=== PATIENT | male | born 1965 | race Caucasian/White ===

== ENCOUNTER 2018-05-10 23:30 | Inpatient (IN) | payer OTHER ==
[2018-05-11] MEDS ORDERED: Lorazepam 2 MG/ML VIAL SLOW IVP PRN (01:38)
[2018-05-11] MEDS ORDERED: Ondansetron PF 4 MG/2 ML Vial IVP PRN (01:42)
[2018-05-11] MEDS: Lorazepam 2 MG/ML VIAL SLOW IVP PRN ×4 (02:06→20:32)
[2018-05-11] MEDS: D5 1/2 NS w/20 mEq KCL 1,000 ML IV SCH ×3 (02:07→18:05)
[2018-05-11] MEDS: Morphine 2 MG/ML SYRINGE SLOW IVP PRN ×2 (02:12→06:03)
[2018-05-11] MEDS: Acetaminophen 1,000 MG in Premix Bag 1 BAG IVPB PRN ×2 (02:43→08:18)
[2018-05-11] MEDS ORDERED: Lidocaine 2% Jelly 5 ML TUBE TOP PRN (03:17)
[2018-05-11] MEDS ORDERED: Chloraseptic Spray 180 ml Bottle PO PRN (03:17)
[2018-05-11] MEDS ORDERED: Cepastat Lozenges 1 LOZ PO PRN (03:18)
[2018-05-11] MEDS ORDERED: Famotidine/PF 20 mg/2ml Vial SLOW IVP SCH ×2 (03:30→21:00)
[2018-05-11 03:36] VITALS: BMI 43.0
[2018-05-11] MEDS: Lorazepam 2 MG/ML VIAL SLOW IVP SCH ×2 (05:35→06:10)
--- NOTE | 2018-05-11 09:07 | RAD ---
RADIOGRAPH ABDOMEN 2 VIEWS: Date: 05/11/18 Time: 0833 hours HISTORY: Small bowel obstruction in 53-year-old male. COMPARISON: None. FINDINGS: The distal portion of a NG tube overlies the medial aspect of the left upper quadrant, overlapping ga s in small volume gastric bubble, with adjacent surgical clips. There are air fluid levels in nondila gasper right hemicolon. There is gas throughout nondilated transverse, descending, and sigmoid colon. Co ntrast material from prior outside study fills the urinary bladder. There is lack of small bowel gas. No pneumoperitoneum is identified under the left hemidiaphragm. Right hemidiaphragm is superior to, outside of field of view. IMPRESSION: 1. Nasogastric tube placement, apparently within a small volume, post bariatric surgery stomach. 2. Lack of small bowel gas makes it difficult to evaluate for small bowel obstruction. 3. CT is recommended if small bowel obstruction is suspected. POS: [facility]
[2018-05-12] MEDS: Lorazepam 2 MG/ML VIAL SLOW IVP PRN (00:25)
[2018-05-12] MEDS: D5 1/2 NS w/20 mEq KCL 1,000 ML IV SCH ×2 (02:30→11:57)
--- NOTE | 2018-05-12 03:50 | HP ---
CHIEF COMPLAINT: Abdominal pain. HISTORY OF PRESENT ILLNESS: Mr. Guzman is a 53-year-old man, who had fairly sudden onset of severe abdominal pain, nausea, and vomiting on the day prior to his admission. He states that his had been diagnosed with norovirus on Sunday, but at that time, he was asymptomatic. He had explosive diarrhea at home, but when he came to the emergency room, he was unable to produce a stool specimen for norovirus evaluation. He underwent a CT scan at an outside ER, which showed some dilated loops of bowel with decompressed distal loops of bowel, worrisome for a possible partial small bowel obstruction. An NG tube was placed and he was transferred to [place] for further care. Overnight, his NG tube has put out minimal nonbilious fluid. He has history of a gastric bypass in the past and has no further nausea. He has been passing gas, but has not had any bowel movement since his admission, and his x-ray showed bowel gas in the colon without much small bowel gas. His NG tube has since been discontinued, and he states that today he feels normal. He denies any abdominal pain or nausea and has not had any fevers or chills since admission, although he did have some low grade fevers prior to his admission. PAST MEDICAL HISTORY: Morbid obesity, status post gastric bypass surgery by Dr. Guerrero. He does have a history of polycythemia vera, hypertension, prediabetes, hyperlipidemia, and sleep apnea. PAST SURGICAL HISTORY: Lumbar surgery and bariatric surgery. He has had a bowel obstruction in the past, treated by lysis of adhesions and has also had successful nonoperative treatment of a partial bowel obstruction. SOCIAL HISTORY: Chewing tobacco use, but no drug use. He does drink alcohol. FAMILY HISTORY: He has a family history of atrial fibrillation and TIA. REVIEW OF SYSTEMS: 10-system review of systems is negative except per HPI. ALLERGIES: HE HAS MULTIPLE ALLERGIES INCLUDING CEFOXITIN, PROTONIX, STATINS, AND MASTISOL. HOME MEDICATIONS: Include, 1. Afrin. 2. Aspirin. 3. Wellbutrin. 4. Carvedilol. 5. Vitamin D3. 6. Clonidine. 7. Zetia. 8. . 9. Losartan/hydrochlorothiazide. 10. Metformin. 11. Daily multivitamin. 12. Sertraline. 13. Testosterone. 14. Zolpidem. PHYSICAL EXAMINATION: VITAL SIGNS: The patient has been afebrile since his admission. Heart rate in the 80s, respirations 20 to 24, and 91% to 93% saturated on room air. Blood pressure is normal to mildly elevated. GENERAL: Reveals a pleasant man, in no acute distress. He is not flushed or toxic in appearance. He is not jaundiced or icteric. BMI is 43. HEENT: Unremarkable. NECK: Supple without lymphadenopathy or thyroid nodules. HEART: Regular in its rate and rhythm without murmurs, rubs, or gallops. LUNGS: Clear to auscultation bilaterally. ABDOMEN: Soft, nontender, and nondistended. Bowel sounds are somewhat diminished. EXTREMITIES: Warm and well perfused without edema. NEUROLOGIC: No focal deficit. PSYCHIATRIC: Alert, oriented, and appropriate. LABORATORY DATA: White counts at the outside ER were fairly unremarkable. Outside CT images were reviewed and the patient does have some mildly dilated loops of small intestine. Distal small intestine looks normal in caliber, but I do not see a definite transition point and there is a fair amount of gas and stool in the colon. Followup abdominal x-rays this morning showed gas and stool in the colon with a paucity of small bowel gas. ASSESSMENT: Partial small bowel obstruction versus gastroenteritis. At this point, I am leaning toward gastroenteritis given the history of explosive diarrhea, fevers, and his 's recent diagnosis with norovirus. His symptoms appear to have abated and his NG tube has been discontinued. Given his bariatric surgery, NG tube decompression is not very effective, but I will leave him on n.p.o. status today and order a small bowel follow-through for tomorrow. If this is normal as I expect it to be, then we will advance his diet. If point of obstruction is identified, he may require repeat surgery for this. All of his questions were answered and he is satisfied with the plan of care. I will go ahead and restart some of his home medications. Job ID: [id number]
--- NOTE | 2018-05-12 12:00 | RAD ---
SMALL BOWEL SERIES: 05/12/2018 HISTORY: A 53-year-old male with abdominal distention and nausea with vomiting. TECHNIQUE: Bridal Consultant view obtained. Gastrografin administered after removal of NG tube. Serial overhead radiograph ic images. FINDINGS: Contrast fills and progresses out of the small volume stomach, into nondilated loops of small bowel. Normal small bowel fold pattern. Contrast reaches the right colon in 15 minutes. IMPRESSION: 1. Rapid transit of contrast. There is no small bowel obstruction. 2. Status post bariatric surgery. POS: [place]
[2018-05-12 16:31] VITALS: BP 138/92; TEMP 98.2
[2018-05-12] MEDS ORDERED: MD-Gastroview 120 ML BOT ONE (16:42)
== END 2018-05-12 16:44 | disposition home or self-care (01) | DRG 389 ==
LOC: SURG A 05-11 00:24
PROVIDERS: ADMIT Surgery; ATTEND Surgery
DX: K56.600 Partial intestinal obstruction, unspecified as to cause (principal); Z68.41 Body mass index [BMI] 40.0-44.9, adult; K52.9 Noninfective gastroenteritis and colitis, unspecified; Z72.0 Tobacco use; E66.01 Morbid (severe) obesity due to excess calories; Z98.84 Bariatric surgery status; I10 Essential (primary) hypertension; E78.5 Hyperlipidemia, unspecified; G47.30 Sleep apnea, unspecified
CPT/HCPCS: 74019; 74250; J0131; J2060; J2270; J2405; S0028

== ENCOUNTER 2019-05-08 08:06 | Observation (INO) | payer OTHER ==
[2019-05-08 08:37] LABS: #Eosinphils 0.3 thou/uL (0.0-0.7); #Lymphocytes 2.3 thou/uL (1.20-3.40); #Monocytes 0.7 thou/uL (0.11-0.59); #Neutrophils 6.7 thou/uL (1.40-6.50); %Basophils 0.4 % (0.0-1.0); %Eosinophils 2.8 % (0.0-10.0); %Lymphocytes 23.1 % (21.0-51.0); %Monocytes 6.8 % (0.0-10.0); %Neutrophils 66.9 % (42.0-75.0); Hemoglobin 14.8 g/dL (14.0-18.0); Mean Corpuscular HGB CONC 35.2 g/dL (32.0-36.0); Mean Corpuscular Hemoglobin 32.6 pg (27.0-31.0); Mean Corpuscular Volume 92.7 fL (78.0-98.0); Mean Platelet Volume 7.3 fL (7.4-10.4); Platelet Count 302 thou/uL (130-400); Red Blood Cell (RBC) Count 4.54 mill/uL (4.70-6.10); White Blood Cell (WBC) Count 10.1 thou/uL (4.8-10.8)
[2019-05-08 09:01] LABS: ALT (SGPT) 7 U/L (8-55); AST (SGOT) 24 U/L (5-34); Albumin 3.9 g/dL (3.5-5.0); Alkaline Phosphatase 114 U/L (40-110); Anion Gap 12 mmol/L (10-20); BUN (Urea Nitrogen) 17 mg/dL (8.4-25.7); Bilirubin, Total 1.2 mg/dL (0.2-1.2); CK (CPK) 515 U/L (30-200); Calc. Creatinine Clearance 0 mL/min (70-130); Calcium 8.7 mg/dL (7.8-10.44); Carbon Dioxide 28 mmol/L (22-29); Chloride 104 mmol/L (98-107); Estimated GFR-MDRD Greater than 90; Globulin 2.1 g/dL (2.4-3.5); Glucose 87 mg/dL (70-105); Lipase 16 U/L (8-78); Potassium 3.5 mmol/L (3.5-5.1); Sodium 140 mmol/L (136-145)
--- NOTE | 2019-05-08 09:22 | CT ---
CT OF THE ABDOMEN AND PELVIS WITH IV CONTRAST INDICATION: Abdominal swelling and right-sided and midline abdominal pain COMPARISON: None FINDINGS: ABDOMEN: Lung bases: There is a moderate size right pleural effusion with right basilar atelectasis. Liver: No focal lesion. Gallbladder: Normal appearing. Pancreas: Normal. Adrenal glands: Normal. Spleen: Normal. Kidneys and ureters: There is a large right sided retroperitoneal hematoma measuring 12.9 x 11.0 x 17 cm causing anterior displacement of the right kidney. No definite enhancing soft tissue mass is evident. The left kidney is normal-appearing. Vasculature: There are mild vascular calcifications seen involving the visualized vasculature. Lymph nodes:No lymphadenopathy. Free fluid in abdomen:No free fluid is evident. PELVIS: Small and large bowel: Colonic diverticulosis. Small bowel is of normal caliber. Appendix:Not definitely seen Bladder: Normal. Rectal and perirectal soft tissues:Normal. Reproductive structures: The prostate is enlarged measuring 6.3 cm. Free fluid in pelvis: No free fluid is evident. Lymphadenopathy pelvis: No lymphadenopathy is evident. Osseous structures: There is a left total hip prosthesis. There is scattered degenerative and osteoa rthritic changes. Soft tissues:Normal. IMPRESSION: 1. Large right-sided retroperitoneal hematoma causing some moderate anterior displacement of the righ t kidney. Follow-up CT evaluation to exclude presence of underlying retroperitoneal mass is recommended after resolution of the patient's symptoms. No definite suspicious enhancing mass is demo nstrated. 2. Moderate right pleural effusion with right basilar atelectasis. 3. Prostate enlargement 4. Colonic diverticulosis
[2019-05-08 10:01] LABS: PTT 26.2 SEC (22.9-36.1); Prothrombin Time 13.1 SEC (12.0-14.7)
[2019-05-08 10:10] LABS: Bacteria/HPF None Seen HPF (None Seen); Bilirubin Negative (Negative); Blood, Urine Negative (Negative); Clarity Clear (Clear); Glucose, Urine (Dipstick) Normal (Negative); Leukocyte Negative Leu/uL (Negative); Mucous/LPF 1+ LPF (<2+); Nitrite Negative (Negative); Protein, Urine (Dipstick) 30 mg/dL (Neg-Trace); RBC/HPF 0-3 HPF (0-3); Squamous Epithelial 0-3 HPF (0-3); WBC/HPF 0-3 HPF (0-3)
--- NOTE | 2019-05-08 10:22 | PDOC.FPRHP ---
- History of Present Illness Chief Complaint: abd pain History of Present Illness: Patient woke up with severe right flank pain in the middle of the night. States it felt "like a mule had kicked him in the side." He got up to walk around and took ibuprofen which helped his pain. 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 No penetrating injury or external injury evident. Denies bruising on side. Patient has also had URI for last several weeks with a lot of coughing. The coughing hurts his abdomen when coughing. Patient took amoxicillin for dental extraction last week. Patient takes daily [id number]. ED Course: Given NS 1L. Imaging ordered. - Allergies/Adverse Reactions Allergies Allergy/AdvReac Type Severity Reaction Status Date / Time cefoxitin sodium Allergy Severe Verified 05/08/19 12:51 [From Mefoxin] alcohol Allergy Verified 05/08/19 12:51 [From Mastisol Adhesive] gum mastic Allergy Verified 05/08/19 12:51 [From Mastisol Adhesive] methyl salicylate Allergy Verified 05/08/19 12:51 [From Mastisol Adhesive] pantoprazole sodium Allergy Verified 05/08/19 12:51 [From Protonix] storax Allergy Verified 05/08/19 12:51 [From Mastisol Adhesive] Xoarczh-[id number]-Vrw Reductase AdvReac Severe Verified 05/08/19 12:51 Inhibitor - Home Medications Medication Instructions Recorded Confirmed Type Aspirin 325 mg PO HS 01/21/15 05/08/19 History Ezetimibe [Zetia] 10 mg PO HS 01/21/15 05/08/19 History cloNIDine HCl 0.1 mg PO BID PRN 01/21/15 05/08/19 History Sertraline HCl 100 mg PO HS 05/11/18 05/08/19 History Zolpidem Tartrate 10 mg PO HS 05/11/18 05/08/19 History Carvedilol [Coreg] 12.5 mg PO HS 05/08/19 05/08/19 History Fexofenadine HCl [Meghna Allergy] 180 mg PO DAILY PRN 05/08/19 05/08/19 History Fluticasone Propionate [Flonase 2 spray EA NARE DAILY PRN 05/08/19 05/08/19 History Nasal [place]] Levothyroxine Sodium [Synthroid] 100 mcg PO HS 05/08/19 05/08/19 History Comments: Pt reports: Testosterone q2wk Carvedilol 12.5 QPM Ambien Zoloft Seroquel Clonidine PRN [id number] Will med rec. 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 Patient dips tobacco. FHx: DM maternal side, AD, Brain, breast, leukemia, testicular cancer, colon cancer, UC - Review of Systems General: reports: weight/appetite/sleep changes (lost 60 lbs since gastric sleeve). denies: fever/chills Eyes: denies: eye pain ENT: reports: nasal congestion, rhinorrhea Respiratory: reports: cough. denies: shortness of breath Cardiovascular: denies: chest pain, edema Gastrointestinal: reports: abdominal pain. denies: nausea, vomiting, diarrhea, constipation Genitourinary: denies: dysuria (denies hematuria) Skin: denies: rashes (currently sunburned, just returned from cruise) Musculoskeletal: reports: pain (R sided abdominal) Neurological: denies: syncope, weakness Psychological: reports: anxiety. denies: depression - Vital signs BP: 116/59, Pulse: 78, Resp: 18, Temp: 98.1 (Oral), Pain: 10, O2 sat: 95 on ( Room Air), Time: 05/08/2019 08:09. - Physical Exam Constitutional: NAD, awake, alert and oriented, well developed HEENT: normocephalic and atraumatic, other (few teeth visible) Neck: trachea midline Heart: RRR, normal S1/S2, no murmurs/rubs/gallops, no edema Lungs: CTAB, no respiratory distress, no wheezing Abdomen: soft, bowel sounds present, other (TTP over RUQ and R-side, coloration change around umbilicus (slight bruising)) Musculoskeletal: normal structure, normal tone, ROM grossly normal Neurological: no focal deficit Skin: no rash/lesions, capillary refill <2 seconds, no jaundice Heme/Lymphatic: no purpura, no petechia (Red-colored skin, likely due to sunburn , blanches) Psychiatric: normal mood and affect, intact recent and remote memory FMR H&P: Results - Labs Result Diagrams: 05/08/19 08:28 05/08/19 08:28 Lab results: WBC 10.1 thou/uL (4.8-10.8) 05/08/19 08:28 Hgb 14.8 g/dL (14.0-18.0) 05/08/19 08:28 Hct 42.1 % (42.0-52.0) 05/08/19 08:28 MCV 92.7 fL (78.0-98.0) 05/08/19 08:28 Plt Count 302 thou/uL (130-400) 05/08/19 08:28 Neutrophils % 66.9 % (42.0-75.0) 05/08/19 08:28 Sodium 140 mmol/L (136-145) 05/08/19 08:28 Potassium 3.5 mmol/L (3.5-5.1) 05/08/19 08:28 Chloride 104 mmol/L (98-107) 05/08/19 08:28 Carbon Dioxide 28 mmol/L (22-29) 05/08/19 08:28 BUN 17 mg/dL (8.4-25.7) 05/08/19 08:28 Creatinine 0.84 mg/dL (0.7-1.3) 05/08/19 08:28 Glucose 87 mg/dL (70-105) 05/08/19 08:28 Calcium 8.7 mg/dL (7.8-10.44) 05/08/19 08:28 Total Bilirubin 1.2 mg/dL (0.2-1.2) 05/08/19 08:28 AST 24 U/L (5-34) 05/08/19 08:28 ALT 7 U/L (8-55) L 05/08/19 08:28 Alkaline Phosphatase 114 U/L (40-110) H 05/08/19 08:28 Creatine Kinase 515 U/L (30-200) H 05/08/19 08:28 Serum Total Protein 6.0 g/dL (6.0-8.3) 05/08/19 08:28 Albumin 3.9 g/dL (3.5-5.0) 05/08/19 08:28 Lipase 16 U/L (8-78) 05/08/19 08:28 Urine Ketones Trace mg/dL (Negative) A 05/08/19 09:20 Urine Blood Negative (Negative) 05/08/19 09:20 Urine Nitrite Negative (Negative) 05/08/19 09:20 Ur Leukocyte Esterase Negative J[place]ito/uL (Negative) 05/08/19 09:20 Urine RBC 0-3 HPF (0-3) 05/08/19 09:20 Urine WBC 0-3 HPF (0-3) 05/08/19 09:20 Ur Squamous Epith Cells 0-3 HPF (0-3) 05/08/19 09:20 Urine Bacteria None Seen HPF (None Seen) 05/08/19 09:20 - Radiology Interpretation CT scan - abdomen Status: image reviewed by me, report reviewed by me Additional comment: Kidneys and ureters: There is a large right sided retroperitoneal hematoma measuring 12.9 x 11.0 x 17 cm causing anterior displacement of the right kidney. No definite enhancing soft tissue mass is evident. The left kidney is normal-appearing. IMPRESSION: 1. Large right-sided retroperitoneal hematoma causing some moderate anterior displacement of the righ t kidney. Follow-up CT evaluation to exclude presence of underlying retroperitoneal mass is recommended after resolution of the patients symptoms. No definite suspicious enhancing mass is demo nstrated. 2. Moderate right pleural effusion with right basilar atelectasis. 3. Prostate enlargement 4. Colonic diverticulosis Chest x-ray Status: image reviewed by me, report reviewed by me Additional comment: IMPRESSION:Right-sided pleural effusion and right basilar atelectasis. FMR H&P: A/P - Problem List (1) Retroperitoneal hematoma Current Visit: Yes Status: Acute Code(s): K66.1 - HEMOPERITONEUM (2) Status post fall Current Visit: Yes Status: Acute Code(s): Z91.81 - HISTORY OF FALLING (3) HTN (hypertension) Current Visit: Yes Status: Acute Code(s): I10 - ESSENTIAL (PRIMARY) HYPERTENSION (4) HLD (hyperlipidemia) Current Visit: Yes Status: Acute Code(s): E78.5 - HYPERLIPIDEMIA, UNSPECIFIED (5) Hypogonadotropic hypogonadism Current Visit: Yes Status: Acute - Plan Retroperitoneal hematoma - s/p fall x2, on [id number] daily - PT/INR normal - Lois consulted from ED. Appreciate recs as below: - H&H q8h. - Activity: Bedrest w/ up to private bathroom for first 24 hours. - If acute drop in Hgb on 3rd check, will order CT angio of abdomen and look for artery to embolize. - If all is well in first 24 hr, will space H&H checks to q12h and activity will be increased to up and around. - Tranfuse blood if needed. Type & Cross. - Hold home aspirin. No ibuprofen for pain. - Tylenol for pain initially. May escalate as needed. Chronic conditions: Obesity s/p gastric sleeve HTN HLD Anxiety Insomina - continue home meds, except the aspirin Code: full Fluids: none Diet: regular VTE ppx: SCDs GI PPx: none Disposition/LOS: medical, observation. Will monitor Hgb/Hct for 48 hrs. FMR H&P: Upper Level - Pertinent history 54 year old male with PMH HTN, HLD, and obesity presented to ED with right sided flank pain. Patient states that the flank pain was severe enough to wake him from sleep early this morning. He got up, walked around, and took some ibuprofen which he states improved the pain enough to allow him to go back to sleep. Patient woke up this AM with dull ache in right flank and an asymmetry in his abdomen with increased swelling on the right side noted by his who is a nurse. Patient was brought to ED for evaluation where he was found to have a large right sided retroperitoneal hematoma. Patient states he has fallen 2 times in the last 14 days at work. He landed on his back both times. One fall was on dirt and the other was on concrete. Patient does take daily ASA. Patient denies any bruising with falls or penetrating injuries. He denies any history of cancer. 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 Patient follows closely with Dr. Schneider. He does not have history of bleeding previously, nor does he have a known history of coagulopathy. Patient did get a gastric sleeve in 2015. He has had significant gradual weight loss since that time. - Pertinent findings General: Alert and oriented x3. No acute distress. Card: Distant heart sounds. RRR. No appreciable murmur. Resp: No acute respiratory distress. CTA bilaterally. Abdomen: Mild ecchymosis in central abdomen near scar. Tender to mild palpation in right upper quadrant. Ext: No cyanosis or lower extremity swelling. - Plan Date/Time: 05/08/19 1021 I, Mirta Pace, have evaluated this patient and agree with findings/plan as outlined by bakery pastry internship resident. Pertinent changes/additions are listed here. Right sided retroperitoneal hematoma with anterior kidney displacement - Dr. 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 Schneider Secondary polycythemia - D/t testosterone for above HTN - Continue home medication HLD - Not currently on statin due to adverse effects Anxiety - Continue home medications DVT PPX: SCD's; no lovenox given bleeding Code status: Full Dispo: Obs on medical. Anticipate LOS <48 hours. Addendum - Attending - Attending Attestation Date/Time: 05/08/19 [id number] I personally evaluated the patient and discussed the management with Dr. Williamson /Katelynn. I agree with the History, Examination, Assessment and Plan documented above with any addition or exceptions noted below. Patient is 54-year-old male presenting with acute onset of abdominal pain and distention over the last few hours. Patient had severe pain and presented to the emergency room for further evaluation. CT scan was obtained at that time which revealed a large right sided retroperitoneal hematoma. Patients blood counts were somewhat decreased from his baseline but overall stable at the time. Patients vital signs were also stable. Urology was consulted from the emergency room who recommended serial H&H measurements as well as bed rest overnight. Monitor for recurrence of bleeding and if so will need angiography. Pending clinical course, possible discharge home tomorrow if the bleeding has stopped and pain well-controlled. Further management per clinical course.
--- NOTE | 2019-05-08 10:32 | RAD ---
Portable chest: HISTORY: Right chest and abdominal pain. COMPARISON: CT abdomen with images through lung bases. 05/08/2019. FINDINGS:Opacification right lung base consistent with right pleural effusion and right basilar atele ctasis as confirmed on today's CT scan. Left lung clear. Heart and mediastinum unremarkable. IMPRESSION:Right-sided pleural effusion and right basilar atelectasis.
[2019-05-08] MEDS ORDERED: Acetaminophen 325 MG TAB PO PRN (11:25)
[2019-05-08] MEDS ORDERED: Ondansetron ODT 4 MG TAB PO PRN (11:25)
[2019-05-08] MEDS ORDERED: Ondansetron PF 4 MG/2 ML Vial IVP PRN (11:25)
[2019-05-08] MEDS ORDERED: Iopamidol 370 76% 50 ML VIAL FS ONE (11:43)
[2019-05-08 12:47] VITALS: BMI 38.6
--- NOTE | 2019-05-08 13:51 | CON ---
DATE OF CONSULTATION: 05/08/2019 Consulting is Emergency Room. Rope Walker is Dr. Abreu. REASON FOR CONSULTATION: Retroperitoneal hematoma. CHIEF COMPLAINT: Abdominal swelling. HISTORY OF PRESENT ILLNESS: Mr. Guzman is a 54-year-old white male, who presented to the emergency room today with complaints regarding worsening right flank pain and abdominal swelling. 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 He did not report any hematuria or ongoing pain afterwards, but he slipped and fell again onto his back a week ago. Again, he did not experience any hematuria or prolonged pain, and recovered. Last night, he began having abdominal discomfort and swelling along with pain in his right side. The pain got progressively worse to the point where he took some ibuprofen and tried to go back to bed. His noted that his abdomen looked more distended and with his pain now reaching levels up to approximately 6 to 7 and starting to become sharp instead of dull, she brought the patient to the emergency room where he underwent a CT scan demonstrating a large retroperitoneal hematoma on the right side. There was no obvious source of the bleeding. I was consulted for further assistance. On my discussion with the patient, he reports he has never had any kind of bleeding episodes before. He denies any history of hematuria or voiding difficulties. He is currently on testosterone replacement and is polycythemic as a result of this. He has no history of any type of malignancy previously, any previous urologic surgeries, or history of urolithiasis. ALLERGIES: 1. CEFOXITIN. 2. ALCOHOL. 3. GUM. 4. METHYLSALICYLATE. 5. STATINS. 6. STORAX. 7. PROTONIX. HOME MEDICATIONS: 1. Aspirin 325 once a day. 2. Bupropion 150 mg daily. 3. Vitamin D3 of 6000 units daily. 4. Zetia 10 mg daily. 5. Vascepa 2 g p.o. b.i.d. 6. Multivitamins 1 tablet daily. 7. Testosterone enanthate 200 mg IM every 2 weeks. 8. Clonidine 0.1 mg p.o. b.i.d. 9. Metformin 500 mg p.o. b.i.d. 10. Carvedilol 3.125 mg p.o. b.i.d. 11. Losartan/hydrochlorothiazide 1 tablet daily. 12. Afrin nasal spray 2 sprays to nose every night. 13. Sertraline 100 mg p.o. once a day. 14. Zolpidem 10 mg p.o. at night. PAST MEDICAL HISTORY: Significant for: 1. Low testosterone. 2. Hypertension. 3. Tuberculosis. 4. Prediabetes. 5. Hyperlipidemia. 6. Anxiety. 7. Insomnia. 8. Hypopituitarism. PAST SURGICAL HISTORY: 1. Left hip replacement. 2. Right knee replacement. 3. Multiple knee and meniscal repairs. 4. Small bowel obstruction with repair. 5. Laminectomy for spinal stenosis. 6. Gastric sleeve. 7. Cardiac catheterization. FAMILY HISTORY: Significant for diabetes, leukemia, breast cancer, testicular cancer, and colon cancer. SOCIAL HISTORY: The patient denies tobacco, alcohol, or illicit drug use. REVIEW OF SYSTEMS: A 12-point review of systems is reviewed and negative other than the right flank pain that the patient had commented on, specifically denies any fevers, chills, nausea, vomiting, chest pain, shortness of breath, hematuria, or voiding complaints. Remainder of 12-point review of systems is reviewed and otherwise negative. PHYSICAL EXAMINATION: VITAL SIGNS: Temperature 98.3, pulse 75, respirations 18, blood pressure 138/65, saturation 95% on room air. GENERAL: In no apparent distress. Communicative and alert. Well-nourished, well-developed, obese. HEENT: Normocephalic, atraumatic. Pupils are symmetric and round. Trachea midline. Moist mucous membranes. CARDIOVASCULAR: Regular rate and rhythm. Normal S1 and S2. Symmetric pulses. CHEST: No increased work of breathing. Symmetric expansion. LUNGS: Clear anteriorly. ABDOMEN: Soft, mildly distended, protuberant. Tenderness to palpation on the right without guarding or rebound. No tenderness on the left. No suprapubic tenderness. No significant CVA tenderness. No organomegaly or masses palpable. No obvious hernias. There is a slight amount of ecchymosis around the umbilicus and along the right flank slightly. MUSCULOSKELETAL: No joint deformity or joint erythema noted. Full range of motion. Prior well-healed knee scars noted. NEUROLOGIC: Cranial nerves 2 through 12 appear grossly intact. No focal sensory or motor deficits identified. SKIN: Warm and dry. No rashes or lesions. Good turgor. LYMPHATICS: No lymphadenopathy palpable in the supraclavicular, cervical, axillary, or inguinal regions. PSYCHIATRIC: Alert and oriented x3. Appropriate mood and affect. LABORATORY EVALUATION: A full set of labs are in the [facility] system, which I have reviewed. Of note, the patient's white count is 10.1 with hemoglobin of 14.8. INR is currently 1. Creatinine is 0.84. Creatine kinase of 515. CT with contrast from today demonstrates a large right-sided retroperitoneal hematoma measuring 11 x 17 cm displacing the right kidney anteriorly. I have reviewed these images myself. The adrenal gland is also identified without any obvious masses or lesions. The retroperitoneal and bowel structures also appear relatively stable. There are no obvious mass noted on the kidney, renal lacerations, or retroperitoneal masses noted at the current time. There is also moderate right pleural effusion with some prostate enlargement. ASSESSMENT AND PLAN: A 54-year-old white male with a large right retroperitoneal hematoma with an associated right-sided pleural effusion, presumably secondary to his previous falls. It is unclear at the current time if there was an underlying mass present which has started the bleeding and this probably will not be able to be discovered until the hematoma has resolved. I would recommend continuing serial H and H checks and bedrest for 24 hours. If the patient's hemoglobin remained stable, then the bed rest restrictions can be listed, the patient can begin ambulating with another 24 hours of monitoring for H and H. If his hemoglobin still remains stable with activity, then the patient can be discharged home and I will plan to follow up with him in approximately 1 to 2 weeks for another H and H check and then ultimately a repeat CT scan in 2 to 3 months. However, if the patient's hemoglobin continues to trend down, transfusions can be given as necessary. I would recommend a CT angiogram if he continues to bleed to look for an embolization source. Open surgical intervention would only be recommended for life-threatening bleeding with hemodynamic instability as this will likely result in nephrectomy and removal of other potential organs and tissues that may not need to be removed, but may be necessary to control bleeding. I will continue to follow along and make recommendations. I have discussed the plan with the Family Medicine team who is admitting. Job ID: [id number]
[2019-05-08] MEDS: traMADol HCl 50 MG TAB PO PRN ×2 (14:06→20:11)
[2019-05-08] MEDS ORDERED: cloNIDine 0.1 MG TAB PO PRN (14:21)
[2019-05-08 16:31] LABS: Hemoglobin 14.6 g/dL (14.0-18.0); Platelet Count 299 thou/uL (130-400)
[2019-05-08] MEDS ORDERED: FLU VACC QS2019-20(6MOS UP)/PF 60 MCG/0.5 ML SYRINGE IM ONE (18:00)
[2019-05-08] MEDS: Zolpidem Tartrate 5 MG TAB PO SCH (20:10)
[2019-05-08] MEDS: Ezetimibe 10 MG TAB PO SCH (20:11)
[2019-05-08] MEDS: Carvedilol 6.25 MG TAB PO SCH (20:11)
[2019-05-08] MEDS: Levothyroxine Sodium 100 MCG TAB PO SCH (20:11)
[2019-05-08] MEDS ORDERED: Carvedilol 25 MG TAB PO SCH (21:00)
--- NOTE | 2019-05-09 06:12 | PDOC.FM ---
- Subjective Subjective: Pt reports he is doing well today. He says his pain has been well controlled. Has been able to eat and drink normally. Asked if the 0.8 drop on hgb was significant and he was appropriately counseled. - Objective MAR Reviewed: Yes Vital Signs & Weight: Vital Signs (12 hours) Temp Pulse Resp BP Pulse Ox 05/09/19 04:26 98.2 F 78 16 111/60 96 05/08/19 19:32 98.6 F 77 18 146/80 H 95 Weight Weight 122.073 kg I&O: 05/07/19 05/08/19 05/09/19 06:59 06:59 06:59 Intake Total 900 Output Total 575 Balance 325 Result Diagrams: 05/09/19 00:13 05/08/19 08:28 Phys Exam - Physical Examination Constitutional: NAD nonlabored breathing well perfused Gastrointestinal: no distention Psychiatric: normal affect, A&O x 3 Deviation from normal: redness in her face Dx/Plan (1) Retroperitoneal hematoma Code(s): K66.1 - HEMOPERITONEUM Status: Acute (2) Status post fall Code(s): Z91.81 - HISTORY OF FALLING Status: Acute (3) HTN (hypertension) Code(s): I10 - ESSENTIAL (PRIMARY) HYPERTENSION Status: Acute (4) HLD (hyperlipidemia) Code(s): E78.5 - HYPERLIPIDEMIA, UNSPECIFIED Status: Acute (5) Hypogonadotropic hypogonadism Status: Acute - Plan Plan: 54-yo M admitted for observation: Retroperitoneal hematoma - s/p fall x2, on [id number] daily - PT/INR normal - Lois consulted from ED. Appreciate recs as below: - H&H q8h. Has remained stable thus far, pending the recheck at 8AM. If normal, can space out to q12h and increase activity. - Activity: Bedrest w/ up to private bathroom for first 24 hours. - Tranfuse blood if needed. - Hold home aspirin. No ibuprofen for pain. - Tylenol and tramadol for pain Chronic conditions: Obesity s/p gastric sleeve HTN HLD Anxiety Insomina - continue home meds, except the aspirin Code: full Fluids: none Diet: regular VTE ppx: SCDs GI PPx: none Disposition/LOS: medical, observation. Will monitor Hgb/Hct for 48 hrs. Addendum - Attending - Attending Attestation Date/Time: 05/09/19 [id number] I personally evaluated the patient and discussed the management with Dr. Williamson. I agree with the History, Examination, Assessment and Plan documented above with any addition or exceptions noted below. Patient doing well. Blood counts overall stable. His pain is improved. He will begin with some activity today and continue to monitor H/H per Urology. If does well today and counts stable, likely dc tomorrow per Urology.
[2019-05-09] MEDS: traMADol HCl 50 MG TAB PO PRN ×2 (07:30→18:08)
[2019-05-09 08:50] LABS: Hemoglobin 14.8 g/dL (14.0-18.0)
[2019-05-09 10:47] LABS: Bacteria/HPF None Seen HPF (None Seen); Bilirubin Negative (Negative); Blood, Urine Negative (Negative); Clarity Clear (Clear); Glucose, Urine (Dipstick) Normal (Negative); Leukocyte Negative Leu/uL (Negative); Nitrite Negative (Negative); Protein, Urine (Dipstick) 20 mg/dL (Neg-Trace); RBC/HPF 0-3 HPF (0-3); Squamous Epithelial 0-3 HPF (0-3); WBC/HPF 0-3 HPF (0-3)
--- NOTE | 2019-05-09 12:03 | PRG ---
DATE OF SERVICE: 05/09/2019 SUBJECTIVE: The patient states he is feeling fine. He has no significant flank pain. His abdominal distention and pain have also improved. OBJECTIVE: VITAL SIGNS: Temperature 98.1, pulse 88, respirations 16, blood pressure 129/68, saturation 93% on room air. GENERAL: No apparent distress, communicative and alert. CARDIOVASCULAR: Regular rate and rhythm. ABDOMEN: Soft, mildly distended, nontender. : Nonfocal. No edema. No scrotal swelling or ecchymosis. Both testes are descended bilaterally without masses or lesions. No tenderness. EXTREMITIES: No clubbing, cyanosis, or edema. LABORATORY EVALUATION: The full set of labs is in the [facility] system, which I have reviewed. Of note, the patient's hemoglobin has remained extremely stable overnight. The last three hemoglobins are 14.6, 14, and 14.8 sequentially. ASSESSMENT AND PLAN: A 54-year-old white male with retroperitoneal hematoma of unexplained origin. The patient has no evidence of ongoing bleeding at this time with bedrest. I would recommend lifting his bed rest activities and allowing him to ambulate and walk around today. His hemoglobin and hematocrit checks can be spaced out every 12 hours with one being done tonight and another one being done tomorrow morning. If those are both stable, then I would recommend discharge home with followup with me in approximately 1 to 2 weeks for another hemoglobin and hematocrit check. If that is stable, then again we will plan for CT scan with and without contrast in approximately 3 months, at which time the retroperitoneal hematoma should have resolved and we can look for underlying cause, if any, of why the patient had the bleeding. Job ID: [id number]
[2019-05-09 20:07] LABS: Hemoglobin 14.3 g/dL (14.0-18.0)
[2019-05-09] MEDS: Ezetimibe 10 MG TAB PO SCH (20:12)
[2019-05-09] MEDS: Carvedilol 6.25 MG TAB PO SCH (20:12)
[2019-05-09] MEDS: Levothyroxine Sodium 100 MCG TAB PO SCH (20:13)
[2019-05-09] MEDS: Zolpidem Tartrate 5 MG TAB PO SCH (20:17)
--- NOTE | 2019-05-10 05:47 | PDOC.FM ---
- Subjective Subjective: Pt states he is feeling well. Denies N/V, chest pain or SOB. No acute overnight events, hgb stable since admission. - Objective MAR Reviewed: Yes Vital Signs & Weight: Vital Signs (12 hours) Temp Pulse Resp BP BP Pulse Ox 05/10/19 04:05 98.0 F 87 16 115/72 94 L 05/09/19 23:20 98.4 F 92 19 105/60 94 L 05/09/19 19:25 99.5 F 97 16 145/85 H 95 Weight Weight 122.073 kg I&O: 05/08/19 05/09/19 05/10/19 06:59 06:59 06:59 Intake Total 900 1600 Output Total 575 1100 Balance 325 500 Result Diagrams: 05/10/19 07:56 05/08/19 08:28 Phys Exam - Physical Examination Constitutional: NAD HEENT: moist MMs, sclera anicteric Neck: no nodes, supple, full ROM Respiratory: no wheezing, no rales, no rhonchi, clear to auscultation bilateral Cardiovascular: RRR, no significant murmur, no rub Gastrointestinal: soft, non-tender, no distention, positive bowel sounds Musculoskeletal: no edema, pulses present Neurological: non-focal, normal sensation, moves all 4 limbs Psychiatric: normal affect, A&O x 3 Skin: no rash, normal turgor, cap refill <2 seconds Dx/Plan (1) Retroperitoneal hematoma Code(s): K66.1 - HEMOPERITONEUM Status: Acute (2) HLD (hyperlipidemia) Code(s): E78.5 - HYPERLIPIDEMIA, UNSPECIFIED Status: Chronic (3) HTN (hypertension) Code(s): I10 - ESSENTIAL (PRIMARY) HYPERTENSION Status: Chronic (4) Status post fall Code(s): Z91.81 - HISTORY OF FALLING Status: Acute - Plan Plan: 54-yo M admitted for observation: Retroperitoneal hematoma - s/p fall x2, was on [id number] daily - PT/INR normal - Lois consulted from ED. Appreciate recs as below: - H&H q8h. Has remained stable thus far, pending the recheck at 8AM. If normal, can space out to q12h and increase activity. - Activity: Bedrest w/ up to private bathroom for first 24 hours, increase activity. - Tranfuse blood if needed. - Hold home aspirin. No ibuprofen for pain. - Tylenol and tramadol for pain Chronic conditions: Obesity s/p gastric sleeve HTN HLD Anxiety Insomina - continue home meds, except the aspirin Code: full Fluids: none Diet: regular VTE ppx: SCDs GI PPx: none Disposition/LOS: medical, observation. Will monitor Hgb/Hct for 48 hrs. D/C home today if H&H stable this AM. Addendum - Attending - Attending Attestation Date/Time: 05/10/19 1982 I personally evaluated the patient and discussed the management with Dr. Montes. I agree with the History, Examination, Assessment and Plan documented above with any addition or exceptions noted below.
[2019-05-10 07:50] VITALS: BP 111/61; TEMP 98.4
[2019-05-10] MEDS ORDERED: Benzonatate 100 MG CAP PO PRN (08:19)
--- NOTE | 2019-05-11 23:51 | DIS ---
DATE OF ADMISSION: 05/08/2019 DATE OF DISCHARGE: 05/10/2019 ADMITTING ATTENDING: Mac Cerda MD DISCHARGE ATTENDING: Chris Barrow MD RESIDENT: Danika Montes DO CONSULTS: Urology, Dr. Abreu. PROCEDURES PERFORMED: Abdomen and pelvis CT which showed retroperitoneal hematoma along the right side with moderate anterior displacement of the right kidney. Follow up CT evaluation recommended to check for resolution of patient's symptoms in 3-6 months per Lois. DIAGNOSES: 1. Retroperitoneal hematoma, right-sided. 2. Obesity, status post gastric sleeve surgery. 3. Hypertension. 4. Hyperlipidemia. 5. Anxiety. 6. Insomnia. DISCHARGE MEDICATIONS: 1. Tessalon Perles 100 mg p.o. t.i.d., 10 capsules. 2. Coreg 6.25 mg p.o. at bedtime. 3. Clonidine 0.1 mg p.o. b.i.d. p.r.n. for systolic greater than 180. 4. Zetia 10 mg p.o. at bedtime. 5. Fexofenadine 180 mg p.o. daily. 6. Flonase 2 sprays each nares daily. 7. Quetiapine 300 mg p.o. at bedtime. 8. Sertraline 100 mg p.o. at bedtime. 9. Zolpidem 10 mg p.o. at bedtime. HISTORY OF PRESENT ILLNESS/HOSPITAL COURSE: Mr. Guzman is a 54-year-old male, who came into the emergency department with some right-sided flank pain. He says that he has had a couple falls recently, but nothing substantial that made him think he could have been injured. He was found to have a right-sided retroperitoneal hematoma with anterior displacement of the right kidney. The patient had a hemoglobin of 14, which remained stable throughout the hospital course. Dr. Abreu with Urology was consulted and recommended bedrest for the first day and then to increase activity as tolerated with measures to maintain a safe lifestyle, not getting up on ladders, or doing any work that would increase his risk of falls. The patient is to follow up with Dr. Abreu in 1 to 2 weeks. The patient is to have a repeat CT in 3 to 6 months. DISPOSITION: The patient was stable upon discharge. Eager to go back home. DISCHARGE INSTRUCTIONS: 1. Location: Home. 2. Diet: Heart healthy. 3. Activity: Limited to activities to decrease his risk of falls and injury to self. 4. Followup: Follow up with Dr. Abreu in [address] Schneider in 3 days. Job ID: [id number]
== END 2019-05-10 11:20 | disposition home or self-care (01) ==
LOC: ERS 08:06 → 2SW 12:25
PROVIDERS: ADMIT Student in an Organized Health Care Education/Training Program; ATTEND Student in an Organized Health Care Education/Training Program
DX: K66.1 Hemoperitoneum (principal); I10 Essential (primary) hypertension; E78.5 Hyperlipidemia, unspecified; F41.9 Anxiety disorder, unspecified; E23.0 Hypopituitarism; E66.9 Obesity, unspecified; F17.220 Nicotine dependence, chewing tobacco, uncomplicated; K57.30 Diverticulosis of large intestine without perforation or abscess without bleeding; N40.0 Benign prostatic hyperplasia without lower urinary tract symptoms; R73.03 Prediabetes; G47.00 Insomnia, unspecified; Z68.38 Body mass index [BMI] 38.0-38.9, adult; Z79.82 Long term (current) use of aspirin; Z79.899 Other long term (current) drug therapy; Z88.1 Allergy status to other antibiotic agents; Z88.8 Allergy status to other drugs, medicaments and biological substances; Z91.048 Other nonmedicinal substance allergy status; Z91.81 History of falling; Z98.84 Bariatric surgery status
CPT/HCPCS: 36415; 71045; 74177; 80053; 81001; 81003; 81015; 82550; 83690; 83874; 85014; 85018; 85025; 85610; 85730; 86850; 86900; 86901; 90471; 90686; 96360; G0008; G0378; Q9967

== ENCOUNTER 2019-05-14 15:02 | Outpatient (CLI) | payer OTHER ==
--- NOTE | 2019-05-14 17:09 | RAD ---
PA AND LATERAL VIEWS CHEST: Date: 05/14/19 HISTORY: Right-sided pleural effusion follow-up. Chest pain. Cough. Shortness of breath. FINDINGS: Comparison made with exam of 05/08/19. Right-sided pleural effusion and adjacent atelectatic change is again seen. The heart size is normal. A calcified granuloma in the left lung is again seen. IMPRESSION: Right-sided pleural effusion. POS: [facility]
== END 2019-05-14 15:03 | disposition home or self-care (01) ==
LOC: BICRAD 15:02
PROVIDERS: ATTEND Family Medicine
DX: J90 Pleural effusion, not elsewhere classified (principal)
CPT/HCPCS: 71046

== ENCOUNTER 2019-05-28 15:01 | Outpatient (CLI) | payer OTHER ==
--- NOTE | 2019-05-28 16:16 | CT ---
CT ABDOMEN AND PELVIS WITH IV CONTRAST 05/28/2019 CLINICAL INFORMATION: Retroperitoneal hematoma. Follow-up evaluation. Patient seems to have discomfort. COMPARISON: 05/08/2019. Technique: Multiple contiguous axial CT images are obtained through the abdomen and pelvis with IV contrast. Cor onal reformatted images are provided. FINDINGS: Lower Chest: Moderately large right pleural effusion and associated atelectasis is again present. Lef t lung base demonstrates minimal atelectasis. Vessels: Vascular calcifications are seen in the abdominal aorta. The abdominal aorta is normal in ca liber. Abdomen: Portal vein:Patent Gallbladder: Within normal limits for CT imaging. Liver: within normal limits. Spleen: within normal limits. Pancreas: within normal limits. Adrenals: within normal limits. Kidneys: Right kidney is displaced anteriorly by large retroperitoneal hemorrhage. The kidneys otherw ise demonstrate a normal CT appearance bilaterally. Bowel: Small bowel loops are normal in caliber. Colonic diverticulosis is present. Postsurgical patton es of the stomach are again noted. Appendix: Not definitely visualized. Peritoneum: Trace amount of free fluid is seen. Mesentery and Retroperitoneum: There is a large area of increased density seen in the retroperitoneum on the right which again displaces the right kidney anteriorly. This irregular large area of increased density is difficult to accurately measure due to irregular lobulated margins and similar d ensity to the adjacent right psoas muscle. However, this area of increased density measures similar in size to prior exam on similar slice selections measuring 16.8 cm x 14.3 cm x 10.9 cm. There are no dular areas seen in the retroperitoneum in this location and in the perirenal fat. This area of increased density is unable to be from the right psoas muscle or the right quadratus lumbor um muscle. These muscles are enlarged and likely involved with this process. There is evidence of thickening of the anterior as well as posterior perirenal fascia. There is been no interval improveme nt or change in density of this large masslike area with nodularity. Abdominal Wall: There is mild subcutaneous edema seen involving the anterior as well as right anterio r and anterolateral abdominal wall. Pelvis: Reproductive Organs: No pelvic masses. Pelvis within normal limits. Bladder: within normal limits. Bones: within normal limits. IMPRESSION: 1. Persistent large area of increased density in the retroperitoneal location on the right with multi ple nodular areas present. There has been no significant interval change in this large area of increased density when compared to the prior exam, and there also appears to be involvement of the ri ght psoas and quadratus lumborum musculature with thickening of the anterior as well as posterior perirenal fascia. Neoplastic process such as retroperitoneal carcinoma is diagnosis of exclusion. Whi le areas of hemorrhage in this region are a possibility, improvement over this period of time would be expected. If further imaging is warranted, PET CT scan examination versus MRI is suggested. 2. Moderately large right pleural effusion and associated atelectasis. 3. Above findings discussed with Dr. Schneider on 05/28/2019 at 1607 hours.
== END 2019-05-28 15:02 | disposition home or self-care (01) ==
LOC: BICCT 15:01
PROVIDERS: ATTEND Family Medicine
DX: K66.1 Hemoperitoneum (principal); J90 Pleural effusion, not elsewhere classified; J98.11 Atelectasis
CPT/HCPCS: 74177

== ENCOUNTER 2019-06-12 02:19 | Inpatient (IN) | payer OTHER ==
[2019-06-12] MEDS ORDERED: Ketorolac Tromethamine 30 MG/ML VIAL IVP PRN ×2 (04:02→16:58)
[2019-06-12] MEDS ORDERED: Morphine 2 MG/ML SYRINGE SLOW IVP PRN ×2 (04:03→16:58)
[2019-06-12 04:06] VITALS: BMI 35.6
[2019-06-12] MEDS ORDERED: D5 1/2 NS w/20 mEq KCL 1,000 ML IV SCH (04:15)
[2019-06-12] MEDS: Morphine 4 MG/ML VIAL SLOW IVP PRN ×2 (04:25→08:36)
[2019-06-12] MEDS: Ondansetron PF 4 MG/2 ML Vial IVP PRN ×2 (04:27→11:13)
--- NOTE | 2019-06-12 04:49 | PDOC.FPRHP ---
- History of Present Illness Chief Complaint: Abdominal Pain History of Present Illness: Pt is a 54 yo male with PMH significant for hx of SBO x 4, gastric sleeve, HTN, SAWYER requiring CPAP, polycythemia, DMi, R pleural effusion, Perinephric mass who presents for a small bowel obstruction directly transferred from [place]. He has history of SBO in the past with the most recent 4 years ago. His symptoms tarted around 1600 on 06/11/19. Pt felt bloating, distention, constipation; unable to pass flatus, constipation since Sunday, nausea. He endorsed diffuse abdominal pain with light touch. He states this feels like his previous episodes. ED Course: He was seen in [place] and CT scan revealed SBO. WBC elevated to 15 with neutrophil elevation, no bands. Of note he did not have a perinephric mass noted on CT concerning for malignancy. - Allergies/Adverse Reactions Allergies Allergy/AdvReac Type Severity Reaction Status Date / Time cefoxitin sodium Allergy Severe Verified 05/08/19 12:51 [From Mefoxin] alcohol Allergy Verified 05/08/19 12:51 [From Mastisol Adhesive] ceftriaxone [From Rocephin] Allergy Verified 05/08/19 19:03 gum mastic Allergy Verified 05/08/19 12:51 [From Mastisol Adhesive] methyl salicylate Allergy Verified 05/08/19 12:51 [From Mastisol Adhesive] pantoprazole sodium Allergy Verified 05/08/19 12:51 [From Protonix] storax Allergy Verified 05/08/19 12:51 [From Mastisol Adhesive] Abtfaaz-Iua-Sfi Reductase AdvReac Severe Verified 05/08/19 12:51 Inhibitor - Home Medications Medication Instructions Recorded Confirmed Type Ezetimibe [Zetia] 10 mg PO HS 01/21/15 06/12/19 History cloNIDine HCl 0.1 mg PO BID PRN 01/21/15 06/12/19 History Sertraline HCl 100 mg PO HS 05/11/18 06/12/19 History Zolpidem Tartrate 10 mg PO HS 05/11/18 06/12/19 History Carvedilol [Coreg] 6.25 mg PO HS 05/08/19 06/12/19 History Fexofenadine HCl [Meghna Allergy] 180 mg PO DAILY PRN 05/08/19 06/12/19 History Fluticasone Propionate [Flonase 2 spray EA NARE DAILY PRN 05/08/19 06/12/19 History Nasal [place]] Levothyroxine Sodium [Synthroid] 100 mcg PO HS 05/08/19 06/12/19 History QUEtiapine Fumarate [SEROquel] 300 mg PO HS 05/08/19 06/12/19 History metFORMIN [Glucophage] 500 mg PO BID-WM 06/12/19 06/12/19 History - History PMHx: SBO x 4, gastric sleeve, HTN, SAWYER requiring CPAP, polycythemia, DMi, R pleural effusion, Perinephric mass PSHx: gastric sleeve, SBO 1 year ago, L knee, L hip FHx: non-contributory Social: dips, no alcohol, drugs - Review of Systems General: reports: fever/chills, weight/appetite/sleep changes Respiratory: denies: cough, congestion Cardiovascular: denies: chest pain, palpitation Gastrointestinal: reports: nausea, constipation. denies: vomiting, diarrhea Skin: denies: rashes, lesions Neurological: denies: numbness, syncope - Vital signs BP: 144/80 HR: 97 RR: 20 Tmax: 97.4 Pox: 95 % on RA Wt: 112.5 kg - Physical Exam Constitutional: awake, alert and oriented -Constitutional: uncomfortable appearing Heart: RRR, normal S1/S2 Lungs: CTAB, no respiratory distress, good air movement -Abdomen: bowel sounds present, tenderness to palpation in all quadrants, distended Neurological: no focal deficit, CN II-XII intact FMR H&P: A/P - Problem List (1) SBO (small bowel obstruction) Current Visit: Yes Status: Acute Code(s): K56.609 - UNSP INTESTNL OBST, UNSP TO PARTIAL VERSUS COMPLETE OBST (2) Borderline diabetes mellitus Current Visit: Yes Status: Acute Code(s): R73.03 - PREDIABETES (3) SAWYER (obstructive sleep apnea) Current Visit: Yes Status: Acute Code(s): G47.33 - OBSTRUCTIVE SLEEP APNEA ( ADULT) (PEDIATRIC) (4) Acquired polycythemia Current Visit: Yes Status: Acute Code(s): D75.1 - SECONDARY POLYCYTHEMIA (5) Retroperitoneal hematoma Current Visit: No Status: Acute Code(s): K66.1 - HEMOPERITONEUM (6) HLD (hyperlipidemia) Current Visit: No Status: Chronic Code(s): E78.5 - HYPERLIPIDEMIA, UNSPECIFIED (7) HTN (hypertension) Current Visit: No Status: Chronic Code(s): I10 - ESSENTIAL (PRIMARY) HYPERTENSION - Plan Pt is a 54 yo male with PMH who presents for SBO: # SBO Hx of SBO x 4 requiring surg x 1. - NG tube placed - zofran prn - Would like Dr. Guerrero consulted if surg needed - morphine pain # Perinephric Mass - noted on CT - did not discuss with pt this morning on admission - PET scan - Possible biopsy # DM - continued rhina meds # HTN - continued home meds # HLD - continued home meds # SAWYER - requires cpap at home # Anx/Dep - continued home meds # Hypothyroid - continued home meds FMR H&P: Upper Level - Plan Date/Time: 06/12/19 [id number] I, Sixto Schmidt MD, have evaluated this patient and agree with findings/plan as outlined by newsroom intern resident. Pertinent changes/additions are listed here. Carmelo Guzman is a 54 year old M with a PMH of HTN, HLD, Hx of spontaneous retroperitoneal hematoma, hx of right pleural effusion, polycythemia, Hx of SBO X4 (one requiring surgery) who was transferred from [place] ED due to small bowel obstruction. Pt had fairly acute onset diffuse mid abdominal pain with associated nausea yesterday afternoon. Symptoms progressively worsened prompting him to go to ED. Denies any fever, chills, chest pain, dyspnea, vomiting/diarrhea, GI bleeding. At outside ED, vitals were stable and wnl. Labs showed WBC 15, Lactic acid 1.6, otherwise wnl. CT abd showed 14 X 17 cm R posterior perinephric mass, hemorrhage vs soft tissue, mild abdominal small bowel loops and right pleural effusion. Pt given 1 L NS, Morphine 4 mg, Zofran in ED. NG tube was placed. Pt states that he is feeling slightly less abdominal pressure since NG tube placement. Pt being admitted to inpatient medical for SBO. He was admitted recently for the spontaneous retroperitoneal hematoma and was instructed to have repeat CT to evaluate for improvement. Dr. Abreu was involved during that admission. The hematoma has shown no improvement and there is now concern for mass. Will consider biopsy and PET and will get notify Dr. Abreu of patient's admission. Will continue bowel decompression and IVFs, along with pain control for SBO. If no improvement, will get Gen Surg on board. Anticipate hospital stay >48 hours. Please see newsroom intern note above for full H&P, which I have reviewed and agree with. PCP: Wyatt Code Status: FULL CODE
--- NOTE | 2019-06-12 07:46 | RAD ---
Chest AP view INDICATION: NG tube placement COMPARISON: May 08, 2019 FINDINGS: Lungs:There is mild right basilar atelectasis Cardiac silhouette:The cardiomediastinal silhouette appears within normal limits. Pulmonary vasculature:Normal Pleural spaces:There is a moderate size right pleural effusion Upper abdomen:There is a gastric catheter in the region of the gastric fundus Osseous structures: No acute osseous abnormality. Additional findings:None. IMPRESSION: Moderate right pleural effusion with mild right basilar atelectasis. Gastric catheter tip projecting in the region of the gastric fundus.
[2019-06-12] MEDS: Lactated Ringer's 1,000 ML IV SCH ×3 (08:32→21:53)
[2019-06-12] MEDS: metFORMIN 500 MG TAB PO SCH ×2 (08:33→18:30)
[2019-06-12] MEDS: Famotidine/PF 20 mg/2ml Vial SLOW IVP SCH (08:33)
[2019-06-12] MEDS ORDERED: chlorproMAZINE HCl 25 MG TAB PO PRN (09:23)
--- NOTE | 2019-06-12 10:58 | RAD ---
XR Chest Pa Lat STANDARD HISTORY: Pleural effusion COMPARISON: Earlier exam of same date FINDINGS: The heart size is normal. The moderate-sized right pleural effusion is again seen with molly cent atelectatic change. Calcified granulomas in the left lung is redemonstrated. There is been interval placement of a nasogastric tube which can be traced into the stomach with tip excluded from bone. IMPRESSION: Moderate right pleural effusion.
--- NOTE | 2019-06-12 16:06 | CON ---
DATE OF CONSULTATION: REASON FOR CONSULTATION: Abdominal pain. HISTORY OF PRESENT ILLNESS: Mr. Guzman is a 54-year-old man, who presented to the hospital with sudden onset of abdominal pain and nausea. He has had several episodes of small bowel obstruction and states that these symptoms felt very similar to previous episode, so he came to the emergency room, where a CT confirmed a small bowel obstruction, and he was admitted. He had an NG tube placed in [place] and was transferred to [facility] for further care. By his family's report, he had about 250 mL of NG output prior to his transfer and has had almost a full canister of output since being admitted. He states that he is not really having any abdominal pain any longer, although he still feels a little pressure in his abdomen. He has not passed any gas that he knows of today and states that for the past couple of days, he has not been passing gas normally. He has a recent history of a retroperitoneal hematoma versus mass, which is being worked up by Dr. Abreu of Urology and Dr. Guerrero of General Surgery. The plan was to obtain a PET scan since the area of presumed hemorrhage has not really improved over a 1-month time, and that PET scan was actually scheduled for today, but by his family's report, insurance company had declined to cover the PET scan until he has a biopsy done. He also has a presumed sympathetic pleural effusion on the right, which is basically asymptomatic. He states that he developed some vague abdominal discomfort and bloating around Thanksgiving, which is what led to the discovery of the changes in the retroperitoneum and the pleural effusion. CT on admission did not show any significant change in the appearance of the retroperitoneal hematoma versus mass compared to the CT done back in April. The patient has a past surgical history of gastric sleeve by Dr. Guerrero. He has also had a lysis of adhesions for one of his small bowel obstructions, but the others have been managed nonoperatively. This is his fifth admission overall for small bowel obstruction. His last admission was approximately a year ago, although that was felt to most likely be norovirus rather than obstruction. PAST MEDICAL HISTORY: Morbid obesity, obstructive sleep apnea, prediabetes, retroperitoneal hemorrhage versus mass, pleural effusion, polycythemia vera, hypertension, and small bowel obstructions. PAST SURGICAL HISTORY: Gastric sleeve, exploratory laparotomy for small bowel obstruction with lysis of adhesions, multiple left knee surgeries and left knee replacements, left hip replacements, and lumbar surgery. FAMILY HISTORY: Noncontributory. SOCIAL HISTORY: The patient does not smoke, drink, or use illicit drugs. He does use oral tobacco. REVIEW OF SYSTEMS: The patient has had some cold sweats and subjective fevers when the pain is at its most intense. He denies any shortness of breath, although he has had some coughing. Denies any recent diarrhea, but has had constipation. PHYSICAL EXAMINATION: VITAL SIGNS: The patient is afebrile. Heart rate is mildly elevated in the 96 to 106 range. The respiratory rate is 14. He is 92% saturated on room air. Blood pressure 147/83. GENERAL: Reveals a pleasant gentleman, in no acute distress. He has an NG tube in place, which is currently clamped since he received an oral medication for hiccuping. There is thick brownish fluid in the NG canister, which is nearly full. HEENT: Unremarkable. NECK: Supple without lymphadenopathy or thyroid nodules. HEART: Regular in its rate and rhythm without murmurs, rubs, or gallops. LUNGS: Clear to auscultation bilaterally, diminished in the left base. ABDOMEN: Soft. Mildly tender to palpation in the left greater than right upper quadrant without rigidity, rebound, or guarding. No palpable masses or hernias. Bowel sounds are somewhat high-pitched. EXTREMITIES: Warm and well perfused without significant edema. NEUROLOGIC: No focal deficits. PSYCHIATRIC: Alert, oriented, and appropriate. LABORATORY DATA: White count in [place] was slightly elevated at 15. BUN and creatinine were normal. Electrolytes were unremarkable. Bilirubin was slightly elevated at 1.5, and alkaline phosphatase was mildly elevated at 116. UA showed some ketones. CT images done from [place] are reviewed, and I agree with the written report. The retroperitoneal abnormalities and pleural effusion appear basically unchanged. He has moderate dilation of the proximal small bowel with normal caliber distal small bowel consistent with a small bowel obstruction versus ileus, but more likely small bowel obstruction. ASSESSMENT: Small bowel obstruction. The patient also has a retroperitoneal hemorrhage, although underlying mass cannot be completely excluded. He did have a CT at an outside ER a year ago when he came with his last episode of nausea, vomiting, and abdominal pain, and I do not recall that any retroperitoneal abnormalities were noted at that time. He did have 2 falls prior to his diagnosis with a retroperitoneal hemorrhage versus mass, and this is felt most likely be traumatic initially, but due to failure of resolution, concern for underlying retroperitoneal abnormality, mass, or neoplasm has been raised. The patient is currently comfortable on bowel rest with NG decompression. I recommended a period of conservative management for his bowel obstruction. If he does require surgery for the bowel obstruction, I would not recommend any intraoperative biopsy since this would be basically blind, and there is a large area, approximately 11 x 17 cm involved. I do think that ultrasound-guided thoracentesis of the pleural fluid is reasonable, and the fluid to be sent for cytology. If feasible, this could be done during his inpatient stay; however, this is most likely reactive rather than malignant. Dr. Guerrero had planned to consider CT-guided retroperitoneal biopsy after the PET scan when Dr. Abreu is back in town. They will both be returning next week. Workup of the retroperitoneal abnormality is nonurgent, however. I discussed the plan with the patient's family, and they expressed understanding and agreement with the plan. Job ID: [id number]
[2019-06-12] MEDS ORDERED: Morphine 4 MG/ML VIAL SLOW IVP PRN (16:58)
[2019-06-12] MEDS ORDERED: Ondansetron PF 4 MG/2 ML Vial IVP PRN (16:58)
[2019-06-12] MEDS ORDERED: chlorproMAZINE HCl 25 MG in Sodium Chloride 0.9% 50 ML IVPB SCH (17:00)
[2019-06-12] MEDS: Carvedilol 3.125 MG TAB PO SCH (21:44)
[2019-06-12] MEDS: Ezetimibe 10 MG TAB PO SCH (21:44)
[2019-06-12] MEDS: Zolpidem Tartrate 5 MG TAB PO SCH (21:45)
[2019-06-13] MEDS: Lactated Ringer's 1,000 ML IV SCH ×2 (05:59→17:23)
[2019-06-13 06:00] LABS: ALT (SGPT) Less than 7 U/L (8-55); AST (SGOT) 17 U/L (5-34); Albumin 3.4 g/dL (3.5-5.0); Alkaline Phosphatase 94 U/L (40-110); Anion Gap 15 mmol/L (10-20); BUN (Urea Nitrogen) 17 mg/dL (8.4-25.7); Bilirubin, Total 1.6 mg/dL (0.2-1.2); Calc. Creatinine Clearance 149 mL/min (70-130); Calcium 8.7 mg/dL (7.8-10.44); Carbon Dioxide 24 mmol/L (22-29); Chloride 104 mmol/L (98-107); Estimated GFR-MDRD 89; Globulin 2.1 g/dL (2.4-3.5); Glucose 82 mg/dL (70-105); Potassium 3.5 mmol/L (3.5-5.1); Protein, Total 5.5 g/dL (6.0-8.3); Sodium 139 mmol/L (136-145)
[2019-06-13 06:03] LABS: Band 7 % (5-11); Eosinophils 3 % (0-10); Hemoglobin 14.1 g/dL (14.0-18.0); Lymphocytes 23 % (21-51); MDiff Complete? YES; Mean Corpuscular HGB CONC 36.8 g/dL (32.0-36.0); Mean Corpuscular Hemoglobin 33.8 pg (27.0-31.0); Mean Corpuscular Volume 91.9 fL (78.0-98.0); Mean Platelet Volume 7.7 fL (7.4-10.4); Monocytes 6 % (0-10); Neutrophil 61 % (42-75); Platelet Count 302 thou/uL (130-400); RBC Distribution Width 14.3 % (11.5-14.5); Red Blood Cell (RBC) Count 4.16 mill/uL (4.70-6.10); White Blood Cell (WBC) Count 10.3 thou/uL (4.8-10.8)
[2019-06-13] MEDS: metFORMIN 500 MG TAB PO SCH ×2 (08:28→17:23)
[2019-06-13] MEDS: Famotidine/PF 20 mg/2ml Vial SLOW IVP SCH (08:31)
--- NOTE | 2019-06-13 09:41 | RAD ---
KUB: INDICATIONS: Small bowel obstruction. COMPARISON: Prior CT abdomen and pelvis dated 06/12/2019. FINDINGS: A few mildly dilated loops of small bowel are seen within the left central abdomen. There is a gastri c catheter now placed in the region of the gastric fundus. Gas is present within the rectum and colon . There is a left total hip prosthesis in place. There is scattered degenerative change. The lung bas es are clear. IMPRESSION: 1. A few mildly prominent gas filled loops of small bowel within the left mid abdomen may reflect seq uela of a mild partial small bowel obstruction. Gas is present within the colon and rectum. Mild amou nt of retained stool seen within the colon. 2. Gastric catheter projecting in the region of the gastric fundus. POS: OFF
[2019-06-13] MEDS ORDERED: Acetaminophen 80 MG Suppository PR PRN (10:06)
[2019-06-13] MEDS ORDERED: hydrOXYzine 10 MG TAB PO PRN (10:11)
--- NOTE | 2019-06-13 10:40 | PDOC.FM ---
- Subjective Subjective: Pt feels well this AM. Pain has improved, nausea has improved. Pt has been feeling anxious and almost pulled his NG tube out yesterday. otherwise no acute complaints - Objective Vital Signs & Weight: Vital Signs (12 hours) Temp Pulse Resp BP Pulse Ox 06/13/19 07:54 98.8 F 91 20 128/69 95 06/13/19 03:46 98.5 F 88 18 111/73 95 06/12/19 23:21 98.8 F 99 18 132/80 95 Weight Admit Weight 112.491 kg Weight 112.491 kg I&O: 06/12/19 06/13/19 06/14/19 06:59 06:59 06:59 Intake Total 1440 Output Total 300 Balance 1140 Result Diagrams: 06/13/19 05:03 06/13/19 05:03 Phys Exam - Physical Examination Constitutional: NAD HEENT: PERRLA, moist MMs Neck: no JVD, supple Respiratory: no wheezing, clear to auscultation bilateral Cardiovascular: RRR, no significant murmur Gastrointestinal: soft, positive bowel sounds mild-moderate TTP Musculoskeletal: pulses present Neurological: normal sensation, moves all 4 limbs Psychiatric: normal affect, A&O x 3 Skin: no rash, normal turgor Dx/Plan (1) SAWYER (obstructive sleep apnea) Code(s): G47.33 - OBSTRUCTIVE SLEEP APNEA (ADULT) (PEDIATRIC) Status: Acute (2) SBO (small bowel obstruction) Code(s): K56.609 - UNSP INTESTNL OBST, UNSP TO PARTIAL VERSUS COMPLETE OBST Status: Acute (3) Retroperitoneal hematoma Code(s): K66.1 - HEMOPERITONEUM Status: Acute (4) HLD (hyperlipidemia) Code(s): E78.5 - HYPERLIPIDEMIA, UNSPECIFIED Status: Chronic (5) HTN (hypertension) Code(s): I10 - ESSENTIAL (PRIMARY) HYPERTENSION Status: Chronic - Plan Plan: SBO A- NG tube has been palliative, he now passing gas. Surg consulted, recs much appreciated. P- NG tube placed - zofran prn - mgmt per surgery - likely follow through study tomorrow - morphine pain Perinephric Mass A- pt has plans for outpt workup including coordinated CT guided biopsy with Dr. Guerrero and Lois. P- no mgmt inpt, plan for outpt plan as above DM - continued rhina meds HTN - continued home meds HLD - continued home meds SAWYER - requires cpap at home Anx/Dep - continued home meds, will add atarax prn Hypothyroid - continued home meds
[2019-06-13] MEDS ORDERED: hydrOXYzine 10 MG TAB PO SCH (12:00)
--- NOTE | 2019-06-13 12:19 | RAD ---
EXAM: XR Chest Insp/Exp PROVIDED CLINICAL HISTORY: Postthoracentesis COMPARISON: 06/12/2019 FINDINGS: Interval reduction in right pleural density status post thoracentesis. Small right apical pneumothora x. Calcified granuloma left lung. Lungs appear otherwise clear. Enteric catheter is noted with proximal sidehole lucency overlying the upper abdomen. IMPRESSION: Small right apical pneumothorax status post thoracentesis. Dr. Tobar notified 12:16 PM 06/13/2019.
[2019-06-13 12:58] LABS: INR-International Normal Ratio 1.1; PTT 24.4 SEC (22.9-36.1); Prothrombin Time 13.7 SEC (12.0-14.7)
--- NOTE | 2019-06-13 13:26 | ULT ---
Sonographic guided thoracentesis HISTORY: Large right pleural effusion. FINDINGS: After explaining the procedure and answering all questions, sonographic evaluation showed l arge amount right pleural fluid. Sterile technique, buffered local anesthesia, sonographic guidance, and a right posterolateral approach were used to carefully advance the tip of a 19-gauge Giordano eh needle and catheter into the free fluid. Catheter was left to drain a total volume of 1.0 L. Fluid was sent to pathology for evaluation. Catheter was removed with minimal fluid remaining. Patien t tolerated the procedure well and was returned in unchanged condition. IMPRESSION: Technically successful sonographic guided paracentesis. Pathology is pending.
[2019-06-13] MEDS ORDERED: Cepastat Lozenges 1 LOZ PO PRN (13:38)
[2019-06-13 13:46] LABS: RBC Count-Automated (BF) 77 /cumm; WBC/Nucleated-Auto (BF) 222 uL
[2019-06-13 14:34] LABS: BF Color Yellow; Body Fluid Source Thoracentesis Fluid; Clarity Hazy (Clear); Tube # EDTA
[2019-06-13] MEDS: Ketorolac Tromethamine 30 MG/ML VIAL IVP PRN (14:48)
[2019-06-13 14:58] LABS: BF Segmented Neutrophils 35 %; Cell Count Non Hematic 6 %; Eosinophils 1 %; Lymphocytes 58 %
[2019-06-13 16:08] LABS: Fluid, LDH 274 U/L (Not Available); Fluid, Triglycerides 28 mg/dL (Not Available)
--- NOTE | 2019-06-13 17:40 | PDOC.GSPN ---
Surgery Progress Note: Subj - Subjective Narrative: Patient feels much better today. He is passing a little gas and is no longer nauseated. NG output has gone down overnight and is a little bit clearer in color. He is still slightly tender to palpation in the left upper quadrant. Bowel sounds are present. Assessment/plan: Small bowel obstruction, clinically improving. Continue bowel rest and NG decompression. Small bowel follow-through tomorrow with Gastrografin. Dr. Tracy is covering this weekend. Surgery Progress Note: Obj - Vital signs Vital signs: Vital Signs - Most Recent Temp Pulse Resp BP Pulse Ox 99.2 F 91 18 138/68 93 L 06/13/19 15:45 06/13/19 15:45 06/13/19 15:45 06/13/19 15:45 06/13/19 15:45 Surgery Progress Note: Results - Labs Result Diagrams: 06/13/19 05:03 06/13/19 05:03 Lab results: Laboratory Results - last 24 hr 06/13/19 06/13/19 06/13/19 05:03 05:03 12:00 WBC 10.3 RBC 4.16 L Hgb 14.1 Hct 38.2 L MCV 91.9 MCH 33.8 H MCHC 36.8 H RDW 14.3 Plt Count 302 MPV 7.7 Neutrophils % (Manual) 61 Band Neuts % (Manual) 7 Lymphocytes % (Manual) 23 Monocytes % (Manual) 6 Eosinophils % (Manual) 3 PT INR APTT Sodium 139 Potassium 3.5 Chloride 104 Carbon Dioxide 24 Anion Gap 15 BUN 17 Creatinine 0.89 Estimated GFR (MDRD) 89 Glucose 82 Calcium 8.7 Total Bilirubin 1.6 H AST 17 ALT Less than 7 L Alkaline Phosphatase 94 Lactate Dehydrogenase Serum Total Protein 5.5 L Albumin 3.4 L Globulin 2.1 L Albumin/Globulin Ratio 1.6 Fluid Source Fluid Tube Number Fluid Color Fluid Clarity Fluid WBC Fluid RBC Fluid Seg Neutrophil % Fluid Lymphocytes % Fluid Eosinophils % Non-Hematological % Fluid LDH 274 Fluid Cholesterol Fluid Triglycerides 28 Fluid Comment 06/13/19 06/13/19 06/13/19 12:00 12:00 12:32 WBC RBC Hgb Hct MCV MCH MCHC RDW Plt Count MPV Neutrophils % (Manual) Band Neuts % (Manual) Lymphocytes % (Manual) Monocytes % (Manual) Eosinophils % (Manual) PT 13.7 INR 1.1 APTT 24.4 Sodium Potassium Chloride Carbon Dioxide Anion Gap BUN Creatinine Estimated GFR (MDRD) Glucose Calcium Total Bilirubin AST ALT Alkaline Phosphatase Lactate Dehydrogenase Serum Total Protein Albumin Globulin Albumin/Globulin Ratio Fluid Source Thoracentesis Fluid Fluid Tube Number EDTA Fluid Color Yellow Fluid Clarity Hazy H Fluid WBC 222 Fluid RBC 77 Fluid Seg Neutrophil % 35 Fluid Lymphocytes % 58 Fluid Eosinophils % 1 Non-Hematological % 6 Fluid LDH Fluid Cholesterol 118 Fluid Triglycerides Fluid Comment Note: 06/13/19 15:23 WBC RBC Hgb Hct MCV MCH MCHC RDW Plt Count MPV Neutrophils % (Manual) Band Neuts % (Manual) Lymphocytes % (Manual) Monocytes % (Manual) Eosinophils % (Manual) PT INR APTT Sodium Potassium Chloride Carbon Dioxide Anion Gap BUN Creatinine Estimated GFR (MDRD) Glucose Calcium Total Bilirubin AST ALT Alkaline Phosphatase Lactate Dehydrogenase 215 Serum Total Protein Albumin Globulin Albumin/Globulin Ratio Fluid Source Fluid Tube Number Fluid Color Fluid Clarity Fluid WBC Fluid RBC Fluid Seg Neutrophil % Fluid Lymphocytes % Fluid Eosinophils % Non-Hematological % Fluid LDH Fluid Cholesterol Fluid Triglycerides Fluid Comment
[2019-06-13] MEDS: Zolpidem Tartrate 5 MG TAB PO SCH (20:18)
[2019-06-13] MEDS: Ezetimibe 10 MG TAB PO SCH (20:19)
[2019-06-13] MEDS: Carvedilol 3.125 MG TAB PO SCH (20:21)
[2019-06-14] MEDS: Lactated Ringer's 1,000 ML IV SCH ×3 (00:30→19:13)
[2019-06-14] MEDS: Ketorolac Tromethamine 30 MG/ML VIAL IVP PRN (01:31)
[2019-06-14 06:38] LABS: ALT (SGPT) Less than 7 U/L (8-55); AST (SGOT) 11 U/L (5-34); Albumin 3.1 g/dL (3.5-5.0); Alkaline Phosphatase 87 U/L (40-110); Anion Gap 15 mmol/L (10-20); BUN (Urea Nitrogen) 18 mg/dL (8.4-25.7); Bilirubin, Total 1.7 mg/dL (0.2-1.2); Calc. Creatinine Clearance 153 mL/min (70-130); Calcium 8.5 mg/dL (7.8-10.44); Carbon Dioxide 27 mmol/L (22-29); Chloride 102 mmol/L (98-107); Estimated GFR-MDRD Greater than 90; Globulin 2.1 g/dL (2.4-3.5); Glucose 73 mg/dL (70-105); Potassium 3.5 mmol/L (3.5-5.1); Protein, Total 5.2 g/dL (6.0-8.3); Sodium 140 mmol/L (136-145)
[2019-06-14 07:00] LABS: Band 8 % (5-11); Hemoglobin 13.1 g/dL (14.0-18.0); Lymphocytes 22 % (21-51); MDiff Complete? YES; Mean Corpuscular HGB CONC 36.3 g/dL (32.0-36.0); Mean Corpuscular Hemoglobin 33.3 pg (27.0-31.0); Mean Corpuscular Volume 91.6 fL (78.0-98.0); Mean Platelet Volume 7.6 fL (7.4-10.4); Monocytes 11 % (0-10); Neutrophil 59 % (42-75); Platelet Count 273 thou/uL (130-400); RBC Distribution Width 14.7 % (11.5-14.5); Red Blood Cell (RBC) Count 3.95 mill/uL (4.70-6.10); White Blood Cell (WBC) Count 11.3 thou/uL (4.8-10.8)
[2019-06-14] MEDS: Famotidine/PF 20 mg/2ml Vial SLOW IVP SCH (08:30)
[2019-06-14] MEDS: metFORMIN 500 MG TAB PO SCH ×2 (08:30→17:23)
[2019-06-14] MEDS ORDERED: Ketorolac Tromethamine 30 MG/ML VIAL IVP PRN (08:31)
--- NOTE | 2019-06-14 11:42 | PDOC.FM ---
- Subjective Subjective: reports more flatus, no BMs, improved abdominal pain and nausea, he has had intermittent CP on right side since his thoracentesis. - Objective Vital Signs & Weight: Vital Signs (12 hours) Temp Pulse Resp BP Pulse Ox 06/14/19 08:29 96 06/14/19 08:10 99.3 F 92 20 129/74 96 06/14/19 03:52 98.5 F 88 18 127/73 94 L 06/14/19 00:15 98.6 F 88 18 114/69 95 Weight Admit Weight 112.491 kg Weight 112.491 kg I&O: 06/13/19 06/14/19 06/15/19 06:59 06:59 06:59 Intake Total 1440 1320 Output Total 300 600 Balance 1140 720 Result Diagrams: 06/14/19 05:52 06/14/19 05:52 Phys Exam - Physical Examination Constitutional: NAD HEENT: moist MMs, sclera anicteric Neck: supple, full ROM Respiratory: no wheezing, clear to auscultation bilateral Cardiovascular: RRR, no significant murmur Gastrointestinal: soft, positive bowel sounds less TTP than yesterday Musculoskeletal: pulses present Neurological: normal sensation, moves all 4 limbs Psychiatric: normal affect, A&O x 3 Skin: no rash, normal turgor Dx/Plan (1) SAWYER (obstructive sleep apnea) Code(s): G47.33 - OBSTRUCTIVE SLEEP APNEA (ADULT) (PEDIATRIC) Status: Acute (2) SBO (small bowel obstruction) Code(s): K56.609 - UNSP INTESTNL OBST, UNSP TO PARTIAL VERSUS COMPLETE OBST Status: Acute (3) Retroperitoneal hematoma Code(s): K66.1 - HEMOPERITONEUM Status: Acute (4) HLD (hyperlipidemia) Code(s): E78.5 - HYPERLIPIDEMIA, UNSPECIFIED Status: Chronic (5) HTN (hypertension) Code(s): I10 - ESSENTIAL (PRIMARY) HYPERTENSION Status: Chronic - Plan Plan: SBO A- NG tube has been palliative, he continues passing gas. Surg consulted, recs much appreciated. P- NG tube placed - zofran prn - mgmt per surgery - likely follow through this morning - morphine pain Perinephric Mass A- pt has plans for outpt workup including coordinated CT guided biopsy with Dr. Parrent and Lois. P- no mgmt inpt, plan for outpt plan as above R pleural effusion A- improved on CXR this admission from previous one 1month ago. S/p IR thoracentesis. Path pending P- f/u path R pneumothorax A- small and 2/2 thoracentesis P- repeat CXR today to monitor for progression/resolution DM - continued rhina meds HTN - continued home meds HLD - continued home meds SAWYER - requires cpap at home Anx/Dep - continued home meds, will add atarax prn Hypothyroid - continued home meds
[2019-06-14] MEDS ORDERED: MD-Gastroview 120 ML BOT ONE (11:44)
--- NOTE | 2019-06-14 11:51 | PRG ---
DATE OF SERVICE: 06/14/2019 CHIEF COMPLAINT: "I'm feeling better." HISTORY OF PRESENT ILLNESS: The patient is a 54-year-old gentleman, who has been in the hospital for several days regarding a small bowel obstruction. He is hospital day 3. He reports that he is passing flatus. No nausea. He has not had a bowel movement yet. He is hungry. No abdominal pain to speak off. He states that he is breathing fairly well. PHYSICAL EXAMINATION: VITAL SIGNS: Temperature 99.3, heart rate 80s to 90s, blood pressure one-teens to 120s over 60s to 70s. I's and O's, 600 recorded out of the NG tube, appears to be somewhat dark. GENERAL: Sitting up in bed, in no apparent distress. NECK: Supple with a midline trachea. HEART: LUNGS: Grossly clear to auscultation bilaterally. The patient is breathing normally. ABDOMEN: Soft with normoactive bowel sounds. No tenderness to palpation. No distention. SKIN: Good turgor. No jaundice. EXTREMITIES: Full range of motion. PSYCHIATRIC: Good insight, good judgement. ASSESSMENT: Partial small bowel obstruction - clinically resolving - the patient is passing flatus. Pain has resolved. He is currently undergoing a small-bowel follow through series. We will follow up on these results. PLAN: If contrast moves into the patient's colon, remove NG-tube and start clear liquid diet. At that point, from a surgical standpoint, he could potentially be discharged home. Job ID: [id number]
--- NOTE | 2019-06-14 11:56 | PRG ---
DATE OF SERVICE: 06/14/2019 I have examined the patient and discussed the case with Dr. Koko Mcdonnell. I agree with his assessment and plan. We will likely get a small-bowel follow-through today with the following plan as per Surgery. Job ID: [id number]
[2019-06-14] MEDS ORDERED: hydrOXYzine 25 MG TAB PO PRN (12:15)
--- NOTE | 2019-06-14 12:41 | RAD ---
PORTABLE CHEST ONE VIEW: 06/14/2019 12:44 p.m. HISTORY: Monitor progression of pneumothorax. COMPARISON: Exam from the previous day. FINDINGS: A small right apical pneumothorax is again seen. The heart size is normal. The enteric catheter remains in place. The calcified granuloma in the left lung is again seen. IMPRESSION: Stable small right apical pneumothorax. POS: [facility]
--- NOTE | 2019-06-14 13:29 | RAD ---
Small bowel follow-through HISTORY: Abdominal pain. Obstruction. FINDINGS: Gastrografin contrast was administered through the nasogastric tube. Nondilated loops of sm all bowel are opacified throughout the abdomen. Contrast is present within the right colon at 2.5 hours. IMPRESSION: No evidence of bowel obstruction.
[2019-06-14] MEDS: Ezetimibe 10 MG TAB PO SCH (20:05)
[2019-06-14] MEDS: Zolpidem Tartrate 5 MG TAB PO SCH (20:06)
[2019-06-14] MEDS: Carvedilol 3.125 MG TAB PO SCH (20:06)
[2019-06-15] MEDS: Lactated Ringer's 1,000 ML IV SCH ×2 (01:27→10:10)
[2019-06-15 05:50] LABS: ALT (SGPT) Less than 7 U/L (8-55); AST (SGOT) 11 U/L (5-34); Albumin 3.3 g/dL (3.5-5.0); Alkaline Phosphatase 87 U/L (40-110); Anion Gap 14 mmol/L (10-20); BUN (Urea Nitrogen) 13 mg/dL (8.4-25.7); Bilirubin, Total 1.8 mg/dL (0.2-1.2); Calc. Creatinine Clearance 162 mL/min (70-130); Calcium 8.4 mg/dL (7.8-10.44); Carbon Dioxide 29 mmol/L (22-29); Chloride 101 mmol/L (98-107); Estimated GFR-MDRD Greater than 90; Globulin 2.1 g/dL (2.4-3.5); Glucose 94 mg/dL (70-105); Potassium 3.3 mmol/L (3.5-5.1); Protein, Total 5.4 g/dL (6.0-8.3); Sodium 141 mmol/L (136-145)
[2019-06-15 06:03] LABS: Hemoglobin 13.6 g/dL (14.0-18.0); Mean Corpuscular Volume 91.8 fL (78.0-98.0); Mean Platelet Volume 7.4 fL (7.4-10.4); Platelet Count 300 thou/uL (130-400); RBC Distribution Width 14.1 % (11.5-14.5); Red Blood Cell (RBC) Count 4.11 mill/uL (4.70-6.10); White Blood Cell (WBC) Count 10.5 thou/uL (4.8-10.8)
[2019-06-15 06:37] LABS: Band 1 % (5-11); Eosinophils 5 % (0-10); Lymphocytes 17 % (21-51); MDiff Complete? YES; Monocytes 12 % (0-10); Neutrophil 63 % (42-75); Reactive Lymphocytes 2 % (0-10)
--- NOTE | 2019-06-15 07:36 | PDOC.FM ---
- Subjective Subjective: Pt feels improved, states his abdominal pain is resolved, denies n/v, denies SOB or CP from pneumothorax. - Objective Vital Signs & Weight: Vital Signs (12 hours) Temp Pulse Resp BP Pulse Ox 06/15/19 04:55 98.7 F 84 18 123/74 95 06/14/19 20:00 98.9 F 90 18 148/84 H 94 L Weight Admit Weight 112.491 kg Weight 112.491 kg I&O: 06/14/19 06/15/19 06/16/19 06:59 06:59 06:59 Intake Total 1320 2650 Output Total 600 300 Balance 720 2350 Result Diagrams: 06/15/19 05:14 06/15/19 05:14 Phys Exam - Physical Examination Constitutional: NAD HEENT: moist MMs, sclera anicteric Neck: supple, full ROM Respiratory: no wheezing, clear to auscultation bilateral Cardiovascular: RRR, no significant murmur Gastrointestinal: soft, non-tender Musculoskeletal: pulses present Neurological: normal sensation, moves all 4 limbs Psychiatric: normal affect, A&O x 3 Skin: no rash, normal turgor Dx/Plan (1) SAWYER (obstructive sleep apnea) Code(s): G47.33 - OBSTRUCTIVE SLEEP APNEA (ADULT) (PEDIATRIC) Status: Acute (2) SBO (small bowel obstruction) Code(s): K56.609 - UNSP INTESTNL OBST, UNSP TO PARTIAL VERSUS COMPLETE OBST Status: Acute (3) Retroperitoneal hematoma Code(s): K66.1 - HEMOPERITONEUM Status: Acute (4) HLD (hyperlipidemia) Code(s): E78.5 - HYPERLIPIDEMIA, UNSPECIFIED Status: Chronic (5) HTN (hypertension) Code(s): I10 - ESSENTIAL (PRIMARY) HYPERTENSION Status: Chronic - Plan Plan: SBO A- resolving, gastrographin follow-through showed contrast in colon. Per surgery NG was pulled and pt on clear diet. Will likely be able to DC this today P- clear diet -DC today likely Perinephric Mass A- pt has plans for outpt workup including coordinated CT guided biopsy with Dr. Guerrero and Lois. P- no mgmt inpt, plan for outpt plan as above R pleural effusion A- improved on CXR this admission from previous one 1month ago. S/p IR thoracentesis. Path pending, fluid is exudative P- f/u path in outpt setting, pt has appointment with Dr. Wolf on 06/23/2019 R pneumothorax A- small and 2/2 thoracentesis, repeat CXR showed no progression, pt is asymptomatic P- f/u outpt with PCP closely DM - continued rhina meds HTN - continued home meds HLD - continued home meds SAWYER - requires cpap at home Anx/Dep - continued home meds, will add atarax prn Hypothyroid - continued home meds
[2019-06-15] MEDS: metFORMIN 500 MG TAB PO SCH (08:18)
[2019-06-15] MEDS: Famotidine/PF 20 mg/2ml Vial SLOW IVP SCH (08:49)
--- NOTE | 2019-06-15 11:16 | PRG ---
DATE OF SERVICE: 06/15/2019 I have examined the patient. I have discussed his care with Dr. Koko Mcdonnell and agree with his assessment and plan. Job ID: [id number]
[2019-06-15 12:03] VITALS: BP 132/73; TEMP 98.8
== END 2019-06-15 12:00 | disposition home or self-care (01) | DRG 388 ==
LOC: SURG A 03:25
PROVIDERS: ADMIT Student in an Organized Health Care Education/Training Program; ATTEND Student in an Organized Health Care Education/Training Program
PROC: 0W993ZX Drainage of Right Pleural Cavity, Percutaneous Approach, Diagnostic (ICD-10-PCS; principal; 2019-06-12)
DX: K56.600 Partial intestinal obstruction, unspecified as to cause (principal); K66.1 Hemoperitoneum; J93.83 Other pneumothorax; J90 Pleural effusion, not elsewhere classified; I10 Essential (primary) hypertension; G47.33 Obstructive sleep apnea (adult) (pediatric); E11.9 Type 2 diabetes mellitus without complications; D75.1 Secondary polycythemia; E78.5 Hyperlipidemia, unspecified; E03.9 Hypothyroidism, unspecified; N28.89 Other specified disorders of kidney and ureter; F41.9 Anxiety disorder, unspecified; F32.9 Major depressive disorder, single episode, unspecified; Z96.652 Presence of left artificial knee joint; Z96.642 Presence of left artificial hip joint; Z98.84 Bariatric surgery status
CPT/HCPCS: 36415; 71045; 71046; 74018; 74250; 76942; 80053; 82465; 83615; 84478; 85007; 85027; 85060; 85610; 85730; 87070; 87205; 88112; 88305; 89051; J1885; J2270; J2405; Q0161; Q9963; S0028

== ENCOUNTER 2019-06-23 08:51 | Outpatient (CLI) | payer OTHER ==
--- NOTE | 2019-06-23 09:47 | RAD ---
CHEST 2 VIEWS: Date: 06/23/2019 HISTORY: Dyspnea. COMPARISON: 06/14/2019. FINDINGS: There is some reaccumulation of right pleural fluid. The previously noted small apical pneumothorax h as resolved. Stable nodular densities seen in both lungs. Heart size is normal. The left lung is stab le. IMPRESSION: 1. Reaccumulation of right pleural fluid. The previously noted small right-sided pneumothorax has re solved. 2. Bilateral nodular parenchymal changes are stable. POS: [facility]
== END 2019-06-23 08:52 | disposition home or self-care (01) ==
LOC: RAD 08:51
PROVIDERS: ATTEND Internal Medicine Critical Care Medicine
DX: R06.00 Dyspnea, unspecified (principal)
CPT/HCPCS: 71046

== ENCOUNTER 2019-06-25 13:40 | Outpatient (CLI) | payer OTHER ==
--- NOTE | 2019-06-25 14:35 | ULT ---
EXAM: Left lower extremity venous Doppler US HISTORY: left lower extremity edema and pain FINDINGS: Grayscale, color-flow, Doppler evaluation, spectral analysis of the left lower extremity venous struc tures is performed with 2-D imaging. The left common femoral, superficial femoral, popliteal, posterior tibial, proximal greater saphenous and profunda femoral veins are imaged. There is normal luminal compressibility, flow, and augmentation the visualized deep venous structures of the left lower extremity. IMPRESSION: No evidence of a deep vein thrombosis in the left lower extremity.
== END 2019-06-25 13:41 | disposition home or self-care (01) ==
LOC: ULT 13:40
PROVIDERS: ATTEND Family Medicine
DX: I82.402 Acute embolism and thrombosis of unspecified deep veins of left lower extremity (principal)

== ENCOUNTER 2019-07-11 09:49 | Outpatient (CLI) | payer OTHER ==
--- NOTE | 2019-07-11 10:34 | ULT ---
US Abdominal HISTORY: Abdominal pain. History of retroperitoneal hemorrhage. COMPARISON: 06/12/2019 CT of abdomen and pelvis. FINDINGS: Real-time imaging of the upper abdomen was performed. This shows a moderate right-sided ple ural effusion. The gallbladder is mildly distended. Small gallstones are noted. No gallbladder wall thickening. The common duct is 5 mm. Visualized liver parenchyma shows no focal findings. The spleen measures 10.6 cm. There is a small amount of fluid adjacent to the spleen. The pancreas is obscured. Abdominal aorta and IVC regions are also obscured. The right and left kidneys are normal in size and not obstructed. The retroperitoneal bleed is diffic ult to assess on ultrasound and if follow-up of this is desired a CT would be recommended. IMPRESSION: 1. Right-sided pleural effusion. There is also some mild ascites adjacent to the liver and spleen. 2. Mildly distended gallbladder with small gallstones and a normal caliber common duct. 3. Heterogeneous density adjacent to the right kidney probably related to the retroperitoneal hematom a difficult to assess on ultrasound.
[2019-07-11 12:35] LABS: PTT 25.9 SEC (22.9-36.1)
[2019-07-11 12:40] LABS: Bacteria/HPF None Seen HPF (None Seen); Bilirubin Negative (Negative); Blood, Urine Negative (Negative); Clarity Clear (Clear); Glucose, Urine (Dipstick) Normal (Negative); Leukocyte Negative Leu/uL (Negative); Nitrite Negative (Negative); Protein, Urine (Dipstick) 10 mg/dL (Neg-Trace); RBC/HPF 0-3 HPF (0-3); Squamous Epithelial None Seen HPF (0-3); WBC/HPF 0-3 HPF (0-3)
[2019-07-11 12:51] LABS: #Basophils 0.1 thou/uL (0.0-0.2); #Eosinphils 0.3 thou/uL (0.0-0.7); #Lymphocytes 2.1 thou/uL (1.20-3.40); #Monocytes 0.9 thou/uL (0.11-0.59); #Neutrophils 7.4 thou/uL (1.40-6.50); %Basophils 0.7 % (0.0-1.0); %Eosinophils 2.4 % (0.0-10.0); %Lymphocytes 19.7 % (21.0-51.0); %Monocytes 8.2 % (0.0-10.0); Hemoglobin 12.3 g/dL (14.0-18.0); Mean Corpuscular HGB CONC 36.1 g/dL (32.0-36.0); Mean Corpuscular Hemoglobin 33.7 pg (27.0-31.0); Mean Corpuscular Volume 93.4 fL (78.0-98.0); Mean Platelet Volume 6.9 fL (7.4-10.4); Platelet Count 473 thou/uL (130-400); RBC Distribution Width 15.1 % (11.5-14.5); Red Blood Cell (RBC) Count 3.64 mill/uL (4.70-6.10); White Blood Cell (WBC) Count 10.8 thou/uL (4.8-10.8)
[2019-07-11 12:56] LABS: ALT (SGPT) Less than 7 U/L (8-55); AST (SGOT) 19 U/L (5-34); Albumin 3.5 g/dL (3.5-5.0); Alkaline Phosphatase 92 U/L (40-110); Anion Gap 13 mmol/L (10-20); BUN (Urea Nitrogen) 13 mg/dL (8.4-25.7); Bilirubin, Total 0.9 mg/dL (0.2-1.2); Calc. Creatinine Clearance 0 mL/min (70-130); Calcium 8.6 mg/dL (7.8-10.44); Carbon Dioxide 30 mmol/L (22-29); Chloride 103 mmol/L (98-107); Estimated GFR-MDRD Greater than 90; Globulin 1.8 g/dL (2.4-3.5); Glucose 75 mg/dL (70-105); Potassium 4.5 mmol/L (3.5-5.1); Protein, Total 5.3 g/dL (6.0-8.3); Sodium 141 mmol/L (136-145)
[2019-07-14 12:40] LABS: CK (CPK) 115 U/L (30-200); Iron Binding Capacity, Total 248 mcg/dL (261-462)
== END 2019-07-11 09:50 | disposition home or self-care (01) ==
LOC: SCSULT 09:49
PROVIDERS: ATTEND Family Medicine
DX: R10.9 Unspecified abdominal pain (principal); K68.9 Other disorders of retroperitoneum; J90 Pleural effusion, not elsewhere classified; R18.8 Other ascites; K82.8 Other specified diseases of gallbladder; K80.80 Other cholelithiasis without obstruction; N28.89 Other specified disorders of kidney and ureter
CPT/HCPCS: 36415; 80053; 81001; 84443; 85025; 85610; 85730; 93975

== ENCOUNTER 2019-07-18 08:13 | Outpatient (CLI) | payer OTHER ==
[2019-07-18] MEDS ORDERED: Iopamidol-370 76% 500 ML 1 ML ONE (09:11)
--- NOTE | 2019-07-18 11:16 | CT ---
CT ABDOMEN AND PELVIS WITH IV CONTRAST: Date: 07/18/2019 PROVIDED CLINICAL HISTORY: Abdominal pain. FINDINGS: Comparison made with multiple prior examinations, the most recent of which is 06/12/2019. Partially visualized large right pleural effusion with adjacent subsegmental atelectasis is redemonst rated. Large retroperitoneal mass is redemonstrated, with interval increase in size, now measuring about 19. 9 x 19.5 cm in greatest transverse dimensions. This demonstrates inhomogeneously isodense attenuation to slightly hyperdense attenuation to skeletal muscle with interspersed foci of retroperitoneal fat. There is stranding of the retroperitoneal fat adjacent to this mass. There is conspicuous displaceme nt of the right kidney anteriorly. There is conspicuous enlargement of the right psoas muscle. This m ass is inseparable from the right kidney essentially circumferentially. The liver, spleen, pancreas, left kidney, and adrenal glands appear unremarkable. There is no bowel dilatation evident. There is mild-moderate free intraperitoneal fluid, which appear s simple in nature, increased with respect to prior study. Sigmoid colonic diverticulosis is demonstrated. Left hip arthroplasty changes are partially visualize d. The osseous structures demonstrate no concerning lytic or blastic lesions. IMPRESSION: 1. Persistent large right retroperitoneal mass as described. Given the lack of expected changes in H [place] units as would be seen in the setting of blood products, this is compatible with enhancing soft tissue mass and highly suspicious for malignancy. Lymphoma and retroperitoneal sarcoma could bot h be considered. Some component of hemorrhage involving this mass is possible. 2. Partially visualized right large pleural fluid. 3. Mild to moderate free intraperitoneal fluid. CODE T. POS: [facility]
== END 2019-07-18 08:14 | disposition home or self-care (01) ==
LOC: BICCT 08:13
PROVIDERS: ATTEND Family Medicine
DX: R58 Hemorrhage, not elsewhere classified (principal); K68.9 Other disorders of retroperitoneum
CPT/HCPCS: 74177

== ENCOUNTER 2019-07-19 07:27 | Inpatient (IN) | payer OTHER ==
[2019-07-19 08:09] LABS: #Eosinphils 0.2 thou/uL (0.0-0.7); #Lymphocytes 1.6 thou/uL (1.20-3.40); #Monocytes 0.6 thou/uL (0.11-0.59); #Neutrophils 6.8 thou/uL (1.40-6.50); %Basophils 0.4 % (0.0-1.0); %Eosinophils 2.1 % (0.0-10.0); %Lymphocytes 17.5 % (21.0-51.0); %Monocytes 6.9 % (0.0-10.0); %Neutrophils 73.1 % (42.0-75.0); Hemoglobin 12.8 g/dL (14.0-18.0); Mean Corpuscular Hemoglobin 35.3 pg (27.0-31.0); Mean Corpuscular Volume 92.8 fL (78.0-98.0); Mean Platelet Volume 6.8 fL (7.4-10.4); Platelet Count 457 thou/uL (130-400); RBC Distribution Width 14.7 % (11.5-14.5); Red Blood Cell (RBC) Count 3.63 mill/uL (4.70-6.10); White Blood Cell (WBC) Count 9.3 thou/uL (4.8-10.8)
[2019-07-19 08:17] LABS: ALT (SGPT) Less than 7 U/L (8-55); AST (SGOT) 20 U/L (5-34); Albumin 3.5 g/dL (3.5-5.0); Alkaline Phosphatase 93 U/L (40-110); Anion Gap 16 mmol/L (10-20); BUN (Urea Nitrogen) 13 mg/dL (8.4-25.7); Bilirubin, Total 1.1 mg/dL (0.2-1.2); Calc. Creatinine Clearance 0 mL/min (70-130); Calcium 8.8 mg/dL (7.8-10.44); Carbon Dioxide 26 mmol/L (22-29); Chloride 101 mmol/L (98-107); Estimated GFR-MDRD Greater than 90; Globulin 2.2 g/dL (2.4-3.5); Glucose 80 mg/dL (70-105); Lipase 6 U/L (8-78); Potassium 4.3 mmol/L (3.5-5.1); Protein, Total 5.7 g/dL (6.0-8.3); Sodium 139 mmol/L (136-145)
[2019-07-19] MEDS ORDERED: HYDROmorphone 0.5 MG/0.5 ML SYRINGE ONE ×2 (08:27→12:12)
[2019-07-19] MEDS ORDERED: Ondansetron PF 4 MG/2 ML Vial ONE (08:27)
--- NOTE | 2019-07-19 10:16 | PDOC.FPRHP ---
- History of Present Illness Chief Complaint: Intractable pain History of Present Illness: Mr. Guzman is a 54yoM with a known large retroperitoneal mass who presents for uncontrollable abdominal pain. He has been doing well up until the last few days and the pain has progressively worsened and became unbearable this morning. He describes the pain as throbbing and dull. He has also had increasing shortness of breath. Last Sunday (07/14) he had a RUQ US after he had been having crampy abdominal pain that was worse after meals which revealed small gallstones, without evidence of cholecystitis. Repeat CT scan was performed yesterday which revealed that the retroperitoneal mass has grown. Per family, prior imaging and consultation had resulted in a plan to follow up outpatient for biopsy. However , this has still yet to be performed. His , who is an ER nurse, noted his legs to be increasingly swollen in the last couple of days. She gave him a 1x dose of Lasix which did not help significantly. ED Course: 1g dilaudid x2, zofran - Allergies/Adverse Reactions Allergies Allergy/AdvReac Type Severity Reaction Status Date / Time cefoxitin sodium Allergy Severe Verified 07/19/19 14:09 [From Mefoxin] alcohol Allergy Verified 07/19/19 14:09 [From Mastisol Adhesive] ceftriaxone [From Rocephin] Allergy Verified 07/19/19 14:09 gum mastic Allergy Verified 07/19/19 14:09 [From Mastisol Adhesive] methyl salicylate Allergy Verified 07/19/19 14:09 [From Mastisol Adhesive] pantoprazole sodium Allergy Verified 07/19/19 14:09 [From Protonix] storax Allergy Verified 07/19/19 14:09 [From Mastisol Adhesive] Fywomrb-Rfm-Bss Reductase AdvReac Severe Verified 07/19/19 14:09 Inhibitor - Home Medications Medication Instructions Recorded Confirmed Type Ezetimibe [Zetia] 10 mg PO HS 01/21/15 07/19/19 History cloNIDine HCl 0.1 mg PO BID PRN 01/21/15 07/19/19 History Sertraline HCl 50 mg PO HS 05/11/18 07/19/19 History Zolpidem Tartrate 10 mg PO HS 05/11/18 07/19/19 History Carvedilol [Coreg] 6.25 mg PO HS 05/08/19 07/19/19 History Fexofenadine HCl [Meghna Allergy] 180 mg PO DAILY PRN 05/08/19 07/19/19 History Fluticasone Propionate [Flonase 2 spray EA NARE DAILY PRN 05/08/19 07/19/19 History Nasal [place]] Levothyroxine Sodium [Synthroid] 50 mcg PO HS 05/08/19 07/19/19 History QUEtiapine Fumarate [SEROquel] 300 mg PO HS 05/08/19 07/19/19 History Cyclobenzaprine [Flexeril] 10 mg PO HS 07/19/19 07/19/19 History HYDROcodone/Acetaminophen 1 each PO HS 07/19/19 07/19/19 History [Hydrocodone-Acetamin 10-325 mg] - History PMHx: frequent SBO, HTN, SAWYER requiring CPAP, polycythemia 2/2 testosterone injections, hypogonadism, T2 DM, recurrent pleural effusion, abdominal mass PSHx: gastric sleeve, SBO 1 year ago, L knee, L hip FHx: non-contributory Social: dips, no alcohol, drugs 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 denies: fever/chills , night sweats Eyes: denies: eye pain, vision changes ENT: denies: nasal congestion, rhinorrhea Respiratory: reports: cough, shortness of breath, exercise intolerance, other ( yellow sputum). denies: congestion Cardiovascular: reports: edema, paroxysmal nocturnal dyspnea, other (Sleeps on CPAP). denies: chest pain, palpitation, orthopnea Gastrointestinal: reports: constipation, abdominal pain. denies: nausea, vomiting, diarrhea, GI bleeding Genitourinary: reports: other (urinary frequency, darker urine). denies: dysuria, polyuria Skin: denies: rashes, lesions Musculoskeletal: reports: pain (calves tender), swelling. denies: tenderness, stiffness Neurological: reports: weakness, other (orthostatic light headedness). denies: numbness, syncope - Vital signs BP: 124/79, Pulse: 98, Resp: 16, Temp: 98.3 (Oral), Pain: 2, O2 sat: 95 on ( Room Air) - Physical Exam Constitutional: NAD, awake, alert and oriented HEENT: normocephalic and atraumatic, PERRLA, EOMI, conjunctiva clear, grossly normal vision, grossly normal hearing, MMM Neck: supple, trachea midline Chest: no-tender to palpation Heart: RRR, normal S1/S2, no murmurs/rubs/gallops, pulses present -Heart: 1+ pitting edema present in bilateral lower extremities Lungs: no respiratory distress, good air movement -Lungs: Diminished breath sounds on the right, less audible in the base. CTA on left Abdomen: soft, non-tender, bowel sounds present -Abdomen: Firm, distended. Palpable liver. Musculoskeletal: normal tone, ROM grossly normal -Musculoskeletal: Appears to have muscle wasting Neurological: no focal deficit, CN II-XII intact Skin: no rash/lesions, good turgor Heme/Lymphatic: no unusual bruising or bleeding, no purpura Psychiatric: normal mood and affect, good judgment and insight, intact recent and remote memory FMR H&P: Results - Labs Result Diagrams: 07/19/19 07:42 07/19/19 07:42 Lab results: WBC 9.3 thou/uL (4.8-10.8) 07/19/19 07:42 Hgb 12.8 g/dL (14.0-18.0) L 07/19/19 07:42 Hct 33.7 % (42.0-52.0) L 07/19/19 07:42 MCV 92.8 fL (78.0-98.0) 07/19/19 07:42 Plt Count 457 thou/uL (130-400) H 07/19/19 07:42 Neutrophils % 73.1 % (42.0-75.0) 07/19/19 07:42 Sodium 139 mmol/L (136-145) 07/19/19 07:42 Potassium 4.3 mmol/L (3.5-5.1) 07/19/19 07:42 Chloride 101 mmol/L (98-107) 07/19/19 07:42 Carbon Dioxide 26 mmol/L (22-29) 07/19/19 07:42 BUN 13 mg/dL (8.4-25.7) 07/19/19 07:42 Creatinine 0.83 mg/dL (0.7-1.3) 07/19/19 07:42 Glucose 80 mg/dL (70-105) 07/19/19 07:42 Calcium 8.8 mg/dL (7.8-10.44) 07/19/19 07:42 Total Bilirubin 1.1 mg/dL (0.2-1.2) 07/19/19 07:42 AST 20 U/L (5-34) 07/19/19 07:42 ALT Less than 7 U/L (8-55) L 07/19/19 07:42 Alkaline Phosphatase 93 U/L (40-110) 07/19/19 07:42 B-Natriuretic Peptide Less than 10.0 pg/mL (0-100) 07/19/19 07:42 Serum Total Protein 5.7 g/dL (6.0-8.3) L 07/19/19 07:42 Albumin 3.5 g/dL (3.5-5.0) 07/19/19 07:42 Lipase 6 U/L (8-78) L 07/19/19 07:42 - Radiology Interpretation Chest x-ray Status: report reviewed by me (L right pleural effusion w/ atelectasis) FMR H&P: A/P - Problem List (1) Retroperitoneal mass Current Visit: Yes Status: Acute Code(s): R19.00 - INTRA-ABD AND PELVIC SWELLING, MASS AND LUMP, UNSP SITE (2) Acquired polycythemia Current Visit: No Status: Acute Code(s): D75.1 - SECONDARY POLYCYTHEMIA (3) Hypogonadotropic hypogonadism Current Visit: No Status: Acute (4) SAWYER (obstructive sleep apnea) Current Visit: No Status: Acute Code(s): G47.33 - OBSTRUCTIVE SLEEP APNEA ( ADULT) (PEDIATRIC) (5) SBO (small bowel obstruction) Current Visit: No Status: Acute Code(s): K56.609 - UNSP INTESTNL OBST, UNSP TO PARTIAL VERSUS COMPLETE OBST (6) HTN (hypertension) Current Visit: No Status: Chronic Code(s): I10 - ESSENTIAL (PRIMARY) HYPERTENSION - Plan Intractable pain - likely secondary to the large retroperitoneal mass causing mass effect within his abdomen. - Will manage pain with opioids, morphine, in the short term and work toward a supervisor lathing solution. Retroperitoneal mass - CT in June showed mass was ~[id number]. CT yesterday measures ~43x97bo. - Urology, Dr. Ackerman, consulted for workup. - Patient likely needs biopsy for tissue diagnosis to develop plan going forward. - Patient is NPO in case procedure is planned for AM. Will wait for recommendations. R large pleural effusion, recurrent - Last tapped 06/13/19 w/ Dr. Charles. - Consult Dr. Kinney for management. Bilateral lower extremity edema - No known history of heart failure. - likely 2/2 retroperitoneal mass effect on vasculature. - Will monitor I/o Cholelithiasis - RUQ US earlier this week showed small gall stones without evidence of cholelithiasis. Type II DM - will continue home medications, per last H&P he was on Metformin. Will clarify tomorrow. SAWYER - will order CPAP qHS. HTN - Will continue home medications Insomnia - Will continue home medications Hypothyroidism - Will continue home medications Disposition/LOS: Dispo: Stable Code: Full VTE PPX: Lovenox FMR H&P: Upper Level - Pertinent history 54yo M with pmh of R perirenal mass and R sided pleural effusion presents to ER with intractible abdominal pain. Pain is somewhat diffuse but centeres at times in RLQ and R flank. It is throbbing in nature, onset was weeks ago but worsened over the last few days. Notably pt was hospitalized in June with SBO, CT imaging of his R perirenal mass showed a size of 45d29la it has now grown to 19x19. - Pertinent findings Vitals: tachycardia GEN: acute distress PULM: decreased lung sounds R lung CARD: tachycardia, regular rhythm, no murmur GI: distended, bilat mild lower quad pain, no rebound tenderness, negative [place], negative fluid wave RUQ 07/11 shows small gallstones but no evidence of cholecystitis CTabd: R perirenal mass, increased in size from June 2019 - Plan Date/Time: 07/19/19 1016 I, Koko Mcdonnell PGY2, have evaluated this patient and agree with findings/ plan as outlined by [facility] internship resident. Pertinent changes/additions are listed here. Intractible pain A- likely 2/2 mass. pain controlled by dilauded in the ER P- will start comprable dosing of morphine prn with low threshold to switch back to dilauded Perinephric Mass A- this has increased in size since imaging 1month ago. pt had plans for outpt workup including possible CT guided biopsy with Dr. Guerrero and Lois vs. serial imaging. Considering the nature of this admit expedited workup is appropriate. P- consult urology R pleural effusion A- stable from pulmonary standpoint so far but worse from 1 month ago, thoracentesis done then showed exudative fluid and pt reports no path showing no evidence of malignancy. Pt has SOB but is not in respiratory distress. decreased lung sounds on R P- consult pulm for thoracentesis cholelithiasis A- US from 07/11 shows small gall stones, no signs for cholecystitis. At this point not concerned for cholecystitis P- will monitor symptoms. Bilat LE edema A- possibly 2/2 mass effect compression of IVC. Pt has BNP which is wnl P- will monitor I/Os and vitals DM - continued rhina meds HTN - continued home meds HLD - continued home meds SAWYER - requires cpap at home Anx/Dep - continued home meds, will add atarax prn Hypothyroid - continued home meds CODE: FULL Diet: npo dipso: obs Addendum - Attending - Attending Attestation Date/Time: 07/20/19 0806 I personally evaluated the patient and discussed the management with Dr. Frazier. I agree with the History, Examination, Assessment and Plan documented above with any addition or exceptions noted below. Pain controlled with dilaudid. Likely need repeat thora. They would like a second opinion from uro. Plan for CT guided biopsy.
--- NOTE | 2019-07-19 11:01 | RAD ---
PORTABLE CHEST: HISTORY: Dyspnea. COMPARISON: 06-14 and 06-23-2019 exams. FINDINGS: Heart size within normal limits. Increasing size with now a large right pleural effusion with associ ated parenchymal change, probably atelectasis. IMPRESSION: Large right pleural effusion with associated atelectasis. POS: [facility]
[2019-07-19] MEDS ORDERED: Calcium Carbonate 500 MG ChewTAB PO PRN (11:05)
[2019-07-19] MEDS ORDERED: Ondansetron ODT 4 MG TAB PO PRN (11:05)
[2019-07-19] MEDS ORDERED: Senokot S 8.6-50 MG TAB PO PRN (11:05)
[2019-07-19] MEDS ORDERED: Guaifenesin DM 100-10/5 ML UDCUP PO PRN (11:05)
[2019-07-19 12:19] LABS: Bilirubin Negative (Negative); Blood, Urine Negative (Negative); Clarity Clear (Clear); Glucose, Urine (Dipstick) Normal (Negative); Leukocyte Negative Leu/uL (Negative); Nitrite Negative (Negative); Protein, Urine (Dipstick) 20 mg/dL (Neg-Trace)
[2019-07-19] MEDS ORDERED: Lactated Ringer's 1,000 ML IV SCH (14:00)
[2019-07-19 14:17] LABS: RBC Count-Automated (BF) 864 /cumm; WBC/Nucleated-Auto (BF) 821 uL
[2019-07-19] MEDS: Morphine 2 MG/ML SYRINGE SLOW IVP PRN (14:28)
--- NOTE | 2019-07-19 14:28 | RAD ---
PORTABLE CHEST: HISTORY: Post thoracentesis. COMPARISON: Earlier exam of the same day. FINDINGS: There has been a significant reduction of the right-sided pleural effusion. The right hemidiaphragm appears elevated, although this could conceivably still be related to some subpulmonic fluid. No pne umothorax is identified. Atelectatic changes are seen in the right base. IMPRESSION: Post right-sided thoracentesis. No signs of pneumothorax. POS: [facility]
[2019-07-19 14:29] LABS: Pleural Fluid, Protein 3.7 g/dL
[2019-07-19 14:42] LABS: BF Color Yellow; Body Fluid Source Pleural Fluid; Clarity Cloudy/Turbid (Clear); Tube # 3
[2019-07-19 14:45] LABS: BF Segmented Neutrophils 18 %; Cell Count Non Hematic 31 %; Lymphocytes 51 %
[2019-07-19 15:20] LABS: Fluid, pH - Pleural Fld Greater than 7.50 (7.60 - 7.66)
[2019-07-19] MEDS: Morphine 4 MG/ML VIAL SLOW IVP PRN ×2 (15:50→20:08)
[2019-07-19] MEDS: Lactated Ringer's 1,000 ML IV SCH (15:51)
[2019-07-19] MEDS ORDERED: Polyethylene Glycol 3350 17 GM Packet PO PRN (20:21)
[2019-07-19] MEDS ORDERED: Senokot 8.6 MG TAB PO PRN (20:21)
[2019-07-19] MEDS: Benzonatate 100 MG CAP PO PRN (20:56)
[2019-07-19] MEDS ORDERED: Zolpidem Tartrate 5 MG TAB PO SCH (21:00)
[2019-07-20] MEDS: Lactated Ringer's 1,000 ML IV SCH ×3 (00:09→20:35)
[2019-07-20] MEDS: Morphine 4 MG/ML VIAL SLOW IVP PRN ×2 (00:10→04:52)
[2019-07-20] MEDS: HYDROmorphone 2 MG TAB PO PRN ×2 (03:24→09:04)
--- NOTE | 2019-07-20 05:18 | PDOC.FM ---
- Subjective Subjective: Mr. Guzman was in a lot of pain this morning when I saw him. He was groaning and unable to lie still. His inquired about potentially consulting anesthesia. He also uses decongestants at night before using his CPAP. Per the family, the discussion that they had with Dr. Ackerman yesterday involved planning for biopsy on Sunday if he does not get transferred to [facility]. - Objective MAR Reviewed: Yes Vital Signs & Weight: Vital Signs (12 hours) Temp Pulse Resp BP Pulse Ox 07/20/19 03:30 97.9 F 108 H 20 129/87 92 L 07/20/19 00:00 98 F 105 H 20 106/67 93 L 07/19/19 20:00 92 L 07/19/19 19:07 92 L 07/19/19 19:00 98.8 F 117 H 20 116/70 94 L Weight Weight 119.204 kg Result Diagrams: 07/19/19 07:42 07/19/19 07:42 Phys Exam - Physical Examination Constitutional: NAD HEENT: moist MMs, sclera anicteric Neck: supple, full ROM Respiratory: no wheezing, no rales, no rhonchi, clear to auscultation bilateral Cardiovascular: RRR, no significant murmur, no rub Gastrointestinal: soft, non-tender Distended Musculoskeletal: edema present 1+ pitting edema bilaterally Neurological: non-focal, moves all 4 limbs Psychiatric: normal affect Deviation from normal: Alert, however slightly confused after recent pain medication. Skin: no rash, normal turgor Dx/Plan (1) Retroperitoneal mass Code(s): R19.00 - INTRA-ABD AND PELVIC SWELLING, MASS AND LUMP, UNSP SITE Status: Acute (2) Acquired polycythemia Code(s): D75.1 - SECONDARY POLYCYTHEMIA Status: Acute (3) Hypogonadotropic hypogonadism Status: Acute (4) SAWYER (obstructive sleep apnea) Code(s): G47.33 - OBSTRUCTIVE SLEEP APNEA (ADULT) (PEDIATRIC) Status: Acute (5) SBO (small bowel obstruction) Code(s): K56.609 - UNSP INTESTNL OBST, UNSP TO PARTIAL VERSUS COMPLETE OBST Status: Acute (6) HTN (hypertension) Code(s): I10 - ESSENTIAL (PRIMARY) HYPERTENSION Status: Chronic - Plan Plan: Intractable pain - likely secondary to the large retroperitoneal mass causing mass effect within his abdomen. - Currently on Morphine and Dilaudid for pain management. - Will discuss consulting anesthesia this morning for pain control. Retroperitoneal mass - Urology, Dr. Ackerman, consulted for workup. - Plan of for CT guided biopsy 07/21 and possible transfer to [facility]. R large pleural effusion, recurrent, resolved - Consulted Dr. Kinney. S/p thoracentesis. Bilateral lower extremity edema - No known history of heart failure. - likely 2/2 retroperitoneal mass effect on vasculature. - Will monitor I/o Cholelithiasis - RUQ US earlier this week showed small gall stones without evidence of cholelithiasis. Type II DM, diet controlled - No longer taking medications SAWYER - will order CPAP qHS. HTN - Will continue home medications Insomnia - Will continue home medications Hypothyroidism - Will continue home medications Disposition/LOS: Dispo: Stable Code: Full VTE PPX: Lovenox Addendum - Attending - Attending Attestation Date/Time: 07/20/19 0389 I personally evaluated the patient and discussed the management with the team. I agree with the History, Examination, Assessment and Plan documented above with any addition or exceptions noted below. Anesthesia for [employer] because still quite uncomfortable. Pulm following. Uro rec' d CT guided biopsy and I believes wants to transfer him before vs after results.
[2019-07-20 06:13] LABS: INR-International Normal Ratio 1.1; Prothrombin Time 14.3 SEC (12.0-14.7)
[2019-07-20] MEDS: Morphine 2 MG/ML SYRINGE SLOW IVP PRN ×2 (07:11→11:09)
[2019-07-20] MEDS ORDERED: Oxymetazoline HCl 0.05% (30 ML BOT) NS PRN (07:28)
[2019-07-20] MEDS ORDERED: cloNIDine 0.1 MG TAB PO PRN (07:46)
[2019-07-20] MEDS ORDERED: FLU VACC QS2019-20(6MOS UP)/PF 60 MCG/0.5 ML SYRINGE IM ONE (09:00)
[2019-07-20] MEDS ORDERED: Enoxaparin Sodium 40 MG/0.4 ML SYRINGE SC SCH (09:00)
[2019-07-20] MEDS: Benzonatate 100 MG CAP PO PRN (09:06)
[2019-07-20] MEDS: Senokot S 8.6-50 MG TAB PO SCH ×2 (09:06→20:40)
[2019-07-20] MEDS: Loratadine 10 MG TAB PO SCH (10:24)
[2019-07-20] MEDS ORDERED: diphenhydrAMINE 50 MG/ML VIAL IVP PRN (10:37)
[2019-07-20] MEDS ORDERED: Naloxone HCl 0.4 mg/ml Vial IV PRN (10:37)
[2019-07-20] MEDS ORDERED: Promethazine HCl 25 MG/ML VIAL IM PRN (10:37)
[2019-07-20] MEDS ORDERED: diphenhydrAMINE 50 MG/ML VIAL IM PRN (10:37)
[2019-07-20] MEDS ORDERED: Communication Order-Pharmacy FS SCH (10:45)
[2019-07-20] MEDS: HYDROmorphone 10 mg/100 ml CADD IVPB PRN (12:00)
--- NOTE | 2019-07-20 13:04 | PRG ---
DATE OF SERVICE: 07/20/2019 SUBJECTIVE: This morning, he is better, less short of breath. OBJECTIVE: VITAL SIGNS: Temperature 98, pulse 116, saturations are 96% on room air, blood pressure 120/84. CHEST: Decreased breath sounds. No wheezing. CARDIAC: Normal S1, S2. No gallops. ABDOMEN: Soft. Distended. ASSESSMENT: 1. Right pleural effusion, status post thoracentesis, exudate may be chylous. 2. Abdominal mass, rule out lymphoma. PLAN: He is scheduled for a CT-guided biopsy tomorrow. Pulmonary will follow. Job ID: [id number]
--- NOTE | 2019-07-20 14:46 | PRG ---
DATE OF SERVICE: 07/20/2019 REASON FOR CONSULTATION: 1. Right-sided retroperitoneal mass. 2. Intractable pain. BRIEF HISTORY: Mr. 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 He underwent imaging evaluation, which suggested a retroperitoneal bleed and due to this, was placed on observation in hopes of resolution of the retroperitoneal hematoma. The patient has had more or less continuous pain symptoms since the fall with intermittent exacerbation of the symptoms. He is presenting back to the hospital at this point with intractable flank pain symptoms, was originally scheduled for a needle biopsy of the retroperitoneal mass on Sunday at the [facility] and is now presenting for a pain needs. Overnight, he has been managed with p.r.n. narcotics, which he thinks is not adequately covering his needs and will be switched to a pain control pump today. The patient is otherwise doing well. He notices some increasing distention in the right flank area. PHYSICAL EXAMINATION: VITAL SIGNS: Temperature remains afebrile at 98.5, pulse is 104, respirations 16, and O2 saturation on room air is 94%, little bit improved from yesterday. Blood pressure is 117/77. HEAD, EYES, EARS, NOSE, AND THROAT: Extraocular movements are intact. Sclerae anicteric. Oropharynx is clear. NECK: Supple. LUNGS: Clear bilaterally with some decreased left-sided breath sounds, especially lower in the chest. ABDOMEN: Distended in appearance. He reports positive flatus. Percussion of the abdomen reveals increased resonance in the left side for approximately at the midline and dullness to percussion on the right. Abdomen is distended and the patient has received a Lovenox injection today. GENITOURINARY: Not examined today, although examined completely yesterday. EXTREMITIES: There is no significant differential between the right or left lower extremity as far as the edema goes and there were no actual edema present. INTERVAL STUDIES AND LABORATORY: The patient has not had hematologic profile today and no electrolytes were drawn today either. ASSESSMENT AND PLAN: Retroperitoneal mass. Although, there is relatively large differential including a large number of rare tumors, the primary concerns here would be for a sarcoma, possibly arising from the patient's psoas muscle or a lymphoma. The patient should undergo a CT-guided needle biopsy of the retroperitoneal mass for diagnosis purposes. Discussed with the family, in addition consulting Oncology, as Oncology will need to be involved in his care long-term. I did previously discuss with the family that if this is a sarcoma, would need resection at a tertiary referral center and [facility] would probably be the better local or nearly local facility to have this done at. Given that this probably would require a combination of Vascular Surgery and Urology with suitable depth in assistance to perform a retroperitoneal tumor resection. The patient's family expresses understanding with regarding that. I did discuss that Dr. Abreu will be available back on service on Sunday as well for the patient's care. The patient will need to undergo biopsy tomorrow and hopefully, we can discern whether this is a lymphoma or sarcoma from the retroperitoneal biopsy. TIME SPENT: Over 35 minutes of consultation assessment time was spent in evaluation of the patient. Job ID: [id number]
--- NOTE | 2019-07-20 15:55 | CON ---
DATE OF CONSULTATION: 07/19/2019 REASON FOR CONSULTATION: 1. Right-sided retroperitoneal mass progressively increasing in size. 2. Intractable abdominal pain. 3. Right pleural effusion. HISTORY OF PRESENT ILLNESS: Mr. 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 several times since April of 2019 due to a progressively increasing right-sided retroperitoneal mass, which displaces the right kidney and the liver anteriorly and medially. The patient reports on this admission he is having again intractable pain symptoms in the abdomen. The patient and the family are fairly frustrated with his progress so far as he does not have an actual diagnosis or treatment plan for his retroperitoneal mass. The patient has been previously evaluated by my colleague, Dr. Darren Abreu, who evaluated him initially when the patient presented following a fall on a job site. The patient at that time appeared to have a retroperitoneal bleed and was managed expectantly. Over the ensuing time, the patient has developed a retroperitoneal mass like appearance and was scheduled for CT-guided biopsy at the direction of Dr. Abreu for next Sunday at the [facility]. The patient presents to the Emergency Department with intractable pain symptoms and desires intervention for his pain, pleural effusion, and the retroperitoneal mass. REVIEW OF SYSTEMS: The patient reports his pain symptoms are in his chest associated with a pleural effusion and in the abdomen. He has had more or less normal bowel function, but reports right lower quadrant and right back pain symptoms which radiate to the right anterior abdomen. ALLERGIES: THE PATIENT HAS ALLERGIES TO CEFOXITIN AND CEFTRIAXONE. HE HAS LISTED ALLERGIES IN ADDITION TO MASTISOL AND INCORPORATED COMPONENTS. OUTPATIENT MEDICATIONS: Include the followin. Clonidine 0.1 mg p.o. b.i.d. p.r.n. 2. Zetia 10 mg p.o. at bedtime. 3. Zolpidem 10 mg p.o. at bedtime. 4. Sertraline 100 mg p.o. at bedtime. 5. Flonase 2 sprays to each nares daily. 6. Meghna Allergy 180 mg p.o. daily p.r.n. 7. Levothyroxine 100 mcg p.o. at bedtime. 8. Seroquel 300 mg p.o. at bedtime. 9. Carvedilol 6.25 mg p.o. at bedtime. 10. Metformin 500 mg p.o. b.i.d. PAST MEDICAL HISTORY: 1. Diabetes mellitus, type 2. 2. Hypertension. 3. Seasonal allergies. 4. Hypothyroidism. GENITOURINARY HISTORY: Negative. PAST SURGICAL HISTORY: 1. Small bowel obstruction, on one occasion an operation and on another occasion a simple observation. 2. Retroperitoneal mass, currently under observation. 3. The patient previously had a gastric sleeve operation as well. 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 He is to an ER nurse and has a daughter, who is a manager finance. The patient has no current smoking history, but does dip oral tobacco. He does not have current alcohol consumption. FAMILY MEDICAL HISTORY: Noncontributory. PHYSICAL EXAMINATION: VITAL SIGNS: Temperature is 98.5, pulse is 106, respirations 17, O2 saturation 92% on room air, and blood pressure 148/90. GENERAL: This is a pleasant, awake, alert, heavyset white male, in no apparent distress. Does report abdominal pain as described above. HEAD, EYES, EARS, NOSE, AND THROAT: Extraocular movements are intact. Sclerae are anicteric. Oropharynx is clear. NECK: Supple. LUNGS: Clear to auscultation bilaterally. CARDIAC: Regular rate and rhythm. Auscultation finds minimally decreased breath sounds, right posterior. ABDOMEN: Soft, obese, and nontender. Percussion reveals increased resonance in all four quadrants. There is a midline surgical incisional scar, which appears to have been accessed possibly twice based on the healing pattern. The patient reportedly had a gastric sleeve operation and has also had a small bowel obstruction managed surgically once in the past. GENITOURINARY: Phallus is circumcised and is without lesion. Urethral meatus appears adequate. Scrotum is benign. There are no varices present grossly. Testes are moderately atrophic secondary to known testosterone replacement therapy. Digital rectal examination finds moderately enlarged prostate gland about 45 g, is a rubbery and muscular characteristic to it bilaterally with no sinister features. There are no palpable retroperitoneal masses in the pelvis itself. There is no evidence of blood on digital rectal examination. EXTREMITIES: There is some dilation of the patient's lower extremities consistent with a degree of edema, but this is nonpitting. There is some normal swelling of the right lower extremity secondary to a past total knee operation. The patient did have an operation apparently also on the left knee, though not a knee replacement. There are no cords or other abnormalities to suggest a DVT in lower extremities. LABORATORY STUDIES: The patient's current hemoglobin is 12.8 with a hematocrit of 33.7 down from the previously noted polycythemic state in April, suggesting some decrease in blood production. The patient does report he is continuing on testosterone, so it is not a testosterone decrease causing this. Platelet count is 457,000. There is 73% neutrophils, which is normal. There are 1% bands, which is in the low range. Lymphocytes in total are low as well. There is a moderate monocytosis at 12%. Neutrophil ANC is elevated at 6.8 and monocytes also elevated at 0.6 per microliter. Electrolytes appear largely within normal limits with current blood urea nitrogen of 13 and creatinine of 0.83. The patient's last PSA available in the [facility] was 4.84 on 04/10/2016. RADIOLOGIC STUDIES: I reviewed the patient's CT scan of the abdomen and pelvis today, this shows a diffusely infiltrative process with no significant evidence of an acute bleed. This appears to invade the patient's psoas muscle, which is somewhat dilated. The retroperitoneal mass displaces the patient's bowel and colon anteriorly as well as the kidney. At a higher level, the patient's liver can be seen to be displaced moderately across the midline. The patient's gallbladder is dilated. The spleen appears normal in appearance. The retroperitoneal process appears to fully surround the patient's kidney, but not originate from it. There is no evidence of origination from the patient's adrenal gland either. This does not appear to arise from the vascular structures of the retroperitoneum. The mass fully infiltrates the large portions of the retroperitoneal space including the psoas muscle itself. This has relatively bland uptake of contrast relative to the uptake of contrast through the kidney. Is indistinguishable intensity from general musculature. ASSESSMENT AND PLAN: 1. Retroperitoneal mass. This needs to undergo a biopsy for a formal decision as far as treatment plan for the patient. Possibilities here would be a lymphoma, which would be suggested by the decreasing blood formation for this patient relative to his April labs, which would suggest a lymphoma. If the patient has lymphoma, this could certainly be treated by the Oncology Service here. If this turns out to be a sarcoma, the patient probably be best evaluated and treated at a facility such as [facility] in [place] because this would be a relatively rare retroperitoneal sarcoma that occurs in relatively low numbers of patients on the order of one in 200,000 and possibly originates from the patient's psoas muscle from my evaluation of films. It is impossible to distinguish between the various possibilities without obtaining a biopsy. a. I reviewed the films and came to these conclusions and additional addendum to this note. I did discuss the patient's case management, long-term radiologic imaging study series with the patient's primary urologist, Dr. Abreu. He is fully in agreement with my assessment of the patient and we independently came at the same conclusions in this patient. At the present time, I would recommend making the patient n.p.o. after midnight on Sunday for planned CT guided biopsy of the retroperitoneal mass. If this appears to be a lymphoma, formal Oncology consultation should be obtained for chemotherapy. If this turns out to be a sarcoma, I would recommend referral to [facility] in [place]. 2. Pain control. The patient seems to be making adequate progress on the current pain management plan. 3. Pleural effusion. This is most likely reactive based on previous cytology obtained, which had no cancer cells of any sort in it and likely the same findings will be observed today. The patient did undergo a thoracentesis prior to my evaluation of him. At time of my evaluation of this patient, he appeared to be breathing without difficulty and I did not note any abnormality associated with his thoracentesis procedure. TIME SPENT: Over 70 minutes of initial evaluation consultation and assessment time was spent in evaluation of this patient today. Job ID: [id number]
[2019-07-20] MEDS: Levothyroxine Sodium 50 MCG TAB PO SCH (20:38)
[2019-07-20] MEDS: Cyclobenzaprine 10 MG TAB PO SCH (20:39)
[2019-07-20] MEDS: Ezetimibe 10 MG TAB PO SCH (20:39)
[2019-07-20] MEDS: Carvedilol 6.25 MG TAB PO SCH (20:40)
[2019-07-21 05:38] LABS: INR-International Normal Ratio 1.1; PTT 27.6 SEC (22.9-36.1); Prothrombin Time 13.7 SEC (12.0-14.7)
--- NOTE | 2019-07-21 05:46 | PDOC.FM ---
- Subjective Subjective: Pt's pain is modestly controlled with IV pain medications. Pain woke him through sleep. He and family wish to be transferred to [facility]. - Objective Vital Signs & Weight: Vital Signs (12 hours) Temp Pulse Resp BP BP Pulse Ox 07/21/19 04:00 98.2 F 98 20 125/80 94 L 07/21/19 00:00 98.7 F 96 20 143/85 H 94 L 07/20/19 20:40 143/83 H 07/20/19 20:00 98.8 F 105 H 20 143/83 H 93 L Weight Weight 119.204 kg I&O: 07/19/19 07/20/19 07/21/19 06:59 06:59 06:59 Intake Total 1770 Balance 1770 Result Diagrams: 07/21/19 04:57 07/21/19 10:17 Phys Exam - Physical Examination Constitutional: NAD Respiratory: no wheezing, no rales, clear to auscultation bilateral Cardiovascular: RRR, no significant murmur Gastrointestinal: positive bowel sounds Mildly tender on R side, abdomen softer L>R, mild distention, no rebound Musculoskeletal: pulses present trace edema Dx/Plan (1) Pleural effusion Code(s): J90 - PLEURAL EFFUSION, NOT ELSEWHERE CLASSIFIED Status: Acute (2) Retroperitoneal mass Code(s): R19.00 - INTRA-ABD AND PELVIC SWELLING, MASS AND LUMP, UNSP SITE Status: Acute (3) Acquired polycythemia Code(s): D75.1 - SECONDARY POLYCYTHEMIA Status: Acute (4) Borderline diabetes mellitus Code(s): R73.03 - PREDIABETES Status: Acute (5) HLD (hyperlipidemia) Code(s): E78.5 - HYPERLIPIDEMIA, UNSPECIFIED Status: Chronic (6) HTN (hypertension) Code(s): I10 - ESSENTIAL (PRIMARY) HYPERTENSION Status: Chronic - Plan Plan: Intractable pain - likely secondary to the large retroperitoneal mass causing mass effect within his abdomen. - Currently on Morphine and Dilaudid for pain management. - Consulted anesthesia for pain control. Retroperitoneal mass - Urology, Dr. Ackerman, consulted for workup. Dr. Sunshine will take over pt care this morning 07/21. - Plan of for CT guided biopsy 07/21 and possible transfer to [facility]. Family prefers transfer. R large pleural effusion, recurrent, resolved - Consulted Dr. Kinney. S/p thoracentesis. Possible chylous. Bilateral lower extremity edema - No known history of heart failure. - likely 2/2 retroperitoneal mass effect on vasculature. - Will monitor I/o Cholelithiasis - RUQ US earlier this week showed small gall stones without evidence of cholelithiasis. Type II DM, diet controlled - No longer taking medications SAWYER - will order CPAP qHS. HTN - Will continue home medications Insomnia - Will continue home medications Hypothyroidism - Will continue home medications Disposition/LOS: Dispo: Stable Code: Full VTE PPX: Lovenox Addendum - Attending - Attending Attestation Date/Time: 07/21/19 8650 I personally evaluated the patient and discussed the management with Dr. Mcintosh. I agree with the History, Examination, Assessment and Plan documented above with any addition or exceptions noted below. patient to undergo CT guided biopsy of retroperitoneal mass today. Patient's family expressed desire to be transferred to [facility]. I explained to them that we will need a tissue diagnosis from the CT biopsy before we could discuss transfer. I also explained potential obstacles including insurance approval for the transfer and acceptance by [facility] for treatment. They expressed understanding and all questions were answered regarding the evaluation of his mass. patient also began experience urinary retention this morning with a 500 mL PVR that required a straight cath to relieve. this is likely a sequela of the mass. If it occurs again, will place a marcial catheter.
[2019-07-21 06:13] LABS: Band 2 % (5-11); Hemoglobin 12.6 g/dL (14.0-18.0); Lymphocytes 9 % (21-51); Mean Corpuscular Hemoglobin 42.8 pg (27.0-31.0); Mean Corpuscular Volume 93.4 fL (78.0-98.0); Mean Platelet Volume 6.7 fL (7.4-10.4); Monocytes 8 % (0-10); Platelet Count 399 thou/uL (130-400); RBC Distribution Width 15.2 % (11.5-14.5); Red Blood Cell (RBC) Count 2.94 mill/uL (4.70-6.10)
[2019-07-21] MEDS: Lactated Ringer's 1,000 ML IV SCH ×4 (06:13→21:03)
[2019-07-21 06:14] LABS: Mean Corpuscular HGB CONC 45.8 g/dL (32.0-36.0); Platelet Morphology Comment Appears Adequate; RBC Morphology Normal
[2019-07-21] MEDS: HYDROmorphone 10 mg/100 ml CADD IVPB PRN (07:08)
[2019-07-21] MEDS: Senokot S 8.6-50 MG TAB PO SCH ×2 (07:57→20:56)
[2019-07-21] MEDS: Loratadine 10 MG TAB PO SCH (07:57)
--- NOTE | 2019-07-21 08:54 | CON ---
DATE OF CONSULTATION: HISTORY OF PRESENT ILLNESS: Carmelo Guzman is a 54-year-old pleasant obese gentleman, who has a complicated medical history, who presented to the ER with severe abdominal pain. Survey at the first of the year, he fell at work and was found to have retroperitoneal hemorrhage. This got worse and apparently there was some kind of a mass, which had grown. Biopsy was to be continued. He then developed pleural effusion and shortness of breath for which a thoracentesis was done, which was an exudate, but cultures were all negative. He then saw Dr. Wolf in office about a month ago. He is back here with both shortness of breath and abdominal pain. I reviewed his CT chest, x-ray abdomen, is not a large volume of fluid, but he said that he wants it to be drained since he is short of breath at nighttime. PAST MEDICAL HISTORY: Pertinent for otherwise sleep apnea, diabetes, polycythemia, and hypertension. PAST SURGICAL HISTORY: Left knee, left hip, lumbar surgery, gastric sleeve, exploratory laparotomy, small bowel. SOCIAL HISTORY: Tobacco, none. Alcohol, none. HOME MEDICATIONS: 1. Glucophage 500 twice a day. 2. Catapres p.r.n. 3. Zoloft 100. 4. Seroquel 300. 5. Synthroid 100. 6. Meghna. 7. Zetia. 8. Coreg 6.25. ALLERGIES: MEFOXIN, STATINS. REVIEW OF SYSTEMS: Otherwise, 10-point negative. PHYSICAL EXAMINATION: VITAL SIGNS: Temperature 98, pulse , respirations 16, saturations 96% on room air, and blood pressure 130/70. CHEST: Decreased breath sounds in right lung, left unremarkable. CARDIAC: Normal S1 and S2. No gallops. ABDOMEN: Massive, distended, soft. LABORATORY DATA: Unremarkable. Platelet count is 457, white count normal. Lytes are normal. Renal function normal. ASSESSMENT: 1. Right recurrent pleural effusion, symptomatic. 2. Retroperitoneal hemorrhage. 3. Retroperitoneal mass suspicious for sarcoma or lymphoma. 4. Diabetes. 5. Morbid obesity. 6. Sleep apnea. PLAN: A thoracentesis will be performed. Otherwise, regarding his abdominal mass, further workup as per Surgery. Consultation note, 70 minutes, 50% direct patient care, exclusive of the thoracentesis. Job ID: [id number]
[2019-07-21 10:57] LABS: Anion Gap 14 mmol/L (10-20); BUN (Urea Nitrogen) 9 mg/dL (8.4-25.7); Calc. Creatinine Clearance 185 mL/min (70-130); Calcium 8.5 mg/dL (7.8-10.44); Carbon Dioxide 30 mmol/L (22-29); Chloride 100 mmol/L (98-107); Estimated GFR-MDRD Greater than 90; Glucose 82 mg/dL (70-105); Potassium 3.9 mmol/L (3.5-5.1); Sodium 140 mmol/L (136-145)
--- NOTE | 2019-07-21 11:34 | OP ---
DATE OF PROCEDURE: 07/19/2019 PROCEDURE PERFORMED: Thoracentesis. INDICATIONS: Pleural effusion. DESCRIPTION OF PROCEDURE: After informed consent, the right posterior thorax was cleaned with chlorhexidine. The right 9th intercoastal space and the midscapular area were infiltrated with lidocaine all the way to the pleura. Pleural cavity was entered and 20 mL of somewhat turbid milky colored yellow fluid was removed. An 8 Tunisian catheter was inserted and a total of additional 2000 mL of fluid was removed without difficulty. It appeared to be colorless in origin by the color. However, it was sent for appropriate studies including cytology and culture. Job ID: [id number]
[2019-07-21] MEDS ORDERED: Fentanyl 100 MCG/2 ML VIAL ONE (12:39)
[2019-07-21] MEDS ORDERED: Succinylcholine Chloride 20 MG/ML 10 ml SYRINGE FS ONE (14:28)
[2019-07-21] MEDS ORDERED: Ondansetron PF 4 MG/2 ML Vial ONE (14:28)
[2019-07-21] MEDS ORDERED: Lidocaine 1% PF 5 ML VIAL ONE (14:28)
[2019-07-21] MEDS ORDERED: PROPOFOL 200 MG/20 ML VIAL ONE (14:28)
[2019-07-21] MEDS ORDERED: Labetalol HCl 100 MG/20 ML VIAL ONE (14:30)
[2019-07-21] MEDS: Acetaminophen 500 MG TAB PO SCH ×2 (14:54→17:56)
[2019-07-21] MEDS ORDERED: Polyethylene Glycol 3350 17 GM Packet PO SCH (17:00)
[2019-07-21] MEDS: Oxybutynin 5 MG TAB PO PRN (17:56)
--- NOTE | 2019-07-21 18:11 | PRG ---
DATE OF SERVICE: 07/21/2019 SUBJECTIVE: The patient reports ongoing continued flank and abdominal pain. He states it is fairly well controlled with the PROCESS STRIPPER with 2/3 out of 10. He has not been able to urinate after his biopsy and had a catheter placed at that time. He is currently having some bladder spasms, reporting urgency symptoms. There is no hematuria. He currently is not having any significant shortness of breath. OBJECTIVE: VITAL SIGNS: Temperature 98.6, pulse 92, respirations 18, blood pressure 125/90, and saturations 93% on 2 L nasal cannula. GENERAL: Appears uncomfortable, but is answering questions appropriately. CARDIOVASCULAR: Regular rate and rhythm. ABDOMEN: Soft, distended, tender to palpation on the right side. No obvious bruising or ecchymosis at this time. : Kaur catheter currently in place with clear yellow urine. EXTREMITIES: 2+ edema bilaterally. No cyanosis. LABORATORY EVALUATION: White count is currently 10, hemoglobin 12.6, platelet count of 399. Creatinine of 0.76. ASSESSMENT AND PLAN: A 54-year-old white male with prior retroperitoneal bleed, which was under observation with ongoing right flank pain in evolution to a right-sided psoas muscle base mass, which is either a retroperitoneal sarcoma versus a retroperitoneal lymphoma. He has already undergone a biopsy and we are awaiting the results. Further decisions on the mass will be based off biopsy results. We would recommend transfer to [facility] if it is a sarcoma and initiation of chemotherapy if it is lymphoma. Regarding his urinary retention, we will start him on Flomax to improve the odds of him voiding when it is time for a void trial. He is having bladder spasms, so we can start him on oxybutynin at the current time for assistance with this issue. I do suspect that some of his urinary retention is due to high usage of narcotics along with constipation as the patient has not had a bowel movement in approximately 3 days. He is already receiving laxatives. Once he has an adequate bowel movement, we can consider a void trial with the Flomax on board, which should improve his ability to urinate. I will continue to follow along and make recommendations. Job ID: [id number]
[2019-07-21] MEDS: Levothyroxine Sodium 50 MCG TAB PO SCH (20:55)
[2019-07-21] MEDS: Ezetimibe 10 MG TAB PO SCH (20:56)
[2019-07-21] MEDS: Tamsulosin HCl 0.4 MG CAP PO SCH (20:56)
[2019-07-21] MEDS: Cyclobenzaprine 10 MG TAB PO SCH (20:56)
[2019-07-21] MEDS: Carvedilol 6.25 MG TAB PO SCH (20:57)
[2019-07-21] MEDS: Zolpidem Tartrate 5 MG TAB PO PRN (21:02)
--- NOTE | 2019-07-21 22:22 | CON ---
DATE OF CONSULTATION: REASON FOR CONSULTATION: Retroperitoneal mass. HISTORY OF PRESENT ILLNESS: Mr. Guzman is a pleasant 54-year-old gentleman, who presented to the emergency room initially in April 2019 with severe right flank pain. 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 This showed a large right-sided retroperitoneal hematoma measuring 12.9 x 11 x 17 cm. It was displacing the right kidney. He also had a moderate right pleural effusion and some prostate enlargement. He was admitted for bowel obstruction. After discharge, he had a followup scan in May was essentially stable with no significant change. There did appear to be involvement of the right psoas and quadratus lumborum musculature. He underwent a thoracentesis in early June. Cytology was negative for malignant cells. He was scheduled for an outpatient biopsy of this mass tomorrow. This weekend, he began to have intractable pain and presented to the emergency room for evaluation. CT scan on the showed a large retroperitoneal mass with interval increase in size now measuring 19.9 x 19.5 cm. He had again a pleural effusion. Dr. Kinney saw the patient and performed a thoracentesis. He went down for biopsy of this retroperitoneal mass today. He was seen at bedside with family present. His pain is controlled, but he is post anesthesia. Family states that he has had some bilateral lower extremity swelling. He has lost 60 pounds since April. He has early satiety with fullness after 5 or 6 bites of food. He has had night sweats , but they feel like secondary to pain. PAST MEDICAL HISTORY: 1. Diabetes. 2. Hypertension. 3. Hypothyroidism. PAST SURGICAL HISTORY: Small bowel obstruction in April, gastric sleeve, left and right hip and knee replacement. ALLERGIES: CEFOXITIN, CEFTRIAXONE. HOME MEDICATIONS: 1. Coreg. 2. Clonidine. 3. Flexeril. 4. Zetia. 5. Meghna. 6. Flonase. 7. Hydrocodone. 8. Synthroid. 9. Sertraline. 10. Ambien. FAMILY HISTORY: No family history of lymphoma or sarcoma. SOCIAL HISTORY: , lives with his . 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 No alcohol, tobacco, or illicit drug use. REVIEW OF SYSTEMS: A 10-point review of systems is negative except for noted in HPI. PHYSICAL EXAMINATION: VITAL SIGNS: Temperature is 98.6, pulse is 92, respiratory rate 18, blood pressure is 125/90, he is 94% on 2 L. GENERAL: This is a well-developed, well-nourished male, in no acute distress. HEENT: Normocephalic, atraumatic. Pupils are equal and reactive to light. NECK: Supple. CV: Regular rate and rhythm. LUNGS: Clear. ABDOMEN: Distended, but nontender. Bowel sounds are positive. EXTREMITIES: He has 1+ bilateral lower extremity edema. SKIN: No rash. HEMATOLOGICAL: No petechiae or purpura. NEUROLOGICAL: Nonfocal. PERTINENT LABS AND X-RAYS: Current WBCs are 10, hemoglobin 12.6, hematocrit 27.5, platelet count is 399,000. He has 73% neutrophils, 17% lymphocytes. PT is 13.7 , INR is 1.1, PTT is 27.6. Sodium is 140, potassium 3.9, chloride 100, CO2 is 30 , BUN is 9, creatinine 0.76, calcium 8.5, bilirubin is 1.1, AST is 20, ALT is less than 7, ALT is 93. LDH is 215. Troponin is negative. Serum total protein is 5.7, albumin 3.5, globulin 2.2. Urine is negative for bacteria. ASSESSMENT: 1. Large retroperitoneal mass. 2. Pleural effusion. DISCUSSION: The patient's pleural effusion has been drained and cytology is currently pending. His retroperitoneal mass has been biopsied. Results are currently pending. We will check a PSA and a uric acid. Differentials include lymphoma versus a sarcoma. I discussed this briefly with the family. If it is sarcoma, it is possible he could be transferred as an inpatient to [facility]. If it is lymphoma, he will be treated here. The case will be discussed with Dr. Gutierrez. Thank you for the consult. Job ID: [id number] [facility]
[2019-07-22] MEDS: Acetaminophen 500 MG TAB PO SCH ×4 (00:13→17:45)
[2019-07-22] MEDS: HYDROmorphone 10 mg/100 ml CADD IVPB PRN ×2 (02:19→18:10)
--- NOTE | 2019-07-22 06:12 | PDOC.FM ---
- Subjective Subjective: Pt is relatively unchanged although pain is controlled enough he is able to stand. He is pending his lab results. is in the room. He has not had a BM. - Objective Vital Signs & Weight: Vital Signs (12 hours) Temp Pulse Resp BP BP Pulse Ox 07/22/19 04:00 98.1 F 90 16 112/67 07/22/19 00:30 97.9 F 102 H 16 104/67 92 L 07/21/19 20:57 117/76 07/21/19 20:00 98.7 F 92 16 117/76 96 Weight Admit Weight 119.204 kg Weight 119.204 kg I&O: 07/20/19 07/21/19 07/22/19 06:59 06:59 06:59 Intake Total 1770 Output Total 650 Balance 1770 -650 Result Diagrams: 07/21/19 04:57 07/21/19 10:17 Phys Exam - Physical Examination Constitutional: NAD HEENT: PERRLA, moist MMs Respiratory: no wheezing, clear to auscultation bilateral Cardiovascular: RRR, no significant murmur Gastrointestinal: soft, positive bowel sounds mildly distended, 1 + edema in abdomen Musculoskeletal: edema present Dx/Plan (1) Pleural effusion Code(s): J90 - PLEURAL EFFUSION, NOT ELSEWHERE CLASSIFIED Status: Acute (2) Retroperitoneal mass Code(s): R19.00 - INTRA-ABD AND PELVIC SWELLING, MASS AND LUMP, UNSP SITE Status: Acute (3) Acquired polycythemia Code(s): D75.1 - SECONDARY POLYCYTHEMIA Status: Acute (4) Borderline diabetes mellitus Code(s): R73.03 - PREDIABETES Status: Acute (5) HLD (hyperlipidemia) Code(s): E78.5 - HYPERLIPIDEMIA, UNSPECIFIED Status: Chronic (6) HTN (hypertension) Code(s): I10 - ESSENTIAL (PRIMARY) HYPERTENSION Status: Chronic - Plan Plan: Retroperitoneal mass - Urology, Dr. Ackerman, consulted for workup. Dr. Sunshine will take over pt care this morning 07/21. He discussed with pt sarcoma (transfer to [facility]) vs lymphoma (treatment with Onc in [facility]). - Pending results CT guided biopsy 07/21 Intractable pain - likely secondary to the large retroperitoneal mass causing mass effect within his abdomen. - Currently on Morphine and Dilaudid for pain management. - Consulted anesthesia for pain control. R large pleural effusion, recurrent, resolved - Consulted Dr. Kinney. S/p thoracentesis. Possible chylous. - Pending cytology Urinary Retention - Kaur catheter placed. Possibly secondary to constipation - bowel regimen initiated - oxybutynin, flomax initiated Bilateral lower extremity edema, Abdominal edema - No known history of heart failure. - likely 2/2 retroperitoneal mass effect on vasculature. - Will monitor I/o Cholelithiasis - RUQ US earlier this week showed small gall stones without evidence of cholelithiasis. Type II DM, diet controlled - No longer taking medications SAWYER - will order CPAP qHS. HTN - Will continue home medications Insomnia - Will continue home medications Hypothyroidism - Will continue home medications Disposition/LOS: Dispo: Stable Code: Full VTE PPX: Lovenox Addendum - Attending - Attending Attestation Date/Time: 07/22/19 3540 I personally evaluated the patient and discussed the management with Dr. Mcintosh I agree with the History, Examination, Assessment and Plan documented above with any addition or exceptions noted below. CXR today due to desaturation with talking. Pain is controlled. Has not had BM yet so will continue to titrate up regimen. Path pending which will determine treatment her or at [facility].
[2019-07-22] MEDS: Lactated Ringer's 1,000 ML IV SCH (06:52)
[2019-07-22] MEDS: Loratadine 10 MG TAB PO SCH (08:23)
[2019-07-22] MEDS: Polyethylene Glycol 3350 17 GM Packet PO SCH (08:23)
[2019-07-22] MEDS: Senokot S 8.6-50 MG TAB PO SCH ×2 (08:24→20:38)
[2019-07-22] MEDS: Oxybutynin 5 MG TAB PO PRN ×2 (10:51→20:39)
--- NOTE | 2019-07-22 11:32 | RAD ---
XR Chest Pa Lat STANDARD HISTORY: Pleural effusion COMPARISON: 07/18/2019 FINDINGS: The heart size is normal. A calcified granuloma in the left midlung is again seen. There ar e bilateral pleural effusions, right greater than left with adjacent infiltrate/atelectatic changes..
[2019-07-22] MEDS: Benzonatate 100 MG CAP PO PRN ×2 (12:26→17:46)
--- NOTE | 2019-07-22 15:31 | PRG ---
DATE OF SERVICE: 07/22/2019 SUBJECTIVE: Mr. Guzman is afebrile. OBJECTIVE: VITAL SIGNS: Heart rate is in the 90s, respiratory rate in the teens, oximetry is 93% on 2 L, blood pressure 120/70. LABORATORY DATA: Pleural effusion was negative for malignancy. Fluid was lymphocyte predominant. The protein was 3.7, LDH 370. Making this an exudate. Cholesterol was 95, triglycerides were 89. IMPRESSION: Abdominal mass. Biopsy is pending. We are awaiting that. Job ID: [id number]
[2019-07-22 15:35] LABS: Bilirubin Negative (Negative); Blood, Urine 2+ (Negative); Clarity Extra Turbid (Clear); Glucose, Urine (Dipstick) Normal (Negative); Leukocyte 500 Leu/uL (Negative); Nitrite Negative (Negative); Protein, Urine (Dipstick) 70 mg/dL (Neg-Trace); Squamous Epithelial None Seen HPF (0-3)
[2019-07-22 15:42] LABS: Bacteria/HPF None Seen HPF (None Seen)
--- NOTE | 2019-07-22 16:26 | PDOC.MOPN ---
Interval History: Pain controlled with RISK ADVISOR. - Vital Signs Vital Signs: Vital Signs (12 hours) Temp Pulse Resp BP BP Pulse Ox 07/22/19 12:00 98.0 F 99 16 120/70 93 L 07/22/19 08:00 92 L 07/22/19 07:55 98.1 F 98 17 120/70 92 L Weight Admit Weight 262 lb 12.8 oz Weight 262 lb 12.8 oz - Physical Exam General: Alert, Oriented x3, No acute distress HEENT: Atraumatic, PERRLA, EOMI, Mucous membr. moist/pink Lungs: Clear to auscultation, Normal air movement Cardiovascular: Regular rate, Normal S1, Normal S2, No murmurs, Gallops, Rubs Abdomen: Other (distended, tender) Extremities: Other (2+ BLE) Skin: No rashes, No breakdown, No significant lesion Neurological: Normal speech Psych/Mental Status: Mental status NL - Labs Result Diagrams: 07/21/19 04:57 07/21/19 10:17 Lab results: Laboratory Results - last 24 hr 07/22/19 14:25: Urine Color [place] A, Urine Clarity Extra Turbid A, Urine pH 6.0 , Ur Specific [place] 1.034, Urine Protein 70 A, Urine Glucose (UA) Normal, Urine Ketones 10 A, Urine Blood 2+ A, Urine Nitrite Negative, Urine Bilirubin Negative, Urine Urobilinogen 4.0 A, Ur Leukocyte Esterase 500 A, Urine RBC 11- 20 A, Urine WBC 11-20 A, Ur Squamous Epith Cells None Seen, Amorphous Crystals 4 + A, Urine Bacteria None Seen, Hyaline Casts 0-3 07/22/19 05:24: Prostate Specific Ag 3.29 07/22/19 05:24: Uric Acid 9.4 H Status: lab reviewed by me A/P - Problem (1) Pleural effusion Current Visit: Yes Code(s): J90 - PLEURAL EFFUSION, NOT ELSEWHERE CLASSIFIED Status: Acute (2) Retroperitoneal mass Current Visit: Yes Code(s): R19.00 - INTRA-ABD AND PELVIC SWELLING, MASS AND LUMP, UNSP SITE Status: Acute - Plan Plan: Path pending cytology from pleural fluid negative for malignancy pain controlled. Further recs once path back, hopefully prelim tomorrow.
[2019-07-22] MEDS: Milk Of Magnesia 30 ML UDCUP PO PRN (16:54)
--- NOTE | 2019-07-22 19:54 | PRG ---
DATE OF SERVICE: 07/22/2019 SUBJECTIVE: The patient states he is feeling a lot better today. His pain is much better controlled. He still has not had a bowel movement. His bladder spasms stopped after the oxybutynin. He has been initiated on Flomax. He denies any new chest pain, shortness of breath, or worsening pain symptoms other than what he has already had previously experienced, although it is generally better than before. OBJECTIVE: VITAL SIGNS: Temperature 98.1, pulse 98, respirations 17, blood pressure 120/70, and saturation 92% on room air. GENERAL: No apparent distress. Communicative and alert. CARDIOVASCULAR: Regular rate and rhythm. ABDOMEN: Soft, protuberant, mildly distended, tender to palpation more so on the right. : Kaur catheter in place with clear yellow urine. EXTREMITIES: 1+ edema bilaterally. LABORATORY EVALUATION: There are no new labs today for evaluation. Pathology from biopsy is still pending at this time. ASSESSMENT AND PLAN: A 54-year-old white male with a retroperitoneal mass with bleed, status post percutaneous biopsy, awaiting results. He also has urinary retention, which likely has occurred from high narcotic usage along with constipation and underlying BPH. He is already taking Flomax. We would recommend continuation of aggressive bowel regimen. Once the patient has had a bowel movement, a voiding trial can be attempted. Ultimate disposition for the patient is pending the biopsy and most likely the family has requested, they would like transferred to [facility] for treatment of any cancer that is found. I will continue to follow along and make recommendations. Job ID: [id number]
[2019-07-22] MEDS: Ezetimibe 10 MG TAB PO SCH (20:36)
[2019-07-22] MEDS: Tamsulosin HCl 0.4 MG CAP PO SCH (20:37)
[2019-07-22] MEDS: Cyclobenzaprine 10 MG TAB PO SCH (20:37)
[2019-07-22] MEDS: Carvedilol 6.25 MG TAB PO SCH (20:37)
[2019-07-22] MEDS: Levothyroxine Sodium 50 MCG TAB PO SCH (20:37)
[2019-07-22] MEDS: diphenhydrAMINE 25 MG CAP PO PRN (20:42)
[2019-07-23] MEDS: Acetaminophen 500 MG TAB PO SCH ×5 (00:45→23:03)
[2019-07-23] MEDS: Milk Of Magnesia 30 ML UDCUP PO PRN (05:33)
[2019-07-23] MEDS: Fluticasone Propionate Nasal Spray 16 gm Bottle NASAL PRN (05:34)
[2019-07-23] MEDS: Benzonatate 100 MG CAP PO PRN (05:57)
[2019-07-23] MEDS: Oxybutynin 5 MG TAB PO PRN (05:57)
--- NOTE | 2019-07-23 06:15 | PDOC.FM ---
- Subjective Subjective: Mr. Guzman is doing well. He has not had a BM yet. He continues with pain in his R flank, back. He thinks abdominal swelling has decreased but remains in his legs. - Objective Vital Signs & Weight: Vital Signs (12 hours) Temp Pulse Resp BP BP BP Pulse Ox 07/23/19 05:00 98.8 F 109 H 18 122/70 93 L 07/23/19 00:00 103 H 18 93 L 07/22/19 20:37 137/78 07/22/19 20:35 98.1 F 108 H 18 137/78 94 L Weight Admit Weight 119.204 kg Weight 119.204 kg I&O: 07/21/19 07/22/19 07/23/19 06:59 06:59 06:59 Intake Total 1900 Output Total 650 600 Balance -650 1300 Result Diagrams: 07/21/19 04:57 07/21/19 10:17 Phys Exam - Physical Examination Constitutional: NAD HEENT: PERRLA, moist MMs Respiratory: no wheezing, no rales, no rhonchi Decreased breath sounds R lower lung Cardiovascular: RRR Gastrointestinal: soft, non-tender, positive bowel sounds mild distention Musculoskeletal: pulses present 1+ pitting edema Psychiatric: A&O x 3 Dx/Plan (1) Pleural effusion Code(s): J90 - PLEURAL EFFUSION, NOT ELSEWHERE CLASSIFIED Status: Acute (2) Retroperitoneal mass Code(s): R19.00 - INTRA-ABD AND PELVIC SWELLING, MASS AND LUMP, UNSP SITE Status: Acute (3) Acquired polycythemia Code(s): D75.1 - SECONDARY POLYCYTHEMIA Status: Acute (4) Borderline diabetes mellitus Code(s): R73.03 - PREDIABETES Status: Acute (5) HLD (hyperlipidemia) Code(s): E78.5 - HYPERLIPIDEMIA, UNSPECIFIED Status: Chronic (6) HTN (hypertension) Code(s): I10 - ESSENTIAL (PRIMARY) HYPERTENSION Status: Chronic - Plan Plan: Retroperitoneal mass - Urology, Dr. Ackerman, consulted for workup. Dr. Sunshine will take over pt care this morning 07/21. He discussed with pt sarcoma (transfer to [facility]) vs lymphoma (treatment with Onc in [facility]). - Pending results CT guided biopsy 07/21 Intractable pain - likely secondary to the large retroperitoneal mass causing mass effect within his abdomen. - Currently on Morphine and Dilaudid for pain management. - Consulted anesthesia for pain control. R large pleural effusion, recurrent, resolved - Consulted Dr. Kinney. S/p thoracentesis. Possible chylous. Dr. Charles has seen pt in oupt setting. Will call today. - Negative cytology Constipation Remains w/o BM. Will add lactulose, 2 rounds of MOM yesterday Urinary Retention - Kaur catheter placed. Possibly secondary to constipation - bowel regimen initiated - oxybutynin, flomax initiated - pt had a dirty urine w/o evidence of bacturia. Will send for culture. 1 dose of levaquin given. Will continue levaquin until culture results. Bilateral lower extremity edema, Abdominal edema - No known history of heart failure. - likely 2/2 retroperitoneal mass effect on vasculature. - Will monitor I/o Cholelithiasis - RUQ US earlier this week showed small gall stones without evidence of cholelithiasis. Type II DM, diet controlled - No longer taking medications SAWYER - will order CPAP qHS. HTN - Will continue home medications Insomnia - Will continue home medications Hypothyroidism - Will continue home medications Disposition/LOS: Dispo: Stable Code: Full VTE PPX: Lovenox Addendum - Attending - Attending Attestation Date/Time: 07/23/19 9856 I personally evaluated the patient and discussed the management with Dr. Mcintosh I agree with the History, Examination, Assessment and Plan documented above with any addition or exceptions noted below. prelim path shows B-cell lymphoma. Oncology making recommendations. patient has become more tachypnic and tachycardic as well as having an increased oxygen requirement. CT chest with contrast ordered by onc. If sx do not improve tomorrow, will consider CTA chest. Restarting lovenox 40 mg BID and will check [id number] level to verify adequate DVT PPx.
[2019-07-23] MEDS: Senokot S 8.6-50 MG TAB PO SCH ×2 (07:53→20:44)
[2019-07-23] MEDS: Polyethylene Glycol 3350 17 GM Packet PO SCH (07:53)
[2019-07-23] MEDS: Loratadine 10 MG TAB PO SCH (07:53)
--- NOTE | 2019-07-23 09:57 | PDOC.MOPN ---
Interval History: c/o constipation - Vital Signs Vital Signs: Vital Signs (12 hours) Temp Pulse Resp BP BP Pulse Ox 07/23/19 08:43 98.3 F 109 H 20 97/52 L 92 L 07/23/19 08:00 93 L 07/23/19 05:00 98.8 F 109 H 18 122/70 93 L 07/23/19 00:00 103 H 18 93 L Weight Admit Weight 262 lb 12.8 oz Weight 262 lb 12.8 oz - Physical Exam General: Alert, Oriented x3, No acute distress HEENT: Atraumatic, PERRLA, EOMI, Mucous membr. moist/pink Lungs: Clear to auscultation, Normal air movement Cardiovascular: Regular rate, Normal S1, Normal S2, No murmurs, Gallops, Rubs Abdomen: Other (distended and firm) Extremities: Other (2+ BLE) Skin: No rashes, No breakdown, No significant lesion Neurological: Normal speech - Labs Result Diagrams: 07/21/19 04:57 07/21/19 10:17 Lab results: Laboratory Results - last 24 hr 07/22/19 14:25: Urine Color [place] A, Urine Clarity Extra Turbid A, Urine pH 6.0 , Ur Specific [place] 1.034, Urine Protein 70 A, Urine Glucose (UA) Normal, Urine Ketones 10 A, Urine Blood 2+ A, Urine Nitrite Negative, Urine Bilirubin Negative, Urine Urobilinogen 4.0 A, Ur Leukocyte Esterase 500 A, Urine RBC 11- 20 A, Urine WBC 11-20 A, Ur Squamous Epith Cells None Seen, Amorphous Crystals 4 + A, Urine Bacteria None Seen, Hyaline Casts 0-3 Status: lab reviewed by al - Pathology Pathology: b-cell lymphoma A/P - Problem (1) Pleural effusion Current Visit: Yes Code(s): J90 - PLEURAL EFFUSION, NOT ELSEWHERE CLASSIFIED Status: Acute (2) Retroperitoneal mass Current Visit: Yes Code(s): R19.00 - INTRA-ABD AND PELVIC SWELLING, MASS AND LUMP, UNSP SITE Status: Acute (3) Lymphoma malignant, large cell Current Visit: Yes Code(s): C85.80 - OTH TYPES OF NON-HODGKIN LYMPHOMA, UNSPECIFIED SITE Status: Acute - Plan Plan: Path shows large b-cell lymphoma, await FISH and immunostains plan CT chest, echo, mediport in anticipation on cycle 1 chemo this hospitalization discussed with blayne
[2019-07-23] MEDS ORDERED: Enoxaparin Sodium 40 MG/0.4 ML SYRINGE SC SCH ×2 (10:30→21:00)
--- NOTE | 2019-07-23 11:21 | CT ---
EXAM: CT of the chest with contrast HISTORY: Newly diagnosed lymphoma COMPARISON: None TECHNIQUE: Multiple contiguous axial images were obtained in a CT the chest with contrast. Coronal an d sagittal reformats were performed. FINDINGS: HEART: Normal in size without focal cardiac abnormality MEDIASTINUM: No hilar or mediastinal lymphadenopathy. LUNGS: A calcified granuloma is seen in the left upper lobe. No focal infiltrates, suspicious nodules , or suspicious masses. PLEURAL SPACE: Moderate right pleural effusion with adjacent atelectasis. Small left pleural effusion with adjacent atelectasis. CHEST WALL SOFT TISSUES: Unremarkable OSSEOUS STRUCTURES: Degenerative changes in the spine. VISUALIZED SUBDIAPHRAGMATIC STRUCTURES: Postsurgical changes in the stomach. Soft tissue density surr ounds and displaces the right kidney. IMPRESSION: Bilateral pleural effusions with adjacent atelectasis.
--- NOTE | 2019-07-23 13:56 | CT ---
EXAM: CT Abd Perc Retroperitneal Bx PROVIDED CLINICAL HISTORY: Large right retroperitoneal mass COMPARISON: None TECHNIQUE: The procedure including the risks and complications were discussed with the patient as well as the cuong dawson's , and informed consent was obtained. The patient was unable to tolerate lying in a left lateral decubitus position or in a prone position due to severe pain. Patient requested anesthesia fo r the procedure. Procedure was also discussed with Dr. Ackerman regarding needle approach for biopsy. General endotracheal anesthesia was performed by the anesthesiology department. The patient was place d in a left lateral decubitus position. A noncontrasted CT scan was obtained through the abdomen with grid localizer in place. An area overlying the posterolateral right flank was marked, and the ar ea was meticulously prepped and draped in usual sterile fashion. The skin and subcutaneous tissues were infiltrated with buffered 1% lidocaine for local anesthesia. A small skin incision was made. A 1 7-gauge guide needle was advanced to the level of the peripheral aspect of the large right retroperitoneal mass. A single 18-gauge core needle biopsy specimen was obtained utilizing coaxial te chnique. Specimen was evaluated by pathology, and adequate tissue was seen on initial touch prep by pathology. Two additional biopsies were obtained as requested by pathology. The inner dilator was rep laced, and the needle was removed. Hemostasis was achieved with direct pressure. The patient tolerated the procedure well and without immediate complication. Postprocedure CT scan ex amination does not demonstrate evidence of a hematoma or fluid within the soft tissues at site of biopsy. Pathology is currently pending. IMPRESSION: Technically successful CT-guided percutaneous biopsy of large right retroperitoneal mass. Pathology i s currently pending. Transcribed Date/Time: 07/23/2019 1:55 PM
--- NOTE | 2019-07-23 14:18 | PRG ---
DATE OF SERVICE: 07/23/2019 Mr. Guzman reportedly has a B-cell lymphoma. This is not in the computer yet, but nurse practitioner for the oncologist relayed this information to me. He has significant dyspnea on exertion when he moves about, which in large part is secondary to ascites, but is also secondary to pleural fluid, that is left over from his tap. He is comfortable at rest. He clearly clinically has an aggressive lymphoma and would benefit from chemotherapy as soon as possible in my opinion. I do not feel thoracentesis is indicated today, but we will reassess him on a daily basis. Job ID: [id number]
--- NOTE | 2019-07-23 14:37 | PRG ---
DATE OF SERVICE: 07/23/2019 SUBJECTIVE: The patient is sleeping today. His is at bedside, who is awake. She states that he has had a bowel movement and is feeling much less bloated and much less distended. He is still significantly weak and has not been able to get out of his bed well on his own. She requested to keep the catheter in at least until tomorrow, at which point, we could attempt a void trial. He has not had any significant worsening of shortness of breath or chest pain. OBJECTIVE: VITAL SIGNS: Temperature 98.2, pulse 104, respirations 20, blood pressure 122/69, and saturation 92% on room air. GENERAL: No apparent distress, sleeping. ABDOMEN: Abdominal exam was deferred at this time given the patient is sleeping. EXTREMITIES: No significant cyanosis. 1+ edema bilaterally. Pulses symmetric and regular rate and rhythm. : Kaur catheter is in place, draining clear yellow urine LABORATORY DATA: PSA was checked, which came back at 3.3. ASSESSMENT AND PLAN: This is a 54-year-old white male with retroperitoneal mass status post biopsy, which has come back with a preliminary report of lymphoma. This is a better prognosis overall than having sarcoma. At this point, there is no further intervention from a urologic standpoint regarding his retroperitoneal mass as this would need to be dealt with by Oncology primarily with chemotherapy or any other treatments that they recommend. From my standpoint, his urinary retention is probably secondary again to high-dose opiates as well as constipation and weakness. We would recommend that we can do a void trial tomorrow, but if the patient fails, would recommend re-insertion of the catheter and leaving the catheter in until his opiate requirements have dropped and the patient has regained strength, at which time, we can repeat another void trial. If he is in the hospital at that point here, this can be done with me, otherwise it can be done as an outpatient. If the patient is at [facility], the urologist there can resume his care and cover for his voiding trial at that time. I will continue to follow along and make any recommendations as necessary. We would recommend that he remain on his Flomax. Job ID: [id number]
[2019-07-23] MEDS ORDERED: Iopamidol-370 76% 500 ML 1 ML ONE (16:04)
[2019-07-23] MEDS: HYDROmorphone 10 mg/100 ml CADD IVPB PRN (19:36)
[2019-07-23] MEDS: diphenhydrAMINE 25 MG CAP PO PRN (20:41)
[2019-07-23] MEDS: Cyclobenzaprine 10 MG TAB PO SCH (20:43)
[2019-07-23] MEDS: Carvedilol 6.25 MG TAB PO SCH (20:43)
[2019-07-23] MEDS: Tamsulosin HCl 0.4 MG CAP PO SCH (20:44)
[2019-07-23] MEDS: Levothyroxine Sodium 50 MCG TAB PO SCH (20:44)
[2019-07-23] MEDS: Ezetimibe 10 MG TAB PO SCH (20:44)
[2019-07-23] MEDS: Allopurinol 100 MG TAB PO SCH (20:44)
[2019-07-24] MEDS: Oxybutynin 5 MG TAB PO PRN (05:31)
[2019-07-24] MEDS: Acetaminophen 500 MG TAB PO SCH ×6 (05:36→20:37)
--- NOTE | 2019-07-24 06:19 | PDOC.FM ---
- Subjective Subjective: Pt had 2 BM's yesterday. Feels moderately satisfied. He remains with significant pain with movement, ambulation. He was able to shower despite pain. Sent Dr. Wyatt restrepo to update his situation. at bedside. - Objective Vital Signs & Weight: Vital Signs (12 hours) Temp Pulse Resp BP BP Pulse Ox 07/24/19 05:30 97.7 F 106 H 18 106/61 93 L 07/24/19 00:00 105 H 18 93 L 07/23/19 20:43 98.3 F 107 H 17 126/70 94 L 07/23/19 20:40 94 L Weight Admit Weight 119.204 kg Weight 119.204 kg I&O: 07/22/19 07/23/19 07/24/19 06:59 06:59 06:59 Intake Total 2686 729 6886 Output Total 600 600 750 Balance 1300 100 790 Result Diagrams: 07/21/19 04:57 07/21/19 10:17 Phys Exam - Physical Examination Constitutional: NAD Respiratory: no wheezing Decreased breath sounds on right, slight crackles r lower base Gastrointestinal: soft, no distention, positive bowel sounds mild tenderness R > L Musculoskeletal: pulses present 1+ pitting edema LE Dx/Plan (1) Pleural effusion Code(s): J90 - PLEURAL EFFUSION, NOT ELSEWHERE CLASSIFIED Status: Acute (2) Retroperitoneal mass Code(s): R19.00 - INTRA-ABD AND PELVIC SWELLING, MASS AND LUMP, UNSP SITE Status: Acute (3) Acquired polycythemia Code(s): D75.1 - SECONDARY POLYCYTHEMIA Status: Acute (4) Borderline diabetes mellitus Code(s): R73.03 - PREDIABETES Status: Acute (5) HLD (hyperlipidemia) Code(s): E78.5 - HYPERLIPIDEMIA, UNSPECIFIED Status: Chronic (6) HTN (hypertension) Code(s): I10 - ESSENTIAL (PRIMARY) HYPERTENSION Status: Chronic - Plan Plan: 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 Onc jc on board, Dr. Gutierrez and Sania Khanna. Mediport placement and will start chemotherapy. He will remain in hospital for first cycle to help reduce size, reduce pain so he does not need DRIVER EDUCATION INSTRUCTOR pump. Transfer to oncology. - pt has high pain burden from mass, likely mass effect, making daily activities difficult. - consulted anesthesia for pain control R large pleural effusion, recurrent, resolved - Dr. Charles following and will not procede with 2nd thoracentesis - contributing to pt's oxygen requirement Tachycardia w/ oxygen requirement - negative CTA for PE Constipation - resolved - d/c lactulose - continue daily prophylactic medications Urinary Retention - Marcial catheter placed. Possibly secondary to constipation - bowel regimen initiated - Dr. Abreu initiated oxybutynin, flomax. Will perform a voiding trial, if failed replace marcial catheter. Likely 2/2 constipation, opioid requirement. - urine cx negative to date Bilateral lower extremity edema, Abdominal edema - No known history of heart failure. Echo revealed EF 55-60% - likely 2/2 retroperitoneal mass effect on vasculature. - Will monitor I/o Cholelithiasis - RUQ US earlier this week showed small gall stones without evidence of cholecystitis Type II DM, diet controlled - No longer taking medications SAWYER - will order CPAP qHS. HTN - Will continue home medications Insomnia - Will continue home medications Hypothyroidism - Will continue home medications Disposition/LOS: Dispo: Stable Code: Full VTE PPX: Lovenox 40 mg BID w/ cancer hx Addendum - Attending - Attending Attestation Date/Time: 07/24/19 4427 I personally evaluated the patient and discussed the management with Dr. Mcintosh I agree with the History, Examination, Assessment and Plan documented above with any addition or exceptions noted below. Mediport placement today and will start 1st round of chemotherapy. Patient had 2 BM yesterday. Will give additional day of PO laxatives and if stools soft will attempt voiding trial tomorrow. PT added today to prevent deconditioning. Once port placement and bone marrow biopsy completed will titrate lovenox to ppx dose with anti 10a level for VTE/DVT ppx.
--- NOTE | 2019-07-24 08:31 | PDOC.MOPN ---
Interval History: pain still significant but managed by QUICK TECHNICIAN. he is tired and is still not eating well. breathing stable - Vital Signs Vital Signs: Vital Signs (12 hours) Temp Pulse Resp BP BP BP Pulse Ox 07/24/19 07:40 98.1 F 99 18 135/75 92 L 07/24/19 05:30 97.7 F 106 H 18 106/61 93 L 07/24/19 00:00 105 H 18 93 L 07/23/19 20:43 98.3 F 107 H 17 126/70 94 L 07/23/19 20:40 94 L Weight Admit Weight 262 lb 12.8 oz Weight 262 lb 12.8 oz - Physical Exam General: Alert, Mild distress Lungs: Clear to auscultation, Other (decrezsed BS in bases letha) Cardiovascular: Regular rate Abdomen: Other (distended, abdominal wall edema noted, mildly tender) Extremities: Other (edema noted letha) Skin: No rashes Neurological: Normal speech Psych/Mental Status: Mental status NL - Labs Result Diagrams: 07/21/19 04:57 07/21/19 10:17 Lab results: Laboratory Results - last 24 hr 07/24/19 05:09: Heparin Anti-Xa, LM Wt Less than 0.1 07/23/19 17:11: Lactate Dehydrogenase 351 H - Pathology Pathology: prelim: large B cell lymphoma, FISH pending A/P - Problem (1) Lymphoma malignant, large cell Current Visit: Yes Code(s): C85.80 - OT TYPES OF NON-HODGKIN LYMPHOMA, UNSPECIFIED SITE Status: Acute (2) Pleural effusion Current Visit: Yes Code(s): J90 - PLEURAL EFFUSION, NOT ELSEWHERE CLASSIFIED Status: Acute (3) Retroperitoneal mass Current Visit: Yes Code(s): R19.00 - INTRA-ABD AND PELVIC SWELLING, MASS AND LUMP, UNSP SITE Status: Acute (4) SBO (small bowel obstruction) Current Visit: No Code(s): K56.609 - UNSP INTESTNL OBST, UNSP TO PARTIAL VERSUS COMPLETE OBST Status: Acute - Plan Plan: 1. transfer to oncology 2. f/u echo 3. BM biopsy 4. consider CHOP-R tomorrow 5. allopurinol 6. cont IVF
[2019-07-24] MEDS: Loratadine 10 MG TAB PO SCH (09:25)
[2019-07-24] MEDS: Polyethylene Glycol 3350 17 GM Packet PO SCH (09:25)
[2019-07-24] MEDS: Senokot S 8.6-50 MG TAB PO SCH ×2 (09:25→20:38)
[2019-07-24] MEDS ORDERED: Lidocaine 1% w/Epinephrine 1:100K 20 ML VIAL ONE (10:58)
[2019-07-24] MEDS ORDERED: Bupivacaine 0.25% HCL 30 ML VIAL ONE (10:58)
[2019-07-24] MEDS ORDERED: Fentanyl 100 MCG/2 ML VIAL ONE ×2 (11:07→12:03)
[2019-07-24] MEDS ORDERED: Dexmedetomidine 200 MCG/2 ML VIAL ONE (11:40)
[2019-07-24] MEDS ORDERED: Levofloxacin 500 mg/D5W 100 ml Premix Bag ONE (12:00)
[2019-07-24] MEDS ORDERED: PROPOFOL 20 ML ONE (12:03)
[2019-07-24] MEDS ORDERED: Propofol 500 MG/50 ML VIAL ONE (12:05)
[2019-07-24] MEDS ORDERED: Ondansetron HCl/PF 4 MG/2 ML Vial IVP PRN (12:10)
[2019-07-24] MEDS ORDERED: HYDROmorphone 2 MG/ML VIAL SLOW IVP PRN (12:10)
[2019-07-24] MEDS ORDERED: Promethazine HCl 25 MG/ML VIAL SLOW IVP PRN (12:10)
--- NOTE | 2019-07-24 12:36 | RAD ---
CHEST 1 VIEW: HISTORY: Interval placement of a right-sided Mediport catheter. Comparison: 07/22/2019. FINDINGS: Cardiac silhouette:Upper normal cardiac silhouette. Aorta: Unremarkable. Pulmonary vessels: Normal. Costophrenic angles: Right-sided pleural effusion. Lines and tubes: Right-sided Mediport catheter with the distal tip projecting over the expected regio n of the superior vena cava. Evaluation is limited as the PICC line is partially obscured by the thoracic vertebrae. LUNGS: Persistent decreased right hemithoracic lung volume. Right lower lobe atelectasis, aspiration and/or pneumonia should be considered. Additional patchy interstitial opacities are noted in the left lung base which partially obscure the descending thoracic aorta. Pneumothorax: None. Osseous abnormalities: None. IMPRESSION: 1. Right-sided Mediport catheter as above. 2. Pleural and parenchymal changes in the right lung base. 3. No pneumothorax. Transcribed Date/Time: 07/24/2019 12:54 PM
[2019-07-24] MEDS ORDERED: PROPOFOL 200 MG/20 ML VIAL ONE (14:22)
[2019-07-24] MEDS: Tamsulosin HCl 0.4 MG CAP PO SCH (20:38)
[2019-07-24] MEDS: Allopurinol 100 MG TAB PO SCH (20:38)
[2019-07-24] MEDS: Levothyroxine Sodium 50 MCG TAB PO SCH (20:38)
[2019-07-24] MEDS: Carvedilol 6.25 MG TAB PO SCH (20:39)
[2019-07-24] MEDS: Ezetimibe 10 MG TAB PO SCH (20:39)
[2019-07-24] MEDS: Cyclobenzaprine 10 MG TAB PO SCH (21:28)
[2019-07-25] MEDS: Acetaminophen 500 MG TAB PO SCH ×4 (04:20→20:57)
[2019-07-25] MEDS: HYDROmorphone 10 mg/100 ml CADD IVPB PRN ×2 (04:30→19:08)
--- NOTE | 2019-07-25 05:49 | PDOC.FM ---
- Subjective Subjective: Pt remained with pain yesterday. He was able to walk a short distance with physical therapy. Overnight he was restless, rhonchi w/ breathing. He will be sent for a bone marrow biopsy this morning and start chemotherapy afterwards. - Objective Vital Signs & Weight: Vital Signs (12 hours) Temp Pulse Resp BP BP BP Pulse Ox 07/25/19 03:40 98.2 F 102 H 16 127/68 94 L 07/25/19 00:00 97.5 F L 96 16 114/76 94 L 07/24/19 20:39 135/63 07/24/19 20:30 96 07/24/19 19:31 98.0 F 104 H 16 135/63 96 07/24/19 19:00 99 135/63 07/24/19 18:00 97 123/72 Weight Admit Weight 119.204 kg Weight 119.204 kg I&O: 07/23/19 07/24/19 07/25/19 06:59 06:59 06:59 Intake Total 700 1540 1430 Output Total 600 750 900 Balance 100 790 530 Result Diagrams: 07/21/19 04:57 07/21/19 10:17 Phys Exam - Physical Examination Constitutional: NAD Respiratory: no wheezing, no rales decreased breath sounds in R base, rhonchi present Cardiovascular: RRR, no significant murmur Gastrointestinal: soft, non-tender mildly distended Musculoskeletal: pulses present Dx/Plan (1) Pleural effusion Code(s): J90 - PLEURAL EFFUSION, NOT ELSEWHERE CLASSIFIED Status: Acute (2) Retroperitoneal mass Code(s): R19.00 - INTRA-ABD AND PELVIC SWELLING, MASS AND LUMP, UNSP SITE Status: Acute (3) Acquired polycythemia Code(s): D75.1 - SECONDARY POLYCYTHEMIA Status: Acute (4) Borderline diabetes mellitus Code(s): R73.03 - PREDIABETES Status: Acute (5) HLD (hyperlipidemia) Code(s): E78.5 - HYPERLIPIDEMIA, UNSPECIFIED Status: Chronic (6) HTN (hypertension) Code(s): I10 - ESSENTIAL (PRIMARY) HYPERTENSION Status: Chronic - Plan Plan: 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 Onc jc on board, Dr. Gutierrez and Sania Khanna. Mediport placement and will start chemotherapy. He will remain in hospital for first cycle to help reduce size, reduce pain so he does not need WARE TESTER pump. Transfer to oncology. - pt has high pain burden from mass, likely mass effect, making daily activities difficult. - consulted anesthesia for pain control - requiring paperwork for [employer] [facility] [employer] Medical Leave Act R large pleural effusion, recurrent, resolved - Dr. Charles following and will not proceede with 2nd thoracentesis - contributing to pt's oxygen requirement Tachycardia w/ oxygen requirement - continue to monitor Constipation - resolved - lactulose prn - continue daily prophylactic medications Urinary Retention - Marcial catheter placed. - Dr. Abreu initiated oxybutynin, flomax. Will perform a voiding trial once procedures are finished, if failed replace marcial catheter. Likely 2/2 constipation, opioid requirement. - urine cx negative to date Bilateral lower extremity edema, Abdominal edema - No known history of heart failure. Echo revealed EF 55-60% - likely 2/2 retroperitoneal mass effect on vasculature. - Will monitor I/O Cholelithiasis - RUQ US earlier this week showed small gall stones without evidence of cholecystitis Type II DM, diet controlled - No longer taking medications SAWYER - will order CPAP qHS. HTN - Will continue home medications Insomnia - Will continue home medications Hypothyroidism - Will continue home medications Disposition/LOS: Dispo: Stable Code: Full VTE PPX: Lovenox 40 mg BID w/ cancer hx held for procedures. Will restart once procedures are finished. Addendum - Attending - Attending Attestation Date/Time: 07/25/19 1206 I personally evaluated the patient and discussed the management with Dr. Mcintosh I agree with the History, Examination, Assessment and Plan documented above with any addition or exceptions noted below. CT bone marrow bx today. starting chemo today. successfully voided w/o marcial yesterday. continue to monitor. Appears to have tachy episodes overnight so suspect atelectasis. PT, incentive spirometry, and will continue to monitor.
[2019-07-25] MEDS ORDERED: Palonosetron HCl 0.25 MG in Sodium Chloride 0.9% 50 ML IVPB SCH (06:00)
[2019-07-25] MEDS ORDERED: vinCRIStine Sulfate 2 MG in Sodium Chloride 0.9% 50 ML IVPB SCH (06:00)
[2019-07-25] MEDS ORDERED: CYCLOPHOSPHAMIDE IVPB SCH ×2 (06:00→10:15)
[2019-07-25] MEDS ORDERED: DOXORUBICIN IVPB SCH ×2 (06:00→17:15)
[2019-07-25] MEDS ORDERED: RITUXIMAB IVPB SCH ×2 (06:00→10:00)
[2019-07-25] MEDS ORDERED: SODIUM CHLORIDE 0.9% IVPB SCH ×6 (06:00→17:15)
[2019-07-25] MEDS ORDERED: Acetaminophen 500 MG TAB PO SCH (06:00)
[2019-07-25] MEDS ORDERED: Dexamethasone 20 MG in Sodium Chloride 0.9% 50 ML IVPB SCH (06:00)
--- NOTE | 2019-07-25 08:37 | PRG ---
DATE OF SERVICE: 07/24/2019 SUBJECTIVE: Carmelo Guzman says he is feeling about the same. OBJECTIVE: VITAL SIGNS: He is afebrile, heart rate is 99, respiratory rate 18, sats 92%, blood pressure 135/75. ABDOMEN: Unchanged. ASSESSMENT AND PLAN: He is to have a port and a bone marrow biopsy today hopefully while he is sedated. Hopefully, he starts chemo tomorrow. I do not feel he needs another thoracentesis at this poin;. although, he still has pleural fluid in his chest. He did not have mediastinal lymphadenopathy on chest CT. . Job ID: [id number]
[2019-07-25] MEDS: Loratadine 10 MG TAB PO SCH (08:38)
[2019-07-25] MEDS: Senokot S 8.6-50 MG TAB PO SCH ×2 (08:39→20:59)
[2019-07-25] MEDS: Polyethylene Glycol 3350 17 GM Packet PO SCH (08:39)
--- NOTE | 2019-07-25 08:59 | OP ---
DATE OF PROCEDURE: 07/24/2019 PREOPERATIVE DIAGNOSIS: Lymphoma. POSTOPERATIVE DIAGNOSIS: Lymphoma. PROCEDURE PERFORMED: Tunneled central line with subcutaneous port (MediPort right IJ, CT injectable). ANESTHESIA: General. ESTIMATED BLOOD LOSS: Minimal. COMPLICATIONS: None. SPECIMEN: None. FINDINGS: The tip of the catheter was at the atriocaval junction on fluoro. DESCRIPTION OF PROCEDURE: The patient was taken to the operating room and laid supine on the operating room table. After general anesthetic was obtained, bilateral neck and chest were shaved, prepped, and draped in a sterile fashion. Local anesthetic was infiltrated over the right internal jugular vein. Internal jugular vein cannula using a 22-gauge finder needle followed by a Seldinger needle. The wire was passed into the superior vena cava under fluoro guidance. The wire was used as a guide to dilate the internal jugular vein. A separate 3-cm incision made in the right upper chest. Subcutaneous pocket was made below the lower incision, tubing for the MediPort tunneled from the inferior to the superior incision. An introducer sheath was placed over the wire into the superior vena cava under fluoro guidance. The dilator and wire were removed. The end of the catheter was sewed into the sheath. The sheath was peeled away. The tip of the catheter was at the atriocaval junction. MediPort tubing cut to fit the MediPort at the lower incision. Connected to the MediPort, the MediPort was sewn to the chest wall in the subcutaneous pocket using Prolene. MediPort was flushed and alannah blood without difficulty, it was flushed with a heparin flush. The wounds were all irrigated and closed using 3-0 Vicryl, 4-0 Monocryl, and Dermabond. The patient was sent to Recovery in stable condition. All instrument counts, needle counts, and lap counts were correct. Job ID: [id number]
[2019-07-25] MEDS ORDERED: PROPOFOL 200 MG/20 ML VIAL ONE (10:15)
[2019-07-25] MEDS ORDERED: Rocuronium Bromide 10 MG/ML (10ML VIAL) ONE (10:15)
[2019-07-25] MEDS ORDERED: Succinylcholine Chloride 20 MG/ML 10 ml SYRINGE FS ONE (10:15)
[2019-07-25] MEDS ORDERED: Lidocaine 1% PF 5 ML VIAL ONE (10:15)
[2019-07-25] MEDS ORDERED: Glycopyrrolate 0.2 MG/ML 5 ML SYRINGE ONE (10:15)
[2019-07-25] MEDS ORDERED: Ondansetron PF 4 MG/2 ML Vial ONE (10:15)
[2019-07-25] MEDS ORDERED: Midazolam HCl 2 mg/2 ml Vial ONE (11:07)
[2019-07-25] MEDS ORDERED: Fentanyl 100 MCG/2 ML VIAL ONE (11:07)
[2019-07-25] MEDS ORDERED: diphenhydrAMINE 50 MG in Sodium Chloride 0.9% 50 ML IVPB SCH (11:45)
[2019-07-25] MEDS ORDERED: Rituximab 500 MG, Rituximab 300 MG in Sodium Chloride 0.9% 500 ML IVPB SCH (12:00)
--- NOTE | 2019-07-25 13:22 | CT ---
CT GUIDED RIGHT ILIAC BONE MARROW ASPIRATION AND BIOPSY: CLINICAL HISTORY: Lymphoma. PROCEDURE: The procedure including the risks and complications were explained to the patient, and informed conse nt was obtained. The patient was placed on the CT scan table in the prone position. General endotracheal anesthesia was performed by the anesthesiology department. Noncontrasted CT images were obtained through the pelvis. An area was marked overlying the RIGHT janessa c bone, and the area was meticulously prepped and draped in usual sterile fashion. The skin and subcutaneous tissues were infiltrated with buffered 1% lidocaine for local anesthesia. After a small skin incision was made, an 11-gauge needle was advanced and positioning was confirmed w ith axial CT images. Approximately 9 milliliters of bone marrow aspirate was obtained. The needle was then further advanced, and a bone marrow biopsy was performed. The needle was removed, and hemost asis was achieved with direct pressure. The patient tolerated the procedure well and without immediate complication. The patient was transported to radiology nurses holding area for further enrique toring prior to discharge. IMPRESSION: Technically successful percutaneous bone marrow aspiration and biopsy. Pathology results are pending.
--- NOTE | 2019-07-25 13:53 | PDOC.MOPN ---
Interval History: feels ok, pain controlled. - Vital Signs Vital Signs: Vital Signs (12 hours) Temp Pulse Resp BP Pulse Ox 07/25/19 08:00 93 L 07/25/19 07:50 97.9 F 102 H 18 133/87 93 L 07/25/19 03:40 98.2 F 102 H 16 127/68 94 L Weight Admit Weight 262 lb 12.8 oz Weight 262 lb 12.8 oz - Physical Exam General: Alert, Oriented x3, No acute distress HEENT: Atraumatic, PERRLA, EOMI, Mucous membr. moist/pink Lungs: Clear to auscultation, Normal air movement Cardiovascular: Regular rate, Normal S1, Normal S2, No murmurs, Gallops, Rubs Abdomen: Other Extremities: No clubbing, No cyanosis, No edema, Normal pulses, No tenderness/ swelling Skin: No rashes, No breakdown, No significant lesion Neurological: Normal speech - Labs Result Diagrams: 07/21/19 04:57 07/21/19 10:17 Lab results: Laboratory Results - last 24 hr 07/25/19 05:12: POC Glucose 89 07/24/19 19:34: POC Glucose 106 07/24/19 16:43: POC Glucose 107 Status: lab reviewed by me A/P - Problem (1) Pleural effusion Current Visit: Yes Code(s): J90 - PLEURAL EFFUSION, NOT ELSEWHERE CLASSIFIED Status: Acute (2) Retroperitoneal mass Current Visit: Yes Code(s): R19.00 - INTRA-ABD AND PELVIC SWELLING, MASS AND LUMP, UNSP SITE Status: Acute (3) Lymphoma malignant, large cell Current Visit: Yes Code(s): C85.80 - [facility] TYPES OF NON-HODGKIN LYMPHOMA, UNSPECIFIED SITE Status: Acute - Plan Plan: bone marrow biopsy completed today [facility] in. plan R-CHOP tomorrow am. Continue monitoring over the next several days.
--- NOTE | 2019-07-25 15:21 | PRG ---
DATE OF SERVICE: 07/25/2019 SUBJECTIVE: The patient went for his bone marrow biopsy today. He already has had a MediPort placed. He was diagnosed with B-cell lymphoma on his retroperitoneal biopsy. He is still relatively weak, but has been getting up and ambulating. His Kaur catheter was removed yesterday and the patient has voided, although he states that he is having difficulty and the reports that he is having difficulty with urination. The patient states he does not want a catheter unless he cannot urinate at all. He is still taking the Flomax. OBJECTIVE: VITAL SIGNS: Temperature 97.9, pulse 102, respirations 18, blood pressure 133/87, saturation 93% on 2 L nasal cannula. GENERAL: In no apparent distress, appears a little tired, otherwise answering questions appropriately. CARDIOVASCULAR: Regular rate and rhythm. CHEST: No increased work of breathing, symmetric expansion of lungs, bibasilar crackles. ABDOMEN: Soft, nontender, nondistended. No obvious organomegaly, although it is still little bit distended and tender on the right. : No catheter in place. Otherwise, nonfocal. EXTREMITIES: 1+ edema bilaterally without cyanosis. LABORATORY EVALUATION: There are no significantly new labs to report today. ASSESSMENT AND PLAN: A 54-year-old white male with retroperitoneal lymphoma, currently scheduled to undergo chemotherapy with Oncology. He has urinary retention secondary to benign prostatic hypertrophy and deconditioning. I would recommend that we check a postvoid residual as his urine output has been relatively low. This either could be secondary to dehydration or poor emptying on the patient's part. To sort this out, the best way to do this would be a bladder scan immediately after the patient voids. If there is a significantly elevated residual, I have recommended replacement of the Kaur catheter until the patient regains more strength. If he is emptying adequately, the catheter can be left out per the patient's wishes. We would recommend continuation of the patient's Flomax. If the catheter is replaced, the patient has requested to keep the oxybutynin, which helped with bladder spasms. For now, Dr. Darren Abreu will be available over the weekend for any issues or concerns. I will resume care on Sunday if there are any ongoing issues with his voiding. Job ID: [id number]
[2019-07-25] MEDS: Cyclobenzaprine 10 MG TAB PO SCH (20:56)
[2019-07-25] MEDS: Tamsulosin HCl 0.4 MG CAP PO SCH (20:56)
[2019-07-25] MEDS: Allopurinol 100 MG TAB PO SCH (20:57)
[2019-07-25] MEDS: Ezetimibe 10 MG TAB PO SCH (20:59)
[2019-07-25] MEDS: Levothyroxine Sodium 50 MCG TAB PO SCH (21:00)
[2019-07-25] MEDS: Carvedilol 6.25 MG TAB PO SCH (21:00)
[2019-07-26] MEDS ORDERED: Furosemide 20 MG/2 ML VIAL SLOW IVP SCH (03:00)
[2019-07-26] MEDS: Acetaminophen 500 MG TAB PO SCH ×4 (03:20→20:26)
[2019-07-26 04:49] LABS: ALT (SGPT) Less than 7 U/L (8-55); AST (SGOT) 19 U/L (5-34); Albumin 2.8 g/dL (3.5-5.0); Alkaline Phosphatase 87 U/L (40-110); Anion Gap 15 mmol/L (10-20); BUN (Urea Nitrogen) 13 mg/dL (8.4-25.7); Bilirubin, Total 0.9 mg/dL (0.2-1.2); Calc. Creatinine Clearance 113 mL/min (70-130); Calcium 8.4 mg/dL (7.8-10.44); Carbon Dioxide 27 mmol/L (22-29); Chloride 101 mmol/L (98-107); Estimated GFR-MDRD 61; Glucose 102 mg/dL (70-105); Potassium 3.9 mmol/L (3.5-5.1); Protein, Total 4.8 g/dL (6.0-8.3); Sodium 139 mmol/L (136-145)
[2019-07-26 05:29] LABS: #Basophils 0.1 thou/uL (0.0-0.2); #Eosinphils 0.3 thou/uL (0.0-0.7); #Lymphocytes 1.6 thou/uL (1.20-3.40); #Monocytes 0.9 thou/uL (0.11-0.59); #Neutrophils 6.5 thou/uL (1.40-6.50); %Basophils 0.7 % (0.0-1.0); %Eosinophils 2.7 % (0.0-10.0); %Lymphocytes 17.3 % (21.0-51.0); %Neutrophils 69.3 % (42.0-75.0); Hemoglobin 11.2 g/dL (14.0-18.0); Mean Corpuscular HGB CONC 33.6 g/dL (32.0-36.0); Mean Corpuscular Hemoglobin 32.4 pg (27.0-31.0); Mean Corpuscular Volume 96.5 fL (78.0-98.0); Mean Platelet Volume 7.2 fL (7.4-10.4); Platelet Count 375 thou/uL (130-400); RBC Distribution Width 15.2 % (11.5-14.5); Red Blood Cell (RBC) Count 3.46 mill/uL (4.70-6.10); White Blood Cell (WBC) Count 9.4 thou/uL (4.8-10.8)
--- NOTE | 2019-07-26 06:12 | PDOC.FM ---
- Subjective Subjective: Pt asleep upon entry to room. Family in room awakens and states he slept well overnight. Pain is well controlled with pain pump. Pt gets pain with slight agitation when he awakens and has to sit up. He goes for his chemo treatment this morning. Mediport in place. Pt in good spirits when awakens. States he is very swollen everywhere. - Objective MAR Reviewed: Yes Vital Signs & Weight: Vital Signs (12 hours) Temp Pulse Resp BP BP Pulse Ox 07/26/19 04:00 98.2 F 99 16 116/66 95 07/26/19 01:53 93 L 07/25/19 23:31 97.6 F 94 16 140/67 93 L 07/25/19 21:00 129/68 07/25/19 20:00 98.4 F 104 H 16 129/68 94 L Weight Admit Weight 119.204 kg Weight 119.204 kg I&O: 07/24/19 07/25/19 07/26/19 06:59 06:59 06:59 Intake Total 1540 1430 360 Output Total 580 562 8341 Balance 790 530 -645 Result Diagrams: 07/26/19 03:36 07/26/19 03:36 Phys Exam - Physical Examination Constitutional: NAD HEENT: moist MMs, sclera anicteric Neck: supple, full ROM Respiratory: wheezing present Bibasilar crackles. Cardiovascular: RRR, no significant murmur, no rub distended abdomen with fluid wave. Musculoskeletal: edema present (3+ LE's, edema present in hands, scrotum and abdomen. ) Neurological: non-focal Psychiatric: normal affect, A&O x 3 Skin: no rash, normal turgor, cap refill <2 seconds Dx/Plan (1) Lymphoma malignant, large cell Code(s): C85.80 - OT TYPES OF NON-HODGKIN LYMPHOMA, UNSPECIFIED SITE Status: Acute (2) Pleural effusion Code(s): J90 - PLEURAL EFFUSION, NOT ELSEWHERE CLASSIFIED Status: Acute (3) Acquired polycythemia Code(s): D75.1 - SECONDARY POLYCYTHEMIA Status: Acute (4) Borderline diabetes mellitus Code(s): R73.03 - PREDIABETES Status: Acute (5) SAWYER (obstructive sleep apnea) Code(s): G47.33 - OBSTRUCTIVE SLEEP APNEA (ADULT) (PEDIATRIC) Status: Acute (6) HLD (hyperlipidemia) Code(s): E78.5 - HYPERLIPIDEMIA, UNSPECIFIED Status: Chronic (7) HTN (hypertension) Code(s): I10 - ESSENTIAL (PRIMARY) HYPERTENSION Status: Chronic - Plan Plan: 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 Onc jc on board, Dr. Gutierrez and Sania Khanna. Mediport placement and will start chemotherapy. He will remain in hospital for first cycle to help reduce size, reduce pain so he does not need ELECTRONICS INSTRUCTOR pump. Transfer to oncology. - pt has high pain burden from mass, likely mass effect, making daily activities difficult. - anesthesia for pain control - requiring paperwork for [employer] Medical Leave Act R large pleural effusion, recurrent, resolved - Dr. Charles following and will not proceed with 2nd thoracentesis - contributing to pt's oxygen requirement Tachycardia w/ oxygen requirement - continue to monitor Constipation - resolved - lactulose prn - continue daily prophylactic medications Urinary Retention - Marcial catheter placed. - Dr. Abreu initiated oxybutynin, flomax. Will perform a voiding trial once procedures are finished, failed on 07/25 and marcial catheter replaced. Likely 2/ 2 BPH or constipation, opioid requirement. - urine cx negative to date Bilateral lower extremity edema, Abdominal edema - No known history of heart failure. Echo revealed EF 55-60% - likely 2/2 retroperitoneal mass effect on vasculature. - Will monitor I/O Cholelithiasis - RUQ US earlier this week showed small gall stones without evidence of cholecystitis Type II DM, diet controlled - No longer taking medications SAWYER - will order CPAP qHS. HTN - Will continue home medications Insomnia - Will continue home medications Hypothyroidism - Will continue home medications Disposition/LOS: Dispo: Stable Code: Full VTE PPX: Lovenox 40 mg BID w/ cancer hx held for procedures. Will restart once procedures are finished.
[2019-07-26] MEDS ORDERED: PEGFILGRASTIM-JMDB 6 MG/0.6 ML SYRINGE SQ SCH (08:00)
[2019-07-26] MEDS: Senokot S 8.6-50 MG TAB PO SCH ×2 (08:52→20:25)
[2019-07-26] MEDS: Loratadine 10 MG TAB PO SCH (08:53)
[2019-07-26] MEDS: Polyethylene Glycol 3350 17 GM Packet PO SCH (08:54)
[2019-07-26] MEDS: Benzonatate 100 MG CAP PO PRN (09:07)
[2019-07-26] MEDS: Oxybutynin 5 MG TAB PO PRN ×2 (10:42→15:57)
[2019-07-26] MEDS: HYDROmorphone 10 mg/100 ml CADD IVPB PRN (14:02)
--- NOTE | 2019-07-26 14:04 | PDOC.MOPN ---
Interval History: right flank pain, controlled with Dilaudid - Vital Signs Vital Signs: Vital Signs (12 hours) Temp Pulse Resp BP BP Pulse Ox 07/26/19 13:24 97.9 F 96 16 138/81 92 L 07/26/19 12:00 98.0 F 95 16 115/81 95 07/26/19 08:00 98.4 F 96 16 121/76 97 07/26/19 04:00 98.2 F 99 16 116/66 95 Weight Admit Weight 262 lb 12.8 oz Weight 262 lb 12.8 oz - Physical Exam General: Alert, Oriented x3, No acute distress HEENT: Atraumatic, PERRLA, EOMI, Mucous membr. moist/pink Lungs: Clear to auscultation, Normal air movement Cardiovascular: Regular rate, Normal S1, Normal S2, No murmurs, Gallops, Rubs Abdomen: Normal bowel sounds, Soft, No tenderness, No hepatospenomegaly, No masses Extremities: No clubbing, No cyanosis, No edema, Normal pulses, No tenderness/ swelling Skin: No rashes, No breakdown, No significant lesion Neurological: Normal gait, Normal speech, Strength at 5/5 X4 ext, Normal tone, Sensation intact, Cranial nerves 3-12 NL, Reflexes 2+ Psych/Mental Status: Mental status NL, Mood NL - Labs Result Diagrams: 07/26/19 03:36 07/26/19 03:36 Lab results: Laboratory Results - last 24 hr 07/26/19 12:13: POC Glucose 98 07/26/19 03:36: WBC 9.4, RBC 3.46 L, Hgb 11.2 L, Hct 33.4 L, MCV 96.5, MCH 32.4 H, MCHC 33.6, RDW 15.2 H, Plt Count 375, MPV 7.2 L, Neutrophils % 69.3, Lymphocytes % 17.3 L, Monocytes % 10.0, Eosinophils % 2.7, Basophils % 0.7, Neutrophils # 6.5, Lymphocytes # 1.6, Monocytes # 0.9 H, Eosinophils # 0.3, Basophils # 0.1 07/26/19 03:36: Lactate Dehydrogenase 333 H 07/26/19 03:36: Sodium 139, Potassium 3.9, Chloride 101, Carbon Dioxide 27, Anion Gap 15, BUN 13, Creatinine 1.24, Estimated GFR (MDRD) 61, Glucose 102, Uric Acid 9.0 H, Calcium 8.4, Total Bilirubin 0.9, AST 19, ALT Less than 7 L, Alkaline Phosphatase 87, Serum Total Protein 4.8 L, Albumin 2.8 L, Globulin 2.0 L, Albumin/Globulin Ratio 1.4 07/25/19 21:06: POC Glucose 112 H 07/25/19 16:10: POC Glucose 121 H Status: lab reviewed by me A/P - Problem (1) Pleural effusion Current Visit: Yes Code(s): J90 - PLEURAL EFFUSION, NOT ELSEWHERE CLASSIFIED Status: Acute (2) Retroperitoneal mass Current Visit: Yes Code(s): R19.00 - INTRA-ABD AND PELVIC SWELLING, MASS AND LUMP, UNSP SITE Status: Acute (3) Lymphoma malignant, large cell Current Visit: Yes Code(s): C85.80 - OTH TYPES OF NON-HODGKIN LYMPHOMA, UNSPECIFIED SITE Status: Acute - Plan Plan: Rituxan infusing and tolerating well. Complete chemo today Continue pain management. daily uric acid, LDH, BMP
--- NOTE | 2019-07-26 14:50 | EKG ---
Test Reason : ABD PAIN Blood Pressure : / mmHG Vent. Rate : 104 BPM Atrial Rate : 104 BPM P-R Int : 132 ms QRS Dur : 092 ms QT Int : 356 ms P-R-T Axes : 064 025 022 degrees QTc Int : 468 ms Sinus tachycardia Otherwise normal ECG Confirmed by HARINI CALDWELL, TO ([id number]), production editor POLO ROCK ([id number]) on 07/26/2019 2:49:55 PM Referred By: Confirmed By:TO SCHULER MD
[2019-07-26] MEDS ORDERED: Lorazepam 2 MG/ML VIAL SLOW IVP SCH (15:45)
--- NOTE | 2019-07-26 15:58 | PRG ---
DATE OF SERVICE: 07/26/2019 Please see the note from Dr. Danika Montes, for which I agree. The patient was seen, evaluated, discussed, and examined with the residents by bedside. This gentleman now has a port placed and I am needing a catheterize because a urinary problems, but is going to start CHOP therapy for the B-cell lymphoma today. We did discuss with Oncology if XRT may be palliative considering the tumor bulk and the amount of pain he is having. They thought he would respond hopefully fairly quickly to the chemotherapy, which hopefully will help with pain and lack of p.o. intake. Possibly because of the tumor bulk on the IVC, having quite a bit of edema in the lower extremities, and still with also low albumin, so we are giving him a little more aggressive Lasix, watch his kidney function, may have to consider IV albumin as well, but continue current management, supportive care, and pain management while Oncology starts the chemotherapy. Job ID: [id number]
--- NOTE | 2019-07-26 16:44 | PRG ---
DATE OF SERVICE: 07/26/2019 SUBJECTIVE: Mr. Guzman had his port and his bone marrow biopsy yesterday. OBJECTIVE: VITAL SIGNS: He is afebrile. Heart rate is 90s to 107, respiratory rates in the teens, oximetry is 94 to 95 on a cannula, and blood pressure 133/73. This exam is unchanged. LABORATORY DATA: White count 9.4, hemoglobin 11.2, platelets 375. Electrolytes are normal. Creatinine is normal. He is starting chemo today. His uric acid is 9.0, this likely is related to his tumor. IMPRESSION: 1. Lymphoma. 2. Ascites. 3. Pleural effusion that is overwhelmingly likely related to his lymphoma, even though the cytology was negative. PLAN: We will continue to follow. There is no clinical indication for another thoracentesis at this point. Job ID: [id number]
[2019-07-26] MEDS ORDERED: predniSONE 50 MG TAB PO SCH (17:45)
[2019-07-26] MEDS ORDERED: DOXORUBICIN IVPB SCH (19:45)
[2019-07-26] MEDS ORDERED: SODIUM CHLORIDE 0.9% IVPB SCH (19:45)
[2019-07-26] MEDS: Allopurinol 100 MG TAB PO SCH (20:25)
[2019-07-26] MEDS: Ezetimibe 10 MG TAB PO SCH (20:26)
[2019-07-26] MEDS: Tamsulosin HCl 0.4 MG CAP PO SCH (20:26)
[2019-07-26] MEDS: Cyclobenzaprine 10 MG TAB PO SCH (20:26)
[2019-07-26] MEDS: Levothyroxine Sodium 50 MCG TAB PO SCH (20:26)
[2019-07-26] MEDS: Carvedilol 6.25 MG TAB PO SCH (20:28)
[2019-07-27] MEDS: Acetaminophen 500 MG TAB PO SCH ×5 (03:18→21:05)
[2019-07-27 05:57] LABS: ALT (SGPT) Less than 7 U/L (8-55); AST (SGOT) 21 U/L (5-34); Alkaline Phosphatase 93 U/L (40-110); Anion Gap 15 mmol/L (10-20); BUN (Urea Nitrogen) 22 mg/dL (8.4-25.7); Bilirubin, Total 0.8 mg/dL (0.2-1.2); Calc. Creatinine Clearance 128 mL/min (70-130); Calcium 7.8 mg/dL (7.8-10.44); Carbon Dioxide 27 mmol/L (22-29); Chloride 100 mmol/L (98-107); Estimated GFR-MDRD 69; Globulin 2.2 g/dL (2.4-3.5); Glucose 168 mg/dL (70-105); Magnesium 1.9 mg/dL (1.6-2.6); Potassium 5.5 mmol/L (3.5-5.1); Protein, Total 5.2 g/dL (6.0-8.3); Sodium 136 mmol/L (136-145); Uric Acid 8.9 mg/dL (3.5-7.2)
--- NOTE | 2019-07-27 06:26 | PDOC.FM ---
- Subjective Subjective: Pt had diffuse night sweats overnight, soaking his sheets several times. Pt had his first round of CHOPR yesterday, will receive infusion [id number]. Not eating well, about half of a grilled cheese yesterday. Pain manageable with dilaudid pump. - Objective Vital Signs & Weight: Vital Signs (12 hours) Temp Pulse Resp BP BP Pulse Ox 07/27/19 03:25 97.1 F L 86 16 123/70 94 L 07/27/19 00:00 93 L 07/26/19 23:26 98.5 F 103 H 16 117/67 93 L 07/26/19 22:53 12 07/26/19 20:28 128/74 07/26/19 19:45 93 L 07/26/19 19:20 109 H 16 97 Weight Admit Weight 119.204 kg Weight 118.841 kg I&O: 07/25/19 07/26/19 07/27/19 06:59 06:59 06:59 Intake Total 7331 602 8503 Output Total 900 1005 550 Balance 530 -645 905 Result Diagrams: 07/26/19 03:36 07/27/19 05:20 Phys Exam - Physical Examination Constitutional: NAD HEENT: moist MMs, sclera anicteric Neck: supple Respiratory: no rales, no rhonchi, clear to auscultation bilateral Cardiovascular: RRR, no significant murmur tense distended abdomen diffuse generalized pitting edema Neurological: non-focal, moves all 4 limbs Psychiatric: A&O x 3 Skin: no rash Dx/Plan (1) Lymphoma malignant, large cell Code(s): C85.80 - [facility] TYPES OF NON-HODGKIN LYMPHOMA, UNSPECIFIED SITE Status: Acute (2) Pleural effusion Code(s): J90 - PLEURAL EFFUSION, NOT ELSEWHERE CLASSIFIED Status: Acute (3) Acquired polycythemia Code(s): D75.1 - SECONDARY POLYCYTHEMIA Status: Acute (4) Borderline diabetes mellitus Code(s): R73.03 - PREDIABETES Status: Acute (5) SAWYER (obstructive sleep apnea) Code(s): G47.33 - OBSTRUCTIVE SLEEP APNEA (ADULT) (PEDIATRIC) Status: Acute (6) HLD (hyperlipidemia) Code(s): E78.5 - HYPERLIPIDEMIA, UNSPECIFIED Status: Chronic (7) HTN (hypertension) Code(s): I10 - ESSENTIAL (PRIMARY) HYPERTENSION Status: Chronic - Plan Plan: 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 Onc jc on board, Dr. Gutierrez and Sania Khanna. Mediport placement and will start chemotherapy. He will remain in hospital for first cycle to help reduce size, reduce pain so he does not need REFRIGERATING MACHINE OPERATOR pump. Transfer to oncology. - pt has high pain burden from mass, likely mass effect, making daily activities difficult. - anesthesia for pain control - requiring paperwork for [employer] Leave Act Hyperkalemia - K 5.5, likely 2/2 tumor lysis syndrome from first dose of CHOPR - Oncology consulted, Placed pt on NS @ 100 ml/hr and continued lasix. - will repeat BMP at 2 PM. R large pleural effusion, recurrent, resolved - Dr. Charles following and will not proceed with 2nd thoracentesis - contributing to pt's oxygen requirement Tachycardia w/ oxygen requirement - continue to monitor Constipation - resolved - lactulose prn - continue daily prophylactic medications Urinary Retention - Marcial catheter placed. - Dr. Abreu initiated oxybutynin, flomax. Will perform a voiding trial once procedures are finished, failed on 07/25 and marcial catheter replaced. Likely 2/ 2 BPH or constipation, opioid requirement. - urine cx negative to date Bilateral lower extremity edema, Abdominal edema - No known history of heart failure. Echo revealed EF 55-60% - likely 2/2 retroperitoneal mass effect on vasculature. - Will monitor I/O Cholelithiasis - RUQ US earlier this week showed small gall stones without evidence of cholecystitis Type II DM, diet controlled - No longer taking medications SAWYER - will order CPAP qHS. HTN - Will continue home medications Insomnia - Will continue home medications Hypothyroidism - Will continue home medications Disposition/LOS: Dispo: Stable Code: Full VTE PPX: Lovenox 40 mg BID w/ cancer hx held for procedures. Will restart once procedures are finished.
[2019-07-27] MEDS ORDERED: Furosemide 20 MG/2 ML VIAL SLOW IVP SCH (07:00)
[2019-07-27] MEDS: Sodium Chloride 0.9% 1,000 ML IV SCH ×3 (07:05→17:08)
[2019-07-27 08:14] LABS: #Lymphocytes 0.5 thou/uL (1.20-3.40); #Monocytes 0.1 thou/uL (0.11-0.59); #Neutrophils 6.9 thou/uL (1.40-6.50); %Basophils 0.5 % (0.0-1.0); %Eosinophils 0.4 % (0.0-10.0); %Lymphocytes 6.2 % (21.0-51.0); %Monocytes 1.1 % (0.0-10.0); %Neutrophils 91.7 % (42.0-75.0); Mean Corpuscular HGB CONC 32.7 g/dL (32.0-36.0); Mean Corpuscular Hemoglobin 31.7 pg (27.0-31.0); Mean Corpuscular Volume 96.9 fL (78.0-98.0); Mean Platelet Volume 6.9 fL (7.4-10.4); Platelet Count 361 thou/uL (130-400); RBC Distribution Width 15.2 % (11.5-14.5); Red Blood Cell (RBC) Count 3.79 mill/uL (4.70-6.10); White Blood Cell (WBC) Count 7.5 thou/uL (4.8-10.8)
[2019-07-27] MEDS: Ondansetron PF 4 MG/2 ML Vial IVP PRN ×2 (09:10→15:49)
[2019-07-27] MEDS: Senokot S 8.6-50 MG TAB PO SCH ×2 (09:10→21:07)
[2019-07-27] MEDS: Furosemide 40 MG/4 ML VIAL SLOW IVP SCH (09:10)
[2019-07-27] MEDS: Oxybutynin 5 MG TAB PO PRN ×2 (09:11→21:08)
[2019-07-27] MEDS: Loratadine 10 MG TAB PO SCH (09:11)
[2019-07-27] MEDS: Polyethylene Glycol 3350 17 GM Packet PO SCH (09:12)
[2019-07-27] MEDS: Benzonatate 100 MG CAP PO PRN (09:14)
[2019-07-27] MEDS: Fluticasone Propionate Nasal Spray 16 gm Bottle NASAL PRN (09:14)
[2019-07-27] MEDS: fentaNYL 50 mcg/hour Patch TD SCH ×2 (10:00→12:27)
[2019-07-27] MEDS: HYDROmorphone 10 mg/100 ml CADD IVPB PRN (12:38)
--- NOTE | 2019-07-27 12:38 | PRG ---
DATE OF SERVICE: Please see note from Dr. Danika Montes, for which I agree. The patient was seen, evaluated, and discussed with the residents by bedside. This gentleman tolerated his first round of chemotherapy for the B-cell lymphoma yesterday. Little concern on electrolytes this morning as his potassium went up to 5.5, phosphorus is up to 5.0, LDH is up to 380. Calcium level is still fine, as we were just looking for the possibility of tumor lysis syndrome and his kidney function is still fine, so IV Lasix was added by Oncology to help prevent this, although he is extremely edematous and so we are giving him Lasix at the same time his IV fluids and may consider adding some IV albumin to see if we can get some of the fluid off him that way. May even consider compression stockings in the meantime. Other issue is his pain management, doing okay on IV Dilaudid, but still having a lot of breakthrough pain and due to the fact that eventually we are going to need to find a pain management that is going to work for him as an outpatient, I am going to provide a fentanyl patch and slowly increase that and then eventually see if we can switch him from the CHILD CARE WORKER pump IV Dilaudid to something p.o. p.r.n. Job ID: [id number]
[2019-07-27 14:19] LABS: Anion Gap 13 mmol/L (10-20); BUN (Urea Nitrogen) 27 mg/dL (8.4-25.7); Calc. Creatinine Clearance 136 mL/min (70-130); Calcium 7.7 mg/dL (7.8-10.44); Carbon Dioxide 28 mmol/L (22-29); Chloride 99 mmol/L (98-107); Estimated GFR-MDRD 75; Glucose 263 mg/dL (70-105); Potassium 4.3 mmol/L (3.5-5.1); Sodium 136 mmol/L (136-145)
[2019-07-27] MEDS ORDERED: HumaLOG 300 UNITS/3 ML VIAL SC PRN ×2 (15:17)
[2019-07-27] MEDS ORDERED: Dextrose 50% Abboject 50 ML SYRINGE SLOW IVP PRN (15:17)
[2019-07-27] MEDS ORDERED: Dextrose 5% in Water 1,000 ML IV PRN (15:17)
[2019-07-27] MEDS ORDERED: Insulin Glargine 10 UNITS in Pre-Filled Syringe SC SCH (15:30)
[2019-07-27] MEDS: Allopurinol 100 MG TAB PO SCH (21:05)
[2019-07-27] MEDS: Carvedilol 6.25 MG TAB PO SCH (21:05)
[2019-07-27] MEDS: Levothyroxine Sodium 50 MCG TAB PO SCH (21:06)
[2019-07-27] MEDS: Ezetimibe 10 MG TAB PO SCH (21:06)
[2019-07-27] MEDS: Tamsulosin HCl 0.4 MG CAP PO SCH (21:08)
[2019-07-27] MEDS: Cyclobenzaprine 10 MG TAB PO SCH (21:13)
[2019-07-28] MEDS: Sodium Chloride 0.9% 1,000 ML IV SCH ×2 (01:57→12:08)
[2019-07-28] MEDS: Acetaminophen 500 MG TAB PO SCH ×4 (04:09→21:14)
[2019-07-28] MEDS: Milk Of Magnesia 30 ML UDCUP PO PRN (05:08)
[2019-07-28 06:22] LABS: Hemoglobin 11.2 g/dL (14.0-18.0); Mean Corpuscular HGB CONC 34.1 g/dL (32.0-36.0); Mean Corpuscular Hemoglobin 32.6 pg (27.0-31.0); Mean Corpuscular Volume 95.7 fL (78.0-98.0); Platelet Count 438 thou/uL (130-400); RBC Distribution Width 15.1 % (11.5-14.5); Red Blood Cell (RBC) Count 3.42 mill/uL (4.70-6.10); White Blood Cell (WBC) Count 14.5 thou/uL (4.8-10.8)
--- NOTE | 2019-07-28 06:22 | PDOC.FM ---
- Subjective Subjective: Pt is doing well without complaints. He is tolerating his pain medication. He has not had a BM and will ask for lactulose this morning. He would like his updated with all changes. - Objective Vital Signs & Weight: Vital Signs (12 hours) Temp Pulse Resp BP BP BP Pulse Ox 07/28/19 04:01 97.5 F L 85 16 118/67 96 07/27/19 23:36 97.8 F 89 16 107/58 L 95 07/27/19 21:05 127/68 07/27/19 19:55 93 L 07/27/19 19:15 98.0 F 88 12 127/68 93 L Weight Admit Weight 119.204 kg Weight 118.841 kg I&O: 07/26/19 07/27/19 07/28/19 06:59 06:59 06:59 Intake Total 360 1455 935 Output Total 3301 076 3731 Balance -466 946 -1080 Result Diagrams: 07/28/19 04:37 07/28/19 04:37 Phys Exam - Physical Examination Constitutional: NAD HEENT: PERRLA, sclera anicteric Respiratory: no wheezing, no rhonchi, clear to auscultation bilateral Cardiovascular: RRR, no significant murmur Gastrointestinal: soft, non-tender, positive bowel sounds Psychiatric: normal affect, A&O x 3 Dx/Plan (1) Pleural effusion Code(s): J90 - PLEURAL EFFUSION, NOT ELSEWHERE CLASSIFIED Status: Acute (2) Retroperitoneal mass Code(s): R19.00 - INTRA-ABD AND PELVIC SWELLING, MASS AND LUMP, UNSP SITE Status: Acute (3) Acquired polycythemia Code(s): D75.1 - SECONDARY POLYCYTHEMIA Status: Acute (4) Borderline diabetes mellitus Code(s): R73.03 - PREDIABETES Status: Acute (5) HLD (hyperlipidemia) Code(s): E78.5 - HYPERLIPIDEMIA, UNSPECIFIED Status: Chronic (6) HTN (hypertension) Code(s): I10 - ESSENTIAL (PRIMARY) HYPERTENSION Status: Chronic - Plan Plan: 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 Onc jc on board, Dr. Gutierrez and Sania Khanna. Mediport placement and will start chemotherapy. He will remain in hospital for first cycle to help reduce size, reduce pain so he does not need [employer] COMPANY DRIVER pump. - pt has high pain burden from mass, likely mass effect, making daily activities difficult. - anesthesia for pain control - requiring paperwork for [employer] Medical Leave Act Tumor Lysis Syndrome Hyperkalemia - K 5.5, likely 2/2 tumor lysis syndrome from first dose of CHOPR - Oncology consulted, Placed pt on NS @ 50 ml/hr and continued lasix. - monitor R large pleural effusion, recurrent, resolved - Dr. Charles following and will not proceed with 2nd thoracentesis - contributing to pt's oxygen requirement Tachycardia w/ oxygen requirement - continue to monitor Constipation - resolved - lactulose prn - continue daily prophylactic medications Urinary Retention - Kaur catheter placed. - Dr. Abreu initiated oxybutynin, flomax. Kaur catheter placed. Failed first voiding trial. Likely 2/2 BPH or constipation, opioid requirement. - urine cx negative to date Bilateral lower extremity edema, Abdominal edema - No known history of heart failure. Echo revealed EF 55-60% - likely 2/2 retroperitoneal mass effect on vasculature. - Will monitor I/O Cholelithiasis - RUQ US earlier this week showed small gall stones without evidence of cholecystitis Type II DM, diet controlled - No longer taking medications SAWYER - will order CPAP qHS. HTN - Will continue home medications Insomnia - Will continue home medications Hypothyroidism - Will continue home medications Disposition/LOS: Dispo: Stable Code: Full VTE PPX: Lovenox 40 mg BID w/ cancer
[2019-07-28 06:38] LABS: ALT (SGPT) Less than 7 U/L (8-55); AST (SGOT) 21 U/L (5-34); Albumin 2.9 g/dL (3.5-5.0); Alkaline Phosphatase 84 U/L (40-110); Anion Gap 15 mmol/L (10-20); BUN (Urea Nitrogen) 29 mg/dL (8.4-25.7); Bilirubin, Total 0.5 mg/dL (0.2-1.2); Calc. Creatinine Clearance 129 mL/min (70-130); Calcium 7.7 mg/dL (7.8-10.44); Carbon Dioxide 27 mmol/L (22-29); Chloride 100 mmol/L (98-107); Estimated GFR-MDRD 70; Globulin 2.3 g/dL (2.4-3.5); Glucose 129 mg/dL (70-105); Magnesium 2.1 mg/dL (1.6-2.6); Potassium 4.7 mmol/L (3.5-5.1); Protein, Total 5.2 g/dL (6.0-8.3); Sodium 137 mmol/L (136-145); Uric Acid 11.9 mg/dL (3.5-7.2)
[2019-07-28 06:44] LABS: Phosphorus 5.9 mg/dL (2.3-4.7)
[2019-07-28 07:13] LABS: #Lymphocytes 0.8 thou/uL (1.20-3.40); #Neutrophils 12.7 thou/uL (1.40-6.50); %Basophils 0.3 % (0.0-1.0); %Eosinophils 0.1 % (0.0-10.0); %Lymphocytes 5.3 % (21.0-51.0); %Monocytes 6.7 % (0.0-10.0); %Neutrophils 87.5 % (42.0-75.0)
[2019-07-28] MEDS ORDERED: vinCRIStine Sulfate 2 MG in Sodium Chloride 0.9% 50 ML IVPB SCH (08:30)
[2019-07-28] MEDS: predniSONE 50 MG TAB PO SCH (09:38)
[2019-07-28] MEDS: Allopurinol 300 MG TAB PO SCH (09:40)
[2019-07-28] MEDS: Loratadine 10 MG TAB PO SCH (09:40)
[2019-07-28] MEDS: Polyethylene Glycol 3350 17 GM Packet PO SCH (09:40)
[2019-07-28] MEDS: Senokot S 8.6-50 MG TAB PO SCH ×2 (09:41→21:15)
[2019-07-28] MEDS: Enoxaparin Sodium 40 MG/0.4 ML SYRINGE SC SCH ×2 (09:41→21:15)
[2019-07-28] MEDS: Furosemide 40 MG/4 ML VIAL SLOW IVP SCH (09:41)
[2019-07-28] MEDS: Insulin Glargine 10 UNITS in Pre-Filled Syringe SC SCH (12:08)
--- NOTE | 2019-07-28 12:40 | PRG ---
DATE OF SERVICE: 07/28/2019 ADDENDUM: This is an addendum to the note of Dr. Jamey Mcintosh. Mr. Guzman is a very pleasant 54-year-old man, recently discovered to have B-cell lymphoma. He has already been seen by the Oncology service and was to begin therapy with his first round of CHOP-R 2 days ago. He will be receiving this every three weeks. We are continuing also to manage his pain and will continue to follow with Oncology. Job ID: [id number]
[2019-07-28 14:14] VITALS: BMI 37.5
--- NOTE | 2019-07-28 14:55 | PDOC.MOPN ---
Interval History: more alert today, feels that pain has improved. Dr. Sunshine for assistance with TLS Continue daily labs. - Vital Signs Vital Signs: Vital Signs (12 hours) Temp Pulse Resp BP Pulse Ox 07/28/19 12:30 97.6 F 85 18 102/59 L 94 L 07/28/19 11:36 85 14 94 L 07/28/19 08:00 94 L 07/28/19 07:36 96.8 F L 84 16 118/65 93 L 07/28/19 07:06 96 12 95 07/28/19 07:02 96 12 95 07/28/19 04:01 97.5 F L 85 16 118/67 96 Weight Admit Weight 262 lb 12.8 oz Weight 262 lb - Labs Result Diagrams: 07/28/19 04:37 07/28/19 04:37 Lab results: Laboratory Results - last 24 hr 07/28/19 12:26: POC Glucose 145 H 07/28/19 04:37: Phosphorus 5.9 H 07/28/19 04:37: Lactate Dehydrogenase 362 H 07/28/19 04:37: Sodium 137, Potassium 4.7, Chloride 100, Carbon Dioxide 27, Anion Gap 15, BUN 29 H, Creatinine 1.09, Estimated GFR (MDRD) 70, Glucose 129 H , Uric Acid 11.9 H, Calcium 7.7 L, Magnesium 2.1, Total Bilirubin 0.5, AST 21, ALT Less than 7 L, Alkaline Phosphatase 84, Serum Total Protein 5.2 L, Albumin 2.9 L, Globulin 2.3 L, Albumin/Globulin Ratio 1.3 07/28/19 04:37: WBC 14.5 H, RBC 3.42 L, Hgb 11.2 L, Hct 32.8 L, MCV 95.7, MCH 32.6 H, MCHC 34.1, RDW 15.1 H, Plt Count 438 H, MPV 7.0 L, Neutrophils % 87.5 H , Lymphocytes % 5.3 L, Monocytes % 6.7, Eosinophils % 0.1, Basophils % 0.3, Neutrophils # 12.7 H, Lymphocytes # 0.8 L, Monocytes # 1.0 H, Eosinophils # 0.0 , Basophils # 0.0 07/27/19 21:09: POC Glucose 169 H 07/27/19 15:53: POC Glucose 242 H 07/25/19 12:00: Flow Cytometry Interp A/P - Problem (1) Pleural effusion Current Visit: Yes Code(s): J90 - PLEURAL EFFUSION, NOT ELSEWHERE CLASSIFIED Status: Acute (2) Retroperitoneal mass Current Visit: Yes Code(s): R19.00 - INTRA-ABD AND PELVIC SWELLING, MASS AND LUMP, UNSP SITE Status: Acute (3) Lymphoma malignant, large cell Current Visit: Yes Code(s): C85.80 - [facility] TYPES OF NON-HODGKIN LYMPHOMA, UNSPECIFIED SITE Status: Acute
--- NOTE | 2019-07-28 15:31 | CT ---
CT GUIDED RIGHT ILIAC BONE MARROW ASPIRATION AND BIOPSY: CLINICAL HISTORY: Lymphoma. PROCEDURE: The procedure including the risks and complications were explained to the patient, and informed conse nt was obtained. The patient was placed on the CT scan table in the prone position. General endotracheal anesthesia was performed by the anesthesiology department. Noncontrasted CT images were obtained through the pelvis. An area was marked overlying the RIGHT janessa c bone, and the area was meticulously prepped and draped in usual sterile fashion. The skin and subcutaneous tissues were infiltrated with buffered 1% lidocaine for local anesthesia. After a small skin incision was made, an 11-gauge needle was advanced and positioning was confirmed w ith axial CT images. Approximately 9 milliliters of bone marrow aspirate was obtained. The needle was then further advanced, and a bone marrow biopsy was performed. The needle was removed, and hemost asis was achieved with direct pressure. The patient tolerated the procedure well and without immediate complication. The patient was transported to radiology nurses holding area for further enrique toring prior to discharge. IMPRESSION: Technically successful percutaneous bone marrow aspiration and biopsy. Pathology results are pending. Transcribed Date/Time: 07/28/2019 3:30 PM
--- NOTE | 2019-07-28 16:16 | CON ---
DATE OF CONSULTATION: 07/28/2019 CONSULTING PHYSICIAN: Dr. Gutierrez. REASON FOR CONSULT: Fluid overload and possible tumor lysis syndrome. REASON FOR ADMISSION: Pain. HISTORY OF PRESENT ILLNESS: This is a 54-year-old male with history of obstructive sleep apnea, hypertension, and abdominal mass, came to the hospital with abdominal pain and was found to have B-cell lymphoma, started on chemotherapy, was found to have elevated uric acid and creatinine elevation. He has been treated conservatively with fluids, but he remains fluid overloaded now. Nephrology is consulted for fluid management and also to monitor for possible tumor lysis syndrome. The patient is very lethargic. His daughter is at the bedside. No nausea or vomiting. No chest pain. Not having very good p.o. intake. PAST MEDICAL HISTORY: Positive for hypertension, obstructive sleep apnea, polycythemia, B-cell lymphoma, type 2 diabetes, hypogonadism. PAST SURGICAL HISTORY: Gastric sleeve surgery, left hip and left knee surgery. HOME MEDICATIONS: Reviewed. ALLERGIES: CEFOXITIN, CEFTRIAXONE, FAMILY HISTORY: No history of kidney disease. SOCIAL HISTORY: No alcohol or illicit drug abuse. REVIEW OF SYSTEMS: CONSTITUTIONAL: Negative for weight loss or gain, ability to conduct usual activities. SKIN: Negative for rash, itching. EYES: Negative for double vision, pain. ENT/MOUTH: Negative for nose bleeding, neck stiffness, pain, tenderness. CARDIOVASCULAR: Negative for palpitations, dyspnea on exertion, orthopnea. RESPIRATORY: Negative for shortness of breath, wheezing, cough, hemoptysis, fever or night sweats. GASTROINTESTINAL: Negative for poor appetite, abdominal pain, heartburn, nausea , vomiting, constipation, or diarrhea. GENITOURINARY: Negative for urgency, frequency, dysuria, nocturia. MUSCULOSKELETAL: Negative for pain, swelling. NEUROLOGIC/PSYCHIATRIC: Negative for anxiety, depression. ALLERGY/IMMUNOLOGIC: Negative for skin rash, bleeding tendency. PHYSICAL EXAMINATION: GENERAL: This is a well-built male, in no apparent distress. VITAL SIGNS: Temperature 99.6, pulse 77 to 84, respiratory rate 17, blood pressure 180/65. HEENT: Atraumatic, normocephalic, oral mucosa moist. NECK: Supple. CVS: S1, S2 heard. RESPIRATORY: Clear. GASTROINTESTINAL: Soft, distended MUSCULOSKELETAL: 1 to 2+ edema. DERMATOLOGIC: No skin rash. NEUROLOGIC: Lethargic. LABORATORY DATA: Potassium 4.7, BUN is 29, creatinine 1.09, uric acid is 11.9, calcium is 7.7, magnesium 2.1, albumin is 2.9. ASSESSMENT AND PLAN: 1. Acute kidney injury. He had a bump in creatinine earlier, but is stable. We will monitor. Ideally want to give hydration. Since he is fluid overloaded, we will be gentle with hydration. Plan to reduce IV fluids to 50 mL/h. 2. Possible tumor lysis syndrome- had hyperuricemia and hyperphosphatemia. potassium was also elevated. 3. Potassium stable now. Continue on allopurinol for now. 4. Edema with fluid overload. Plan is to reduce IV fluids. Continue on Lasix. 5. Anemia. 6. B-cell lymphoma. 7. Hypoalbuminemia, moderate. 8. Hypocalcemia. 9. Avoid nephrotoxins. We will continue Lasix at the current dose. We will reduce IV fluids to 50 mL/h and continue on Lasix 40 mg IV daily. Continue allopurinol and we will monitor. Thank you for the consult. Job ID: [id number] MTDD
[2019-07-28] MEDS ORDERED: Lorazepam 1 MG TAB PO SCH (21:00)
[2019-07-28] MEDS: Carvedilol 6.25 MG TAB PO SCH (21:15)
[2019-07-28] MEDS: Levothyroxine Sodium 50 MCG TAB PO SCH (21:15)
[2019-07-28] MEDS: Oxybutynin 5 MG TAB PO PRN (21:15)
[2019-07-28] MEDS: Tamsulosin HCl 0.4 MG CAP PO SCH (21:15)
[2019-07-28] MEDS: Zolpidem Tartrate 5 MG TAB PO PRN (21:15)
[2019-07-28] MEDS: Ezetimibe 10 MG TAB PO SCH (21:15)
[2019-07-28] MEDS: Cyclobenzaprine 10 MG TAB PO SCH (21:16)
[2019-07-28] MEDS: Benzonatate 100 MG CAP PO PRN (21:24)
[2019-07-28] MEDS: HYDROmorphone 10 mg/100 ml CADD IVPB PRN (22:01)
[2019-07-29] MEDS: Acetaminophen 500 MG TAB PO SCH ×4 (03:49→21:26)
--- NOTE | 2019-07-29 06:08 | PDOC.FM ---
- Subjective Subjective: Pt's pain is controlled today. He is currently being titrated off CERTIFIED OPHTHALMIC TECHNICIAN to fentanyl. He has marcial catheter in place. LE edema present. No BM yesterday. Will increase lactulose. - Objective Vital Signs & Weight: Vital Signs (12 hours) Temp Pulse Resp BP BP Pulse Ox 07/29/19 04:00 97.6 F 71 16 127/67 97 07/29/19 00:00 97.4 F L 80 16 125/71 96 07/28/19 21:15 127/68 07/28/19 20:00 97.6 F 97 16 145/80 H 97 07/28/19 19:23 89 16 90 L Weight Admit Weight 119.204 kg Weight 118.841 kg I&O: 07/27/19 07/28/19 07/29/19 06:59 06:59 06:59 Intake Total 7638 570 1706 Output Total 550 4400 3650 Balance 906 -1042 -5840 Result Diagrams: 07/29/19 06:26 07/29/19 06:26 Phys Exam - Physical Examination Constitutional: NAD HEENT: PERRLA, sclera anicteric Respiratory: no wheezing, no rales, clear to auscultation bilateral Cardiovascular: RRR, no significant murmur Gastrointestinal: soft, non-tender, positive bowel sounds distention present Musculoskeletal: pulses present 1 + Pitting Edema Neurological: non-focal, normal sensation Psychiatric: normal affect, A&O x 3 Dx/Plan (1) Pleural effusion Code(s): J90 - PLEURAL EFFUSION, NOT ELSEWHERE CLASSIFIED Status: Acute (2) Retroperitoneal mass Code(s): R19.00 - INTRA-ABD AND PELVIC SWELLING, MASS AND LUMP, UNSP SITE Status: Acute (3) Acquired polycythemia Code(s): D75.1 - SECONDARY POLYCYTHEMIA Status: Acute (4) Borderline diabetes mellitus Code(s): R73.03 - PREDIABETES Status: Acute (5) HLD (hyperlipidemia) Code(s): E78.5 - HYPERLIPIDEMIA, UNSPECIFIED Status: Chronic (6) HTN (hypertension) Code(s): I10 - ESSENTIAL (PRIMARY) HYPERTENSION Status: Chronic - Plan Plan: B Cell Lymphoma - R retroperitoneal mass - Onc jc on board, Dr. Gutierrez and Sania Khanna. Mediport placed - CHOPR , vincristine initiated. He will remain in hospital for first cycle to help reduce size, reduce pain so he does not need CERTIFIED OPHTHALMIC TECHNICIAN pump. - pt has high pain burden from mass, likely mass effect, making daily activities difficult. - anesthesia for pain control Leukocytosis - Will assess for signs of infection, pt afebrile overnight. Possibly 2/2 chemotherapy. Tumor Lysis Syndrome Hyperkalemia - WNL Hyperphosphatemia Hyperuricemia - Likely 2/2 tumor lysis syndrome from first dose of CHOPR - Oncology consulted, Placed pt on NS @ 50 ml/hr and continued lasix. - continue allopurinol - monitor R large pleural effusion, recurrent, stable - Dr. Charles following and will not proceed with 2nd thoracentesis - contributing to pt's oxygen requirement Tachycardia w/ oxygen requirement - continue to monitor Constipation - resolved - lactulose prn - continue daily prophylactic medications Urinary Retention - Marcial catheter placed. - Dr. Abreu initiated oxybutynin, flomax. Marcial catheter placed. Failed first voiding trial. Likely 2/2 BPH or constipation, opioid requirement. Bilateral lower extremity edema, Abdominal edema - No known history of heart failure. Echo revealed EF 55-60% - likely 2/2 retroperitoneal mass effect on vasculature. - Will monitor I/O Cholelithiasis - RUQ US earlier this week showed small gall stones without evidence of cholecystitis Type II DM, diet controlled - No longer taking medications SAWYER - CPAP qHS. HTN - Will continue home medications Insomnia - Will continue home medications Hypothyroidism - Will continue home medications Disposition/LOS: Dispo: Stable, will be hospitalized until end of first chemotherapy round Code: Full VTE PPX: Lovenox 40 mg BID w/ cancer
[2019-07-29 07:01] LABS: ALT (SGPT) Less than 7 U/L (8-55); AST (SGOT) 15 U/L (5-34); Alkaline Phosphatase 79 U/L (40-110); Anion Gap 11 mmol/L (10-20); BUN (Urea Nitrogen) 23 mg/dL (8.4-25.7); Bilirubin, Total 0.5 mg/dL (0.2-1.2); Calc. Creatinine Clearance 198 mL/min (70-130); Calcium 8.1 mg/dL (7.8-10.44); Carbon Dioxide 30 mmol/L (22-29); Chloride 104 mmol/L (98-107); Estimated GFR-MDRD Greater than 90; Globulin 2.2 g/dL (2.4-3.5); Glucose 111 mg/dL (70-105); Magnesium 2.3 mg/dL (1.6-2.6); Potassium 4.6 mmol/L (3.5-5.1); Protein, Total 5.2 g/dL (6.0-8.3); Sodium 140 mmol/L (136-145); Uric Acid 9.5 mg/dL (3.5-7.2)
[2019-07-29 07:29] LABS: #Basophils 0.1 thou/uL (0.0-0.2); #Lymphocytes 0.7 thou/uL (1.20-3.40); #Monocytes 0.8 thou/uL (0.11-0.59); #Neutrophils 10.5 thou/uL (1.40-6.50); %Basophils 0.4 % (0.0-1.0); %Eosinophils 0.1 % (0.0-10.0); %Lymphocytes 5.7 % (21.0-51.0); %Monocytes 6.7 % (0.0-10.0); %Neutrophils 87.1 % (42.0-75.0); Hemoglobin 11.4 g/dL (14.0-18.0); Mean Corpuscular HGB CONC 34.4 g/dL (32.0-36.0); Mean Corpuscular Hemoglobin 32.9 pg (27.0-31.0); Mean Corpuscular Volume 95.5 fL (78.0-98.0); Platelet Count 420 thou/uL (130-400); RBC Distribution Width 14.9 % (11.5-14.5); Red Blood Cell (RBC) Count 3.45 mill/uL (4.70-6.10); White Blood Cell (WBC) Count 12.1 thou/uL (4.8-10.8)
[2019-07-29] MEDS: Sodium Chloride 0.9% 1,000 ML IV SCH ×2 (07:36→09:00)
--- NOTE | 2019-07-29 08:15 | PDOC.MOPN ---
Interval History: pain stable, maybe slightly better. he has had more anxiety but is walking in the halls more as well. swelling better but still evident - Vital Signs Vital Signs: Vital Signs (12 hours) Temp Pulse Resp BP BP Pulse Ox 07/29/19 07:16 97.3 F L 67 16 122/65 98 07/29/19 04:00 97.6 F 71 16 127/67 97 07/29/19 00:00 97.4 F L 80 16 125/71 96 07/28/19 21:15 127/68 Weight Admit Weight 262 lb 12.8 oz Weight 262 lb - Physical Exam General: Oriented x3 HEENT: Atraumatic Lungs: Clear to auscultation Cardiovascular: Regular rate Abdomen: Other (+ distension and anasarca noted) Extremities: No clubbing, Other (2-3+ edema letha) Neurological: Normal speech Psych/Mental Status: Mental status NL - Labs Result Diagrams: 07/29/19 06:26 07/29/19 06:26 Lab results: Laboratory Results - last 24 hr 07/29/19 06:26: Phosphorus 4.0 07/29/19 06:26: Lactate Dehydrogenase 288 H 07/29/19 06:26: Sodium 140, Potassium 4.6, Chloride 104, Carbon Dioxide 30 H, Anion Gap 11, BUN 23, Creatinine 0.71, Estimated GFR (MDRD) Greater than 90, Glucose 111 H, Uric Acid 9.5 H, Calcium 8.1, Magnesium 2.3, Total Bilirubin 0.5 , AST 15, ALT Less than 7 L, Alkaline Phosphatase 79, Serum Total Protein 5.2 L , Albumin 3.0 L, Globulin 2.2 L, Albumin/Globulin Ratio 1.4 07/29/19 06:26: WBC 12.1 H, RBC 3.45 L, Hgb 11.4 L, Hct 33.0 L, MCV 95.5, MCH 32.9 H, MCHC 34.4, RDW 14.9 H, Plt Count 420 H, MPV 7.0 L, CBC Comment Cold Agglutinin, Neutrophils % 87.1 H, Lymphocytes % 5.7 L, Monocytes % 6.7, Eosinophils % 0.1, Basophils % 0.4, Neutrophils # 10.5 H, Lymphocytes # 0.7 L, Monocytes # 0.8 H, Eosinophils # 0.0, Basophils # 0.1 07/28/19 20:43: POC Glucose 124 H 07/28/19 16:28: POC Glucose 159 H 07/28/19 12:26: POC Glucose 145 H 07/25/19 12:00: Flow Cytometry Interp A/P - Problem (1) Lymphoma malignant, large cell Current Visit: Yes Code(s): C85.80 - OTH TYPES OF NON-HODGKIN LYMPHOMA, UNSPECIFIED SITE Status: Acute (2) Pleural effusion Current Visit: Yes Code(s): J90 - PLEURAL EFFUSION, NOT ELSEWHERE CLASSIFIED Status: Acute (3) Retroperitoneal mass Current Visit: Yes Code(s): R19.00 - INTRA-ABD AND PELVIC SWELLING, MASS AND LUMP, UNSP SITE Status: Acute (4) SBO (small bowel obstruction) Current Visit: No Code(s): K56.609 - UNSP INTESTNL OBST, UNSP TO PARTIAL VERSUS COMPLETE OBST Status: Acute (5) Anasarca Current Visit: Yes Code(s): R60.1 - GENERALIZED EDEMA Status: Acute - Plan Plan: 1. continue diuresis, possibly stop IVF. appreciate nephrology help 2. ambulate 3. cont fenatnyl patch, try to get off dilaudid home visitor 4. follow cbc and electrolytes, UA better
[2019-07-29] MEDS: Fluticasone Propionate Nasal Spray 16 gm Bottle NASAL PRN (10:23)
[2019-07-29] MEDS: Benzonatate 100 MG CAP PO PRN ×2 (10:24→21:28)
[2019-07-29] MEDS: Loratadine 10 MG TAB PO SCH (10:24)
[2019-07-29] MEDS: Furosemide 40 MG/4 ML VIAL SLOW IVP SCH (10:24)
[2019-07-29] MEDS: Enoxaparin Sodium 40 MG/0.4 ML SYRINGE SC SCH ×2 (10:25→21:28)
[2019-07-29] MEDS: Senokot S 8.6-50 MG TAB PO SCH ×2 (10:25→21:28)
[2019-07-29] MEDS: Allopurinol 300 MG TAB PO SCH (10:25)
[2019-07-29] MEDS: Insulin Glargine 10 UNITS in Pre-Filled Syringe SC SCH (10:26)
[2019-07-29] MEDS: Polyethylene Glycol 3350 17 GM Packet PO SCH (10:26)
[2019-07-29] MEDS: predniSONE 50 MG TAB PO SCH (10:27)
--- NOTE | 2019-07-29 11:43 | PRG ---
DATE OF SERVICE: 07/29/2019 Mr. Guzman is undergoing chemotherapy and is having some agitation from the steroids. We will administer Ativan 1 mg every 4 hours p.r.n. agitation. We will continue to follow with Oncology. Job ID: [id number] MTDD
[2019-07-29] MEDS: Lorazepam 2 MG/ML VIAL SLOW IVP PRN ×3 (12:08→21:30)
[2019-07-29] MEDS: Oxybutynin 5 MG TAB PO PRN ×2 (13:11→21:29)
--- NOTE | 2019-07-29 17:42 | PRG ---
DATE OF SERVICE: 07/29/2019 SUBJECTIVE: The patient was seen and examined at bedside and overnight events noted. The patient denies any shortness of breath or chest pain or palpitation. No history of nausea or vomiting or diarrhea or fever or chills or cramps. OBJECTIVE: GENERAL: This is a well-built male, in no apparent distress. VITAL SIGNS: Temperature 98.3. Heart rate 90. Respiratory rate 16. Blood pressure 119/58. HEENT: Atraumatic, normocephalic. Oral mucosa is moist NECK: Supple. CARDIOVASCULAR: S1, S2 heard. Rate and rhythm regular. RESPIRATORY: Clear to auscultation. GASTROINTESTINAL: Abdomen is soft. MUSCULOSKELETAL: No tenderness. No edema. DERMATOLOGIC: No skin rash. NEUROLOGIC: Alert and awake and oriented X3. No focal neurologic deficits. Moving all the extremities. PSYCHIATRIC: Mood and affect normal. LABORATORY DATA: Potassium is 4.6, BUN is 23, creatinine is 0.7, uric acid is 9.5, calcium is 8.1, and phosphorus is 4.0. ASSESSMENT AND PLAN: 1. Acute kidney injury, seems to be getting better. The patient is feeling better. 2. Fluid overload. We will continue on Lasix. 3. Possible tumor lysis syndrome, seems to be getting better. Plan is to continue on hydration as tolerated. 4. We will continue on NS at 50 mL/hour. 5. B-cell lymphoma. 6. Hypocalcemia. 7. Hypoalbuminemia, moderated. Plan to continue NS at 50 mL/hour and also Lasix. The patient is feeling better. He had -3.4 L of urine yesterday and -3.4 L today too. We will continue to follow. Advised nurse to flush the Kaur catheter too given the increased sediments. Job ID: [id number]
[2019-07-29] MEDS: Cyclobenzaprine 10 MG TAB PO SCH (18:55)
[2019-07-29] MEDS: Tamsulosin HCl 0.4 MG CAP PO SCH (21:29)
[2019-07-29] MEDS: Ezetimibe 10 MG TAB PO SCH (21:29)
[2019-07-29] MEDS: Levothyroxine Sodium 50 MCG TAB PO SCH (21:29)
[2019-07-29] MEDS: Carvedilol 6.25 MG TAB PO SCH (21:29)
[2019-07-29] MEDS: Zolpidem Tartrate 5 MG TAB PO PRN (21:29)
[2019-07-29] MEDS: diphenhydrAMINE 25 MG CAP PO PRN (21:30)
[2019-07-30] MEDS: Sodium Chloride 0.9% 1,000 ML IV SCH (02:30)
[2019-07-30] MEDS: Acetaminophen 500 MG TAB PO SCH ×4 (02:54→21:21)
[2019-07-30 05:32] LABS: Phosphorus 3.4 mg/dL (2.3-4.7)
[2019-07-30 05:36] LABS: ALT (SGPT) Less than 7 U/L (8-55); AST (SGOT) 18 U/L (5-34); Albumin 2.8 g/dL (3.5-5.0); Alkaline Phosphatase 80 U/L (40-110); Anion Gap 10 mmol/L (10-20); BUN (Urea Nitrogen) 21 mg/dL (8.4-25.7); Bilirubin, Total 0.5 mg/dL (0.2-1.2); Calc. Creatinine Clearance 213 mL/min (70-130); Calcium 7.9 mg/dL (7.8-10.44); Carbon Dioxide 30 mmol/L (22-29); Chloride 104 mmol/L (98-107); Estimated GFR-MDRD Greater than 90; Globulin 1.9 g/dL (2.4-3.5); Glucose 101 mg/dL (70-105); Magnesium 2.2 mg/dL (1.6-2.6); Protein, Total 4.7 g/dL (6.0-8.3); Sodium 140 mmol/L (136-145); Uric Acid 7.5 mg/dL (3.5-7.2)
[2019-07-30 05:58] LABS: #Lymphocytes 0.7 thou/uL (1.20-3.40); #Monocytes 0.4 thou/uL (0.11-0.59); #Neutrophils 11.9 thou/uL (1.40-6.50); %Eosinophils 0.1 % (0.0-10.0); %Lymphocytes 5.2 % (21.0-51.0); %Monocytes 3.2 % (0.0-10.0); %Neutrophils 91.6 % (42.0-75.0); Hemoglobin 10.8 g/dL (14.0-18.0); Mean Corpuscular HGB CONC 32.9 g/dL (32.0-36.0); Mean Corpuscular Hemoglobin 31.8 pg (27.0-31.0); Mean Corpuscular Volume 96.6 fL (78.0-98.0); Mean Platelet Volume 6.6 fL (7.4-10.4); Platelet Count 396 thou/uL (130-400); RBC Distribution Width 14.6 % (11.5-14.5)
--- NOTE | 2019-07-30 06:28 | PDOC.FM ---
- Subjective Subjective: Pt is fairly unchanged today. Continue chemotherapy. He has LE edema now weeping w/o signs of infection. He has erythema at penis 2/2 catheter. - Objective Vital Signs & Weight: Vital Signs (12 hours) Temp Pulse Resp BP BP Pulse Ox 07/30/19 04:00 97.3 F L 74 20 110/61 92 L 07/30/19 00:00 97.6 F 80 16 133/69 96 07/29/19 21:29 127/68 07/29/19 20:00 98.4 F 97 16 147/78 H 94 L Weight Admit Weight 119.204 kg Weight 118.841 kg I&O: 07/28/19 07/29/19 07/30/19 06:59 06:59 06:59 Intake Total 935 1541 800 Output Total 4400 6542 4200 Balance -1176 -5845 -8448 Result Diagrams: 07/30/19 04:45 07/30/19 04:45 Phys Exam - Physical Examination Constitutional: NAD HEENT: PERRLA, moist MMs Respiratory: no wheezing, no rales, clear to auscultation bilateral Cardiovascular: RRR, no significant murmur Gastrointestinal: soft, non-tender, positive bowel sounds Distended, Trace edema Musculoskeletal: pulses present 2+ pitting edema, blisters and weeping Neurological: normal sensation, moves all 4 limbs Psychiatric: normal affect, A&O x 3 Dx/Plan (1) Pleural effusion Code(s): J90 - PLEURAL EFFUSION, NOT ELSEWHERE CLASSIFIED Status: Acute (2) Retroperitoneal mass Code(s): R19.00 - INTRA-ABD AND PELVIC SWELLING, MASS AND LUMP, UNSP SITE Status: Acute (3) Acquired polycythemia Code(s): D75.1 - SECONDARY POLYCYTHEMIA Status: Acute (4) Borderline diabetes mellitus Code(s): R73.03 - PREDIABETES Status: Acute (5) HLD (hyperlipidemia) Code(s): E78.5 - HYPERLIPIDEMIA, UNSPECIFIED Status: Chronic (6) HTN (hypertension) Code(s): I10 - ESSENTIAL (PRIMARY) HYPERTENSION Status: Chronic - Plan Plan: B Cell Lymphoma - R retroperitoneal mass - continue chemotherapy - appreciate Oncology - started on prednisone, given ativan to help with symptoms - neg B Cell Lymphoma in bone marrow Leukocytosis - Will assess for signs of infection, pt afebrile overnight. Possibly 2/2 chemotherapy. Tumor Lysis Syndrome Hyperkalemia - WNL Hyperphosphatemia Hyperuricemia - Likely 2/2 tumor lysis syndrome from first dose of CHOPR - Oncology, nephro consulted, Placed pt on NS @ 50 ml/hr and continue lasix. - continue allopurinol - monitor Constipation - lactulose prn - continue daily prophylactic medications Kaur Catheter Penile Pain - try barrier cream R large pleural effusion, recurrent, stable - contributing to pt's oxygen requirement Tachycardia w/ oxygen requirement - continue to monitor Urinary Retention - unchanged - Kaur catheter placed. - Dr. Abreu initiated oxybutynin, flomax. Kaur catheter placed. Failed first voiding trial. Likely 2/2 BPH or constipation, opioid requirement. Bilateral lower extremity edema, Abdominal edema - No known history of heart failure. Echo revealed EF 55-60% - likely 2/2 retroperitoneal mass effect on vasculature. - Will monitor I/O Cholelithiasis - RUQ US earlier this week showed small gall stones without evidence of cholecystitis Type II DM, diet controlled - No longer taking medications SAWYER - CPAP qHS. HTN - Will continue home medications Insomnia - Will continue home medications Hypothyroidism - Will continue home medications Disposition/LOS: Dispo: Stable, will be hospitalized until end of first chemotherapy round Code: Full VTE PPX: Lovenox 40 mg BID w/ cancer
[2019-07-30] MEDS: Allopurinol 300 MG TAB PO SCH (08:59)
[2019-07-30] MEDS: Furosemide 40 MG/4 ML VIAL SLOW IVP SCH (09:02)
[2019-07-30] MEDS: Enoxaparin Sodium 40 MG/0.4 ML SYRINGE SC SCH ×2 (09:02→21:25)
[2019-07-30] MEDS: Insulin Glargine 10 UNITS in Pre-Filled Syringe SC SCH (09:03)
[2019-07-30] MEDS: Loratadine 10 MG TAB PO SCH (09:03)
[2019-07-30] MEDS: predniSONE 50 MG TAB PO SCH (09:04)
[2019-07-30] MEDS: Polyethylene Glycol 3350 17 GM Packet PO SCH (09:04)
[2019-07-30] MEDS: Senokot S 8.6-50 MG TAB PO SCH ×2 (09:05→21:26)
[2019-07-30] MEDS: fentaNYL 50 mcg/hour Patch TD SCH (09:23)
[2019-07-30] MEDS: Lorazepam 2 MG/ML VIAL SLOW IVP PRN ×3 (10:53→21:34)
--- NOTE | 2019-07-30 11:28 | PRG ---
DATE OF SERVICE: 07/30/2019 ADDENDUM: Mr. Guzman continues to undergo chemotherapy. The Ativan did help with his agitation from the steroids. He has developed some peripheral edema with weeping and we will start a low dose of Lasix. This is likely stasis dermatitis. Otherwise, no new complaints from the patient, who is awake and alert. Job ID: [id number]
--- NOTE | 2019-07-30 11:52 | PRG ---
DATE OF SERVICE: 07/30/2019 SUBJECTIVE: Patient was seen and examined at bedside and overnight events noted. Patient denies any shortness of breath or chest pain or palpitation. No history of nausea or vomiting or diarrhea or fever or chills or cramps. OBJECTIVE: GENERAL: This is a well-built male, in no apparent distress. VITAL SIGNS: Temperature 97.7. Heart rate 70. Respiratory rate 18. Blood pressure 113/65. HEENT: Atraumatic, normocephalic. Oral mucosa is moist NECK: Supple. CARDIOVASCULAR: S1, S2 heard. Rate and rhythm regular. RESPIRATORY: Clear to auscultation. GASTROINTESTINAL: Abdomen is soft. MUSCULOSKELETAL: No tenderness. 2+ edema. DERMATOLOGIC: No skin rash. NEUROLOGIC: Alert and awake and oriented X3. No focal neurologic deficits. Moving all the extremities. PSYCHIATRIC: Mood and affect normal. LABORATORY DATA: Potassium is 4.0, BUN is 21, and creatinine is 0.6. Uric acid is 7.5 and phosphorus is 3.4. ASSESSMENT AND PLAN: 1. Acute kidney injury much better, back to baseline. 2. Fluid overload. We will stop fluids and continue on Lasix for now. 3. Increase risk of tumor lysis syndrome. Uric acid and phosphorus are getting better. We will watch. We will stop IV fluids for now given his edema and anasarca. 4. B-cell lymphoma. Follow with Oncology. 5. Hypocalcemia. 6. Hypoalbuminemia. 7. Anemia. We will stop IV fluids. Continue Lasix. Monitor urine output closely. We will follow. Thank you for the consult. Job ID: [id number]
--- NOTE | 2019-07-30 11:52 | PDOC.MOPN ---
Interval History: pain controlled, complains of anxiety from steroids - Vital Signs Vital Signs: Vital Signs (12 hours) Temp Pulse Resp BP Pulse Ox 07/30/19 07:46 97.7 F 70 18 113/65 95 07/30/19 07:26 96 07/30/19 07:23 74 16 96 07/30/19 04:00 97.3 F L 74 20 110/61 92 L 07/30/19 00:00 97.6 F 80 16 133/69 96 Weight Admit Weight 262 lb 12.8 oz Weight 262 lb - Physical Exam General: Alert, Oriented x3, No acute distress - Labs Result Diagrams: 07/30/19 04:45 07/30/19 04:45 Lab results: Laboratory Results - last 24 hr 07/30/19 10:57: POC Glucose 97 07/30/19 04:45: Phosphorus 3.4 07/30/19 04:45: Lactate Dehydrogenase 237 H 07/30/19 04:45: Sodium 140, Potassium 4.0, Chloride 104, Carbon Dioxide 30 H, Anion Gap 10, BUN 21, Creatinine 0.66 L, Estimated GFR (MDRD) Greater than 90, Glucose 101, Uric Acid 7.5 H, Calcium 7.9, Magnesium 2.2, Total Bilirubin 0.5, AST 18, ALT Less than 7 L, Alkaline Phosphatase 80, Serum Total Protein 4.7 L, Albumin 2.8 L, Globulin 1.9 L, Albumin/Globulin Ratio 1.5 07/30/19 04:45: WBC 13.0 H, RBC 3.40 L, Hgb 10.8 L, Hct 32.9 L, MCV 96.6, MCH 31.8 H, MCHC 32.9, RDW 14.6 H, Plt Count 396, MPV 6.6 L, Neutrophils % 91.6 H, Lymphocytes % 5.2 L, Monocytes % 3.2, Eosinophils % 0.1, Basophils % 0.0, Neutrophils # 11.9 H, Lymphocytes # 0.7 L, Monocytes # 0.4, Eosinophils # 0.0, Basophils # 0.0 07/29/19 20:53: POC Glucose 136 H 07/29/19 16:31: POC Glucose 142 H 07/29/19 12:39: POC Glucose 125 H Status: lab reviewed by me A/P - Problem (1) Pleural effusion Current Visit: Yes Code(s): J90 - PLEURAL EFFUSION, NOT ELSEWHERE CLASSIFIED Status: Acute (2) Retroperitoneal mass Current Visit: Yes Code(s): R19.00 - INTRA-ABD AND PELVIC SWELLING, MASS AND LUMP, UNSP SITE Status: Acute (3) Lymphoma malignant, large cell Current Visit: Yes Code(s): C85.80 - OTH TYPES OF NON-HODGKIN LYMPHOMA, UNSPECIFIED SITE Status: Acute - Plan Plan: stop steroids if possible, 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
[2019-07-30] MEDS: HYDROmorphone 10 mg/100 ml CADD IVPB PRN (14:28)
[2019-07-30] MEDS: Oxybutynin 5 MG TAB PO PRN (14:36)
--- NOTE | 2019-07-30 14:42 | PRG ---
DATE OF SERVICE: 07/29/2019 SUBJECTIVE: The patient states he is feeling okay. He is still a bit tired and run down. His pain in his right flank has significantly decreased. He has been receiving CHOP chemotherapy with significant tumor lysis syndrome. It is still questionable whether or not he is going to receive any palliative radiation to the mass. They have began aggressive diuresis with both Lasix and IV hydration to prevent uric acid buildup. The patient was unable to void from my last visit with him, and had to have his catheter replaced. He has had his indwelling catheter since then. He has resumed using his oxybutynin secondary to avoidance of bladder spasms with the indwelling catheter. OBJECTIVE: VITAL SIGNS: Temperature 98.4, pulse 97, blood pressure 147/78, saturations 94% on 2 L nasal cannula, and respirations 16. GENERAL: No apparent distress. Communicative and alert. CARDIOVASCULAR: Regular rate and rhythm. ABDOMEN: Soft, protuberant, less tender to palpation on the right. No suprapubic tenderness. : Kaur catheter in place, draining clear yellow urine. EXTREMITIES: 1+ edema bilaterally. LABORATORY EVALUATION: Full set of labs are in the [facility] [facility] system, which I have reviewed. Of note, the patient's hemoglobin is 11.4 with a creatinine of 0.66. ASSESSMENT AND PLAN: A 54-year-old white male with B-cell lymphoma, currently undergoing chemotherapy with tumor lysis syndrome and aggressive diuresis. He had urinary retention with ability to void, but significantly elevated postvoid residuals, requiring replacement of the Kaur catheter. I do suspect that the large portion of his urinary retention is secondary to debilitation and is compounded by his benign prostatic hyperplasia. Since he is receiving aggressive diuresis at this time, I do think he should keep his indwelling Kaur catheter in. Once diuresis has ended, options are to either switch to intermittent catheterization to decrease in risk of urinary tract infection or he may continue to resume his indwelling catheter. At this point, I would not recommend removal of the catheter until he gains a significant strength as he will likely have persistent urinary retention as he did before. If the patient undergoes enough physical therapy and regains his strength, is having good bowel movements, and has remained on his Flomax, I think we can attempt another voiding trial. At which time if he is able to urinate adequately, then the catheter can be left out. Ultimately, if the patient is not able to get out of urinary retention in the future, we can always discuss transurethral resection of the prostate or UroLift once he has completed with chemotherapy to allow for the patient to resume normal voiding. Job ID: [id number]
[2019-07-30] MEDS: Levothyroxine Sodium 50 MCG TAB PO SCH (21:21)
[2019-07-30] MEDS: Cyclobenzaprine 10 MG TAB PO SCH (21:22)
[2019-07-30] MEDS: Famotidine 20 MG TAB PO SCH (21:22)
[2019-07-30] MEDS: Ezetimibe 10 MG TAB PO SCH (21:23)
[2019-07-30] MEDS: Carvedilol 6.25 MG TAB PO SCH (21:24)
[2019-07-30] MEDS: Tamsulosin HCl 0.4 MG CAP PO SCH (21:25)
[2019-07-31] MEDS: Acetaminophen 500 MG TAB PO SCH ×4 (02:24→20:54)
--- NOTE | 2019-07-31 05:54 | PDOC.FM ---
- Subjective Subjective: Pt is doing well today. He was d/c from steroids due to anxiety. He is not having anxiety at this time. He is duiresing well. Pain is well controlled and he is needing less MANAGER ERP. - Objective Vital Signs & Weight: Vital Signs (12 hours) Temp Pulse Resp BP BP Pulse Ox 07/31/19 04:00 98.5 F 80 16 125/61 93 L 07/30/19 23:13 97.7 F 101 H 16 134/96 H 94 L 07/30/19 21:24 142/81 H 07/30/19 19:43 98.5 F 81 16 142/81 H 92 L 07/30/19 18:53 81 16 92 L Weight Admit Weight 119.204 kg Weight 118.841 kg I&O: 07/29/19 07/30/19 07/31/19 06:59 06:59 06:59 Intake Total 8793 308 2093 Output Total 5025 4200 8480 Balance -7075 -7486 -4209 Result Diagrams: 07/31/19 05:23 07/31/19 05:23 Phys Exam - Physical Examination Constitutional: NAD HEENT: PERRLA, moist MMs Neck: no JVD, full ROM Respiratory: no wheezing, no rales, clear to auscultation bilateral Cardiovascular: RRR, no significant murmur Gastrointestinal: soft, non-tender, positive bowel sounds mild distention Musculoskeletal: pulses present 2+ pitting edema Neurological: normal sensation, moves all 4 limbs Psychiatric: normal affect, A&O x 3 Dx/Plan (1) Pleural effusion Code(s): J90 - PLEURAL EFFUSION, NOT ELSEWHERE CLASSIFIED Status: Acute (2) Retroperitoneal mass Code(s): R19.00 - INTRA-ABD AND PELVIC SWELLING, MASS AND LUMP, UNSP SITE Status: Acute (3) Acquired polycythemia Code(s): D75.1 - SECONDARY POLYCYTHEMIA Status: Acute (4) Borderline diabetes mellitus Code(s): R73.03 - PREDIABETES Status: Acute (5) HLD (hyperlipidemia) Code(s): E78.5 - HYPERLIPIDEMIA, UNSPECIFIED Status: Chronic (6) HTN (hypertension) Code(s): I10 - ESSENTIAL (PRIMARY) HYPERTENSION Status: Chronic - Plan Plan: 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 Possibly 2/2 chemotherapy. Tumor Lysis Syndrome Hyperkalemia - WNL Hyperphosphatemia Hyperuricemia - Likely 2/2 tumor lysis syndrome from CHOPR - Oncology, nephro consulted, Placed pt on NS @ 50 ml/hr and increase lasix. - continue allopurinol - monitor Constipation - 1 satisfying BM on 07/30/19 - lactulose prn - continue daily prophylactic medications Kaur Catheter Penile Pain - barrier cream R large pleural effusion, recurrent, stable - contributing to pt's oxygen requirement Tachycardia w/ oxygen requirement - continue to monitor Urinary Retention - unchanged - Kaur catheter placed. - Dr. Abreu initiated oxybutynin, flomax. Kaur catheter placed. Failed first voiding trial. Likely 2/2 BPH or constipation, opioid requirement. Bilateral lower extremity edema, Abdominal edema - No known history of heart failure. Echo revealed EF 55-60% - likely 2/2 retroperitoneal mass effect on vasculature. - Will monitor I/O Cholelithiasis - RUQ US earlier this week showed small gall stones without evidence of cholecystitis Type II DM, diet controlled - No longer taking medications SAWYER - CPAP qHS. HTN - Will continue home medications Insomnia - Will continue home medications Hypothyroidism - Will continue home medications Disposition/LOS: Dispo: Stable, will be hospitalized until end of first chemotherapy round Code: Full VTE PPX: Lovenox 40 mg BID w/ cancer
[2019-07-31 05:55] LABS: Phosphorus 3.3 mg/dL (2.3-4.7)
[2019-07-31 06:05] LABS: ALT (SGPT) Less than 7 U/L (8-55); AST (SGOT) 16 U/L (5-34); Albumin 2.9 g/dL (3.5-5.0); Alkaline Phosphatase 88 U/L (40-110); Anion Gap 10 mmol/L (10-20); BUN (Urea Nitrogen) 18 mg/dL (8.4-25.7); Calc. Creatinine Clearance 216 mL/min (70-130); Calcium 8.2 mg/dL (7.8-10.44); Carbon Dioxide 30 mmol/L (22-29); Chloride 103 mmol/L (98-107); Estimated GFR-MDRD Greater than 90; Glucose 96 mg/dL (70-105); Magnesium 2.1 mg/dL (1.6-2.6); Protein, Total 4.9 g/dL (6.0-8.3); Sodium 139 mmol/L (136-145); Uric Acid 6.3 mg/dL (3.5-7.2)
[2019-07-31 06:22] LABS: Hemoglobin 11.3 g/dL (14.0-18.0); Mean Corpuscular Volume 94.5 fL (78.0-98.0)
[2019-07-31 06:28] LABS: Bilirubin, Total 0.4 mg/dL (0.2-1.2)
[2019-07-31 07:28] LABS: Band 5 % (5-11); Lymphocytes 6 % (21-51); Monocytes 3 % (0-10); Neutrophil 86 % (42-75)
[2019-07-31 07:30] LABS: Polychromasia SLIGHT = 2-3 cells (100X) (0-2/hpf); Vacuoles SLIGHT
[2019-07-31] MEDS: HYDROmorphone 10 mg/100 ml CADD IVPB PRN (07:59)
[2019-07-31] MEDS: Senokot S 8.6-50 MG TAB PO SCH ×2 (08:05→20:56)
[2019-07-31] MEDS: Famotidine 20 MG TAB PO SCH ×2 (08:05→20:56)
[2019-07-31] MEDS: Polyethylene Glycol 3350 17 GM Packet PO SCH (08:06)
[2019-07-31] MEDS: Allopurinol 300 MG TAB PO SCH (08:06)
[2019-07-31] MEDS: Loratadine 10 MG TAB PO SCH (08:06)
[2019-07-31] MEDS: Ondansetron PF 4 MG/2 ML Vial IVP PRN (08:07)
[2019-07-31] MEDS: Enoxaparin Sodium 40 MG/0.4 ML SYRINGE SC SCH ×2 (08:07→20:56)
[2019-07-31] MEDS: predniSONE 50 MG TAB PO SCH (08:07)
[2019-07-31] MEDS: Insulin Glargine 10 UNITS in Pre-Filled Syringe SC SCH (08:08)
[2019-07-31] MEDS: Lorazepam 2 MG/ML VIAL SLOW IVP PRN ×3 (08:08→20:46)
[2019-07-31] MEDS: Furosemide 40 MG/4 ML VIAL SLOW IVP SCH ×2 (08:08→14:46)
[2019-07-31 08:44] LABS: White Blood Cell (WBC) Count 17.7 thou/uL (4.8-10.8)
[2019-07-31 08:47] LABS: Mean Corpuscular HGB CONC 32.7 g/dL (32.0-36.0); Mean Corpuscular Hemoglobin 31.7 pg (27.0-31.0)
[2019-07-31 08:48] LABS: Mean Platelet Volume 6.5 fL (7.4-10.4); Platelet Count 406 thou/uL (130-400); RBC Distribution Width 14.7 % (11.5-14.5)
[2019-07-31 09:57] LABS: MDiff Complete? YES
--- NOTE | 2019-07-31 11:32 | PRG ---
DATE OF SERVICE: 07/31/2019 Mr. Guzman is feeling better this morning. He has gotten off about 8 to 10 L of fluids over the last 48 hours. He still has some peripheral edema, but this has improved. We are still following with the Oncology Service. His steroids have been discontinued and his anxiety levels are much reduced. We will continue to follow with Oncology. Job ID: [id number]
--- NOTE | 2019-07-31 11:41 | PRG ---
DATE OF SERVICE: 07/31/2019 SUBJECTIVE: Patient was seen and examined at bedside and overnight events noted. Patient denies any shortness of breath or chest pain or palpitation. No history of nausea or vomiting or diarrhea or fever or chills or cramps. OBJECTIVE: GENERAL: This is a well-built male, in no acute distress. VITAL SIGNS: Temperature 98.3, pulse 82, respiratory rate 16, blood pressure 124/62. HEENT: Atraumatic, normocephalic. Oral mucosa is moist NECK: Supple. CARDIOVASCULAR: S1, S2 heard. Rate and rhythm regular. RESPIRATORY: Clear to auscultation. GASTROINTESTINAL: Abdomen is soft. MUSCULOSKELETAL: No tenderness. No edema. DERMATOLOGIC: No skin rash. NEUROLOGIC: Alert and awake and oriented X3. No focal neurologic deficits. Moving all the extremities. PSYCHIATRIC: Mood and affect normal. LABORATORY DATA: Potassium 4.0, BUN is 18, creatinine 0.6. ASSESSMENT AND PLAN: 1. Acute kidney injury on chronic kidney disease stage 1. Labs are much better. 2. Increased risk of tumor lysis syndrome, but uric acid and phosphorus level normal and feels like is better, lesser risk at this point. No indication for fluids at this point. 3. Fluid overload with increased leg edema. Plan is to increase Lasix to 40 IV b.i.d. 4. B-cell lymphoma, follow up with Oncology. 5. Hypocalcemia. 6. Hypoalbuminemia. 7. Anemia of chronic disease. 8. We will increase Lasix to 40 IV twice a day and we will monitor. Job ID: [id number]
[2019-07-31] MEDS: Oxybutynin 5 MG TAB PO PRN (13:13)
[2019-07-31] MEDS: Carvedilol 6.25 MG TAB PO SCH (20:54)
[2019-07-31] MEDS: Tamsulosin HCl 0.4 MG CAP PO SCH (20:55)
[2019-07-31] MEDS: Cyclobenzaprine 10 MG TAB PO SCH (20:56)
[2019-07-31] MEDS: Levothyroxine Sodium 50 MCG TAB PO SCH (20:56)
[2019-07-31] MEDS: Ezetimibe 10 MG TAB PO SCH (20:56)
[2019-08-01] MEDS: Lorazepam 2 MG/ML VIAL SLOW IVP PRN ×3 (01:21→19:47)
[2019-08-01] MEDS: Acetaminophen 500 MG TAB PO SCH (04:21)
[2019-08-01 04:50] LABS: Phosphorus 3.1 mg/dL (2.3-4.7)
[2019-08-01 04:51] LABS: Band 7 % (5-11); Hemoglobin 11.2 g/dL (14.0-18.0); Lymphocytes 6 % (21-51); MDiff Complete? YES; Mean Corpuscular HGB CONC 37.6 g/dL (32.0-36.0); Mean Corpuscular Hemoglobin 35.6 pg (27.0-31.0); Mean Corpuscular Volume 94.6 fL (78.0-98.0); Mean Platelet Volume 6.4 fL (7.4-10.4); Neutrophil 87 % (42-75); Platelet Count 415 thou/uL (130-400); Platelet Morphology Comment Appears Increased; RBC Distribution Width 14.7 % (11.5-14.5); Red Blood Cell (RBC) Count 3.14 mill/uL (4.70-6.10); White Blood Cell (WBC) Count 18.6 thou/uL (4.8-10.8)
[2019-08-01 04:59] LABS: ALT (SGPT) 11 U/L (8-55); AST (SGOT) 22 U/L (5-34); Albumin 2.9 g/dL (3.5-5.0); Alkaline Phosphatase 107 U/L (40-110); Anion Gap 8 mmol/L (10-20); BUN (Urea Nitrogen) 18 mg/dL (8.4-25.7); Bilirubin, Total 0.3 mg/dL (0.2-1.2); Calc. Creatinine Clearance 213 mL/min (70-130); Calcium 8.1 mg/dL (7.8-10.44); Carbon Dioxide 32 mmol/L (22-29); Chloride 100 mmol/L (98-107); Estimated GFR-MDRD Greater than 90; Globulin 1.9 g/dL (2.4-3.5); Glucose 110 mg/dL (70-105); Potassium 3.8 mmol/L (3.5-5.1); Protein, Total 4.8 g/dL (6.0-8.3); Sodium 136 mmol/L (136-145); Uric Acid 5.4 mg/dL (3.5-7.2)
[2019-08-01] MEDS: Furosemide 40 MG/4 ML VIAL SLOW IVP SCH ×2 (06:10→13:14)
--- NOTE | 2019-08-01 06:10 | PDOC.FM ---
- Subjective Subjective: Pt tired this morning. Per he had a difficult night as he received one more dose of steroid. He required ativan. He did urinate 4L over 24 hours. - Objective Vital Signs & Weight: Vital Signs (12 hours) Temp Pulse Resp BP BP Pulse Ox 08/01/19 04:00 97.3 F L 71 16 113/64 94 L 07/31/19 23:50 98.3 F 85 18 104/59 L 95 07/31/19 20:54 138/80 07/31/19 20:00 98.2 F 91 18 138/80 95 07/31/19 18:54 96 18 94 L Weight Admit Weight 119.204 kg Weight 118.841 kg I&O: 07/30/19 07/31/19 08/01/19 06:59 06:59 06:59 Intake Total 800 1310 2040 Output Total 4200 4150 6015 Balance -5437 -0936 -9445 Result Diagrams: 08/01/19 04:13 08/01/19 04:13 Phys Exam - Physical Examination Constitutional: NAD Resting HEENT: PERRLA, moist MMs Respiratory: no wheezing, no rales, clear to auscultation bilateral Cardiovascular: RRR, no significant murmur Gastrointestinal: soft, positive bowel sounds mild distention Musculoskeletal: pulses present 2 + Pitting edema Neurological: non-focal, moves all 4 limbs Psychiatric: normal affect Dx/Plan (1) Pleural effusion Code(s): J90 - PLEURAL EFFUSION, NOT ELSEWHERE CLASSIFIED Status: Acute (2) Retroperitoneal mass Code(s): R19.00 - INTRA-ABD AND PELVIC SWELLING, MASS AND LUMP, UNSP SITE Status: Acute (3) Acquired polycythemia Code(s): D75.1 - SECONDARY POLYCYTHEMIA Status: Acute (4) Borderline diabetes mellitus Code(s): R73.03 - PREDIABETES Status: Acute (5) HLD (hyperlipidemia) Code(s): E78.5 - HYPERLIPIDEMIA, UNSPECIFIED Status: Chronic (6) HTN (hypertension) Code(s): I10 - ESSENTIAL (PRIMARY) HYPERTENSION Status: Chronic - Plan Plan: 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 - neg B Cell Lymphoma in bone marrow Leukocytosis - Will assess for signs of infection, pt afebrile overnight. Possibly 2/2 chemotherapy. Tumor Lysis Syndrome Hyperkalemia - WNL Hyperphosphatemia Hyperuricemia - Likely 2/2 tumor lysis syndrome from [facility]R - Oncology, nephro consulted, Placed pt on NS @ 50 ml/hr and increase lasix. - continue allopurinol - monitor Constipation - 1 satisfying BM on 07/30/19 - lactulose prn - continue daily prophylactic medications Kaur Catheter Penile Pain - barrier cream R large pleural effusion, recurrent, stable - contributing to pt's oxygen requirement Tachycardia w/ oxygen requirement - continue to monitor Urinary Retention - unchanged - Kaur catheter placed. - Dr. Abreu initiated oxybutynin, flomax. Kaur catheter placed. Failed first voiding trial. Likely 2/2 BPH or constipation, opioid requirement. Bilateral lower extremity edema, Abdominal edema - No known history of heart failure. Echo revealed EF 55-60% - likely 2/2 retroperitoneal mass effect on vasculature. - Will monitor I/O Cholelithiasis - RUQ US earlier this week showed small gall stones without evidence of cholecystitis Type II DM, diet controlled - No longer taking medications SAWYER - CPAP qHS. HTN - Will continue home medications Insomnia - Will continue home medications Hypothyroidism - Will continue home medications Disposition/LOS: Dispo: Stable, will be hospitalized until end of first chemotherapy round Code: Full VTE PPX: Lovenox 40 mg BID w/ cancer
[2019-08-01] MEDS ORDERED: traMADol HCl 50 MG TAB PO PRN ×2 (07:00)
[2019-08-01] MEDS ORDERED: HYDROcodone/Acetaminophen 10/325 mg Tablet PO PRN (07:00)
[2019-08-01] MEDS ORDERED: Morphine 4 MG/ML VIAL SLOW IVP PRN ×2 (07:00→07:45)
[2019-08-01] MEDS: Loratadine 10 MG TAB PO SCH (10:10)
[2019-08-01] MEDS: Senokot S 8.6-50 MG TAB PO SCH ×2 (10:10→20:43)
[2019-08-01] MEDS: Famotidine 20 MG TAB PO SCH ×2 (10:10→20:42)
[2019-08-01] MEDS: Polyethylene Glycol 3350 17 GM Packet PO SCH (10:11)
[2019-08-01] MEDS: Allopurinol 300 MG TAB PO SCH (10:11)
[2019-08-01] MEDS: Enoxaparin Sodium 40 MG/0.4 ML SYRINGE SC SCH ×2 (10:11→20:40)
[2019-08-01] MEDS: diphenhydrAMINE 25 MG CAP PO PRN ×2 (11:40→20:45)
--- NOTE | 2019-08-01 12:17 | PRG ---
DATE OF SERVICE: 08/01/2019 Mr. Guzman has continued to undergo chemotherapy. He is also continuing a brisk diuresis and his edema though present is improved. We will continue to follow with Oncology. Job ID: [id number]
--- NOTE | 2019-08-01 12:41 | PRG ---
DATE OF SERVICE: 08/01/2019 SUBJECTIVE: Patient was seen and examined at bedside and overnight events noted. Patient denies any shortness of breath or chest pain or palpitation. No history of nausea or vomiting or diarrhea or fever or chills or cramps. OBJECTIVE: GENERAL: This is a well-built male in no apparent distress. VITAL SIGNS: Temperature 99. Heart rate 84. Respiratory rate 18. Blood pressure 107/56. HEENT: Atraumatic, normocephalic. Oral mucosa is moist NECK: Supple. CARDIOVASCULAR: S1, S2 heard. Rate and rhythm regular. RESPIRATORY: Clear to auscultation. GASTROINTESTINAL: Abdomen is soft. MUSCULOSKELETAL: No tenderness. No edema. DERMATOLOGIC: No skin rash. NEUROLOGIC: Alert and awake and oriented X3. No focal neurologic deficits. Moving all the extremities. PSYCHIATRIC: Mood and affect normal. LABORATORY DATA: Potassium 3.8, BUN is 18, creatinine is 0.6, magnesium is 2.0, uric acid is 5.4. ASSESSMENT AND PLAN: 1. Acute kidney injury on chronic kidney disease, stage 1. Labs are stable. 2. Tumor lysis syndrome, reduced risk at this point. 3. Fluid overload. We will continue on Lasix 40 mg IV b.i.d. 4. Hypoalbuminemia, moderate. We will add IV albumin. 5. B-cell lymphoma. 6. Hypocalcemia, better. 7. Anemia of chronic disease. Plan is to continue on Lasix. We will add albumin also two doses today. We will follow. Job ID: [id number]
[2019-08-01] MEDS: Albumin 25% 25 GM/100 ML BOT IVPB SCH ×2 (13:20→22:10)
--- NOTE | 2019-08-01 14:20 | PDOC.MOPN ---
Interval History: more alert, pain controlled. - Vital Signs Vital Signs: Vital Signs (12 hours) Temp Pulse Resp BP Pulse Ox 08/01/19 12:00 98.5 F 76 16 123/61 94 L 08/01/19 10:19 88 20 08/01/19 08:00 94 L 08/01/19 07:24 98.9 F 84 18 107/56 L 94 L 08/01/19 06:20 71 12 08/01/19 04:00 97.3 F L 71 16 113/64 94 L Weight Admit Weight 262 lb 12.8 oz Weight 262 lb - Physical Exam General: Alert, Oriented x3, No acute distress HEENT: Atraumatic, PERRLA, EOMI, Mucous membr. moist/pink Lungs: Clear to auscultation, Normal air movement Cardiovascular: Regular rate, Normal S1, Normal S2, No murmurs, Gallops, Rubs Abdomen: Normal bowel sounds, Soft, No tenderness, No hepatospenomegaly, No masses Extremities: No clubbing, No cyanosis, No edema, Normal pulses, No tenderness/ swelling Skin: No rashes, No breakdown, No significant lesion Neurological: Normal gait, Normal speech, Strength at 5/5 X4 ext, Normal tone, Sensation intact, Cranial nerves 3-12 NL, Reflexes 2+ Psych/Mental Status: Mental status NL, Mood NL - Labs Result Diagrams: 08/01/19 04:13 08/01/19 04:13 Lab results: Laboratory Results - last 24 hr 08/01/19 11:28: POC Glucose 98 08/01/19 05:17: POC Glucose 106 08/01/19 04:13: Phosphorus 3.1 08/01/19 04:13: Lactate Dehydrogenase 221 H 08/01/19 04:13: Sodium 136, Potassium 3.8, Chloride 100, Carbon Dioxide 32 H, Anion Gap 8 L, BUN 18, Creatinine 0.66 L, Estimated GFR (MDRD) Greater than 90 , Glucose 110 H, Uric Acid 5.4, Calcium 8.1, Magnesium 2.0, Total Bilirubin 0.3 , AST 22, ALT 11, Alkaline Phosphatase 107, Serum Total Protein 4.8 L, Albumin 2.9 L, Globulin 1.9 L, Albumin/Globulin Ratio 1.5 08/01/19 04:13: WBC 18.6 H, RBC 3.14 L, Hgb 11.2 L, Hct 29.7 L, MCV 94.6, MCH 35.6 H, MCHC 37.6 H, RDW 14.7 H, Plt Count 415 H, MPV 6.4 L, Neutrophils % ( Manual) 87 H, Band Neuts % (Manual) 7, Lymphocytes % (Manual) 6 L, Plt Morphology Comment Appears Increased H 07/31/19 21:48: POC Glucose 172 H 07/31/19 17:23: POC Glucose 146 H 07/25/19 12:00: Cytogenetics Note , Cytogenetics Report Status: lab reviewed by me A/P - Problem (1) Pleural effusion Current Visit: Yes Code(s): J90 - PLEURAL EFFUSION, NOT ELSEWHERE CLASSIFIED Status: Acute (2) Retroperitoneal mass Current Visit: Yes Code(s): R19.00 - INTRA-ABD AND PELVIC SWELLING, MASS AND LUMP, UNSP SITE Status: Acute (3) Lymphoma malignant, large cell Current Visit: Yes Code(s): C85.80 - [facility] TYPES OF NON-HODGKIN LYMPHOMA, UNSPECIFIED SITE Status: Acute - Plan Plan: patient ok to dc home from our perspective Nephrology continues diuresis He will follow-up next week for labs, visit.
[2019-08-01] MEDS: Carvedilol 6.25 MG TAB PO SCH (20:41)
[2019-08-01] MEDS: Ezetimibe 10 MG TAB PO SCH (20:42)
[2019-08-01] MEDS: Cyclobenzaprine 10 MG TAB PO SCH (20:42)
[2019-08-01] MEDS: Levothyroxine Sodium 50 MCG TAB PO SCH (20:43)
[2019-08-01] MEDS: Tamsulosin HCl 0.4 MG CAP PO SCH (20:44)
[2019-08-01] MEDS: Oxybutynin 5 MG TAB PO PRN (20:45)
[2019-08-02] MEDS: Furosemide 40 MG/4 ML VIAL SLOW IVP SCH ×2 (05:19→14:55)
[2019-08-02] MEDS: Albumin 25% 25 GM/100 ML BOT IVPB SCH ×2 (05:20→14:55)
[2019-08-02 06:04] LABS: Phosphorus 3.3 mg/dL (2.3-4.7)
[2019-08-02 06:07] LABS: ALT (SGPT) 8 U/L (8-55); AST (SGOT) 15 U/L (5-34); Alkaline Phosphatase 85 U/L (40-110); Anion Gap 7 mmol/L (10-20); BUN (Urea Nitrogen) 16 mg/dL (8.4-25.7); Bilirubin, Total 0.5 mg/dL (0.2-1.2); Calc. Creatinine Clearance 200 mL/min (70-130); Carbon Dioxide 35 mmol/L (22-29); Chloride 100 mmol/L (98-107); Estimated GFR-MDRD Greater than 90; Globulin 1.6 g/dL (2.4-3.5); Glucose 84 mg/dL (70-105); Magnesium 1.8 mg/dL (1.6-2.6); Potassium 3.6 mmol/L (3.5-5.1); Protein, Total 4.6 g/dL (6.0-8.3); Sodium 138 mmol/L (136-145); Uric Acid 5.5 mg/dL (3.5-7.2)
--- NOTE | 2019-08-02 06:17 | PDOC.FM ---
- Subjective Subjective: Pt is doing well this morning. Voiding trial this am. Pain controlled with patch. He has good UOP with lasix. He denies SOB, fever, chills. Cleared for home by oncology. - Objective Vital Signs & Weight: Vital Signs (12 hours) Temp Pulse Resp BP BP Pulse Ox 08/01/19 20:41 148/71 H 08/01/19 20:02 93 14 94 L 08/01/19 20:00 98.5 F 89 20 148/71 H 93 L 08/01/19 19:50 93 L Weight Admit Weight 119.204 kg Weight 118.841 kg I&O: 07/31/19 08/01/19 08/02/19 06:59 06:59 06:59 Intake Total 1310 2040 1247 Output Total 5927 5708 9154 Balance -4008 -4659 -6426 Result Diagrams: 08/02/19 05:17 08/02/19 05:17 Phys Exam - Physical Examination Constitutional: NAD HEENT: PERRLA, moist MMs Neck: no JVD, full ROM Respiratory: no wheezing, no rales, clear to auscultation bilateral Cardiovascular: no significant murmur Gastrointestinal: soft, non-tender, positive bowel sounds Musculoskeletal: pulses present 1-2+ pitting edema Neurological: non-focal, moves all 4 limbs Psychiatric: normal affect Skin: no rash, cap refill <2 seconds Dx/Plan (1) Pleural effusion Code(s): J90 - PLEURAL EFFUSION, NOT ELSEWHERE CLASSIFIED Status: Acute (2) Retroperitoneal mass Code(s): R19.00 - INTRA-ABD AND PELVIC SWELLING, MASS AND LUMP, UNSP SITE Status: Acute (3) Acquired polycythemia Code(s): D75.1 - SECONDARY POLYCYTHEMIA Status: Acute (4) Borderline diabetes mellitus Code(s): R73.03 - PREDIABETES Status: Acute (5) HLD (hyperlipidemia) Code(s): E78.5 - HYPERLIPIDEMIA, UNSPECIFIED Status: Chronic (6) HTN (hypertension) Code(s): I10 - ESSENTIAL (PRIMARY) HYPERTENSION Status: Chronic - Plan Plan: 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 - discharge with fentanyl patch. Will discuss with on rounds for breakthrough pain. Leukocytosis - no signs of infection Tumor Lysis Syndrome Hyperkalemia - WNL Hyperphosphatemia Hyperuricemia - Likely 2/2 tumor lysis syndrome from CHOPR - Oncology, nephro consulted, Placed pt on NS @ 50 ml/hr and increase lasix. - continue allopurinol - monitor Constipation - continue prophylactic therapy, will d/c with medications Kaur Catheter Penile Pain - barrier cream R large pleural effusion, recurrent, stable - contributing to pt's oxygen requirement Tachycardia w/ oxygen requirement - continue to monitor Urinary Retention - unchanged - voiding trial this am Bilateral lower extremity edema, Abdominal edema - No known history of heart failure. Echo revealed EF 55-60% - likely 2/2 retroperitoneal mass effect on vasculature. - Will monitor I/O, continue lasix in the outpt setting; will d/c with Lasix 40 mg PO BID Cholelithiasis - RUQ US earlier this week showed small gall stones without evidence of cholecystitis Type II DM, diet controlled - No longer taking medications SAWYER - CPAP qHS. HTN - Will continue home medications Insomnia - Will continue home medications Hypothyroidism - Will continue home medications Disposition/LOS: Dispo: Stable, likely d/c today Code: Full VTE PPX: Will discuss prophylaxis on rounds.
[2019-08-02 06:21] LABS: Hemoglobin 10.8 g/dL (14.0-18.0); Mean Corpuscular HGB CONC 33.6 g/dL (32.0-36.0); Mean Corpuscular Hemoglobin 32.2 pg (27.0-31.0); Mean Corpuscular Volume 95.8 fL (78.0-98.0); Mean Platelet Volume 6.4 fL (7.4-10.4); Platelet Count 399 thou/uL (130-400); RBC Distribution Width 14.4 % (11.5-14.5); Red Blood Cell (RBC) Count 3.35 mill/uL (4.70-6.10); White Blood Cell (WBC) Count 7.2 thou/uL (4.8-10.8)
[2019-08-02 06:23] LABS: Band 7 % (5-11); Eosinophils 5 % (0-10); Lymphocytes 12 % (21-51); MDiff Complete? YES; Monocytes 1 % (0-10); Neutrophil 75 % (42-75); Platelet Morphology Comment Appears Adequate; Polychromasia SLIGHT = 2-3 cells (100X) (0-2/hpf)
[2019-08-02] MEDS: Polyethylene Glycol 3350 17 GM Packet PO SCH (09:09)
[2019-08-02] MEDS: Loratadine 10 MG TAB PO SCH (09:09)
[2019-08-02] MEDS: Allopurinol 300 MG TAB PO SCH (09:09)
[2019-08-02] MEDS: Senokot S 8.6-50 MG TAB PO SCH ×2 (09:09→20:37)
[2019-08-02] MEDS: Enoxaparin Sodium 40 MG/0.4 ML SYRINGE SC SCH ×2 (09:09→20:36)
[2019-08-02] MEDS: Famotidine 20 MG TAB PO SCH ×2 (09:09→20:36)
[2019-08-02] MEDS ORDERED: AcetaZOLAMIDE 250 MG TAB PO SCH (11:00)
[2019-08-02] MEDS ORDERED: Potassium Chloride 20 MEQ TAB PO SCH (11:00)
[2019-08-02] MEDS: fentaNYL 50 mcg/hour Patch TD SCH (11:35)
--- NOTE | 2019-08-02 11:49 | PRG ---
DATE OF SERVICE: 08/02/2019 SUBJECTIVE: The patient states he is feeling fine. He has completed his chemotherapy in the hospital and is now on a break before starting his next cycle. He states his right flank pain is still persisting, but has improved from prior. His Kaur catheter was removed today, and he is awaiting discharge instructions and awaiting proper void. He states he has been able to void, but has not had a postvoid residual check. Last time, the patient was able to void, but had a 600 mL PVR. OBJECTIVE: VITAL SIGNS: Temperature 98.8, pulse 90, respirations 18, blood pressure 105/59, and saturation 94% on room air. GENERAL: No apparent distress. Communicative and alert. CARDIOVASCULAR: Regular rate and rhythm. Normal S1 and S2. CHEST: No increased work of breathing. Symmetric expansion of lungs. ABDOMEN: Obese, protuberant, soft, minimally tender to palpation on the right. No suprapubic tenderness. : Kaur catheter is currently out. The penis is nonfocal. EXTREMITIES: 1+ edema bilaterally. No cyanosis. LABORATORY EVALUATION: The patient's white count is 7.2 with a hemoglobin 10.8. Creatinine is currently 0.7. ASSESSMENT AND PLAN: A 54-year-old white male with benign prostatic hypertrophy and urinary retention with B-cell lymphoma and a large retroperitoneal mass, which is currently under treatment with chemotherapy. The patient had become significantly debilitated, resulting in urinary retention. He had failed a previous void trial with elevated postvoid residuals. He states he is voiding better now and is currently taking tamsulosin, which I would recommend continuing even upon discharge. I would like for him to get another postvoid residual today via BladderScan immediately after voiding. If his PVR is less than 150 mL, I think the patient can keep his catheter out and be discharged home with followup with me as an outpatient to discuss and monitor his voiding status. I probably would not recommend procedural based or aggressive intervention until he finishes his chemotherapy, but after that time, he may be amenable to that if he desires. I would recommend continuing on the tamsulosin for now to ensure proper voiding. I will go ahead and sign off at this time, so long as there are no further issues, the nurse states he will contact me with the residual numbers. If he is in urinary retention, he can still be discharged, but will need to be discharged with a Karu catheter and can follow up with me more promptly for catheter removal and void trial as an outpatient. Job ID: [id number]
--- NOTE | 2019-08-02 12:26 | PRG ---
DATE OF SERVICE: 08/02/2019 SUBJECTIVE: Patient was seen and examined at bedside and overnight events noted. Patient denies any shortness of breath or chest pain or palpitation. No history of nausea or vomiting or diarrhea or fever or chills or cramps. OBJECTIVE: GENERAL: This is a well-built male, in no apparent distress. VITAL SIGNS: Temperature 98. Heart rate 90. Respiratory rate 18. Blood pressure 105/59. HEENT: Atraumatic, normocephalic. Oral mucosa is moist. NECK: Supple. CARDIOVASCULAR: S1, S2 heard. Rate and rhythm regular. RESPIRATORY: Clear to auscultation. GASTROINTESTINAL: Abdomen is soft. MUSCULOSKELETAL: No tenderness. No edema. DERMATOLOGIC: No skin rash. NEUROLOGIC: Alert and awake and oriented x3. No focal neurologic deficits. Moving all the extremities. PSYCHIATRIC: Mood and affect normal. LABORATORY DATA: Potassium 3.6, BUN is 16, and creatinine 0.7. ASSESSMENT AND PLAN: 1. Acute kidney injury on chronic kidney disease, stage 1, stable. 2. Edema. Fluid overload. Continue Lasix. We will add acetazolamide. 3. Tumor lysis syndrome. 4. Alkalosis. We will add Diamox. 5. Hypocalcemia. 6. Anemia of chronic disease. Swelling is better. Continues to be fluid overloaded. Continue Lasix. We will add Diamox. We will follow. Job ID: [id number]
[2019-08-02] MEDS: Oxybutynin 5 MG TAB PO PRN ×2 (15:21→21:33)
[2019-08-02] MEDS: Lorazepam 2 MG/ML VIAL SLOW IVP PRN ×2 (15:24→22:12)
[2019-08-02] MEDS: Ondansetron PF 4 MG/2 ML Vial IVP PRN (16:41)
[2019-08-02] MEDS: Cyclobenzaprine 10 MG TAB PO SCH (20:35)
[2019-08-02] MEDS: Carvedilol 6.25 MG TAB PO SCH (20:35)
[2019-08-02] MEDS: Levothyroxine Sodium 50 MCG TAB PO SCH (20:36)
[2019-08-02] MEDS: Ezetimibe 10 MG TAB PO SCH (20:36)
[2019-08-02] MEDS: Tamsulosin HCl 0.4 MG CAP PO SCH (20:38)
[2019-08-02] MEDS: HYDROcodone/Acetaminophen 10/325 mg Tablet PO PRN (22:19)
[2019-08-03 05:52] LABS: #Eosinphils 0.2 thou/uL (0.0-0.7); #Lymphocytes 1.3 thou/uL (1.20-3.40); #Monocytes 0.2 thou/uL (0.11-0.59); #Neutrophils 2.4 thou/uL (1.40-6.50); %Basophils 0.4 % (0.0-1.0); %Eosinophils 5.7 % (0.0-10.0); %Lymphocytes 30.9 % (21.0-51.0); %Monocytes 4.5 % (0.0-10.0); %Neutrophils 58.5 % (42.0-75.0); Hemoglobin 11.8 g/dL (14.0-18.0); Mean Corpuscular HGB CONC 34.2 g/dL (32.0-36.0); Mean Corpuscular Hemoglobin 32.7 pg (27.0-31.0); Mean Corpuscular Volume 95.5 fL (78.0-98.0); Mean Platelet Volume 6.4 fL (7.4-10.4); Platelet Count 435 thou/uL (130-400); RBC Distribution Width 14.8 % (11.5-14.5); White Blood Cell (WBC) Count 4.1 thou/uL (4.8-10.8)
[2019-08-03 06:10] LABS: Phosphorus 3.3 mg/dL (2.3-4.7)
[2019-08-03 06:11] LABS: ALT (SGPT) 10 U/L (8-55); AST (SGOT) 19 U/L (5-34); Albumin 3.8 g/dL (3.5-5.0); Alkaline Phosphatase 102 U/L (40-110); Anion Gap 9 mmol/L (10-20); BUN (Urea Nitrogen) 17 mg/dL (8.4-25.7); Bilirubin, Total 0.8 mg/dL (0.2-1.2); Calc. Creatinine Clearance 173 mL/min (70-130); Calcium 8.9 mg/dL (7.8-10.44); Carbon Dioxide 32 mmol/L (22-29); Chloride 101 mmol/L (98-107); Estimated GFR-MDRD Greater than 90; Globulin 1.9 g/dL (2.4-3.5); Glucose 93 mg/dL (70-105); Potassium 4.4 mmol/L (3.5-5.1); Protein, Total 5.7 g/dL (6.0-8.3); Sodium 138 mmol/L (136-145); Uric Acid 5.7 mg/dL (3.5-7.2)
[2019-08-03 06:12] LABS: Magnesium 1.9 mg/dL (1.6-2.6)
--- NOTE | 2019-08-03 06:16 | PDOC.FM ---
- Subjective Subjective: Pt is doing well today without complaints. He is ready to go home. He has marcial catheter in place. Pain is controlled. - Objective Vital Signs & Weight: Vital Signs (12 hours) Temp Pulse Resp BP BP Pulse Ox 08/02/19 20:35 128/72 08/02/19 19:45 94 L 08/02/19 19:15 99.2 F 114 H 16 128/72 94 L 08/02/19 18:50 96 14 96 Weight Admit Weight 119.204 kg Weight 118.841 kg I&O: 08/01/19 08/02/19 08/03/19 06:59 06:59 06:59 Intake Total 2040 1247 220 Output Total 6038 9370 1858 Balance -8584 -3329 -7455 Result Diagrams: 08/03/19 05:39 08/03/19 05:39 Phys Exam - Physical Examination Constitutional: NAD HEENT: PERRLA Neck: no JVD, full ROM Respiratory: no wheezing, clear to auscultation bilateral Cardiovascular: RRR, no significant murmur Gastrointestinal: soft, non-tender, no distention Musculoskeletal: pulses present 1-2+ pitting edema Neurological: non-focal, normal sensation Psychiatric: normal affect, A&O x 3 Skin: no rash, cap refill <2 seconds Dx/Plan (1) Pleural effusion Code(s): J90 - PLEURAL EFFUSION, NOT ELSEWHERE CLASSIFIED Status: Acute (2) Retroperitoneal mass Code(s): R19.00 - INTRA-ABD AND PELVIC SWELLING, MASS AND LUMP, UNSP SITE Status: Acute (3) Acquired polycythemia Code(s): D75.1 - SECONDARY POLYCYTHEMIA Status: Acute (4) Borderline diabetes mellitus Code(s): R73.03 - PREDIABETES Status: Acute (5) HLD (hyperlipidemia) Code(s): E78.5 - HYPERLIPIDEMIA, UNSPECIFIED Status: Chronic (6) HTN (hypertension) Code(s): I10 - ESSENTIAL (PRIMARY) HYPERTENSION Status: Chronic - Plan Plan: 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 - discharge with fentanyl patch, medication for breakthrough pain, ativan prn - Rx for walker, bedside commode with pt's deconditioning. He is deconditioned through his first round of chemotherapy and will likely continue to do so through his subsequent treatments. Walker and bedside commode are barriers to prevent pt from injury. Tumor Lysis Syndrome Hyperkalemia - WNL Hyperphosphatemia Hyperuricemia - Likely 2/2 tumor lysis syndrome from CHOPR - Oncology, nephro consulted, Placed pt on NS @ 50 ml/hr and increase lasix. - continue allopurinol - monitor Constipation - continue prophylactic therapy, will d/c with medications Marcial Catheter Penile Pain - barrier cream R large pleural effusion, recurrent, stable - contributing to pt's oxygen requirement Tachycardia w/ oxygen requirement - continue to monitor Urinary Retention - unchanged - failed voiding trial - send home with oxybutnin, flomax Bilateral lower extremity edema, Abdominal edema - No known history of heart failure. Echo revealed EF 55-60% - likely 2/2 retroperitoneal mass effect on vasculature. - Will monitor I/O, continue lasix in the outpt setting; will d/c with Lasix 40 mg PO BID Cholelithiasis - RUQ US earlier this week showed small gall stones without evidence of cholecystitis Type II DM, diet controlled - No longer taking medications SAWYER - CPAP qHS. HTN - Will continue home medications Insomnia - Will continue home medications Hypothyroidism - Will continue home medications Disposition/LOS: Dispo: Stable, d/c today, pt did not feel comfortable leaving yesterday. Code: Full VTE PPX: Will discuss prophylaxis on rounds.
[2019-08-03] MEDS: Furosemide 40 MG/4 ML VIAL SLOW IVP SCH ×2 (06:36→12:52)
[2019-08-03] MEDS ORDERED: AcetaZOLAMIDE 250 MG TAB PO SCH (09:00)
[2019-08-03 09:25] VITALS: BP 108/59; TEMP 98.3
[2019-08-03] MEDS: Famotidine 20 MG TAB PO SCH (09:25)
[2019-08-03] MEDS: Senokot S 8.6-50 MG TAB PO SCH (09:25)
[2019-08-03] MEDS: Loratadine 10 MG TAB PO SCH (09:26)
[2019-08-03] MEDS: Polyethylene Glycol 3350 17 GM Packet PO SCH (09:26)
[2019-08-03] MEDS: Allopurinol 300 MG TAB PO SCH (09:27)
[2019-08-03] MEDS: Enoxaparin Sodium 40 MG/0.4 ML SYRINGE SC SCH (09:28)
--- NOTE | 2019-08-03 12:29 | PRG ---
DATE OF SERVICE: 08/03/2019 SUBJECTIVE: The patient was able to void yesterday, but with elevated postvoid residuals, he was only emptying about 50% of his bladder with the other half remaining within the bladder. I had cautioned against going home like that and recommended that he keep a Kaur catheter back in. Due to other issues regarding his albumin infusion, he ended up staying in the hospital quite late and was not discharged home and stayed in the hospital overnight. He currently has a Kaur catheter replaced. He did have some fairly severe bladder spasms, which were not responding to oxybutynin. He otherwise states currently he is feeling fine and not having any significant bother from his catheter at the moment. OBJECTIVE: VITAL SIGNS: Temperature 98.3, pulse 70, respirations 16, blood pressure 108/59, and saturation 94% on room air. GENERAL: No apparent distress. Communicative and alert. CARDIOVASCULAR: Regular rate and rhythm. ABDOMEN: Soft, protuberant belly. Difficult to palpate masses. Positive bowel sounds. : Kaur catheter in place with clear yellow urine. EXTREMITIES: 1+ edema bilaterally. LABORATORY EVALUATION: The full set of labs are in the [employer] system, which I have reviewed. Of note, the patient's white count is 4.1, hemoglobin 11.8, and creatinine of 0.81. 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 Retention has likely occurred secondary to high narcotic usage and the patient's weakness. I would recommend continuation of the Flomax for improvement of the patient's ultimate voiding status. For now, I do agree with keeping the catheter in until later this week, at which point the patient can come into the office for a nursing visit and have the catheter removed and re-attempted a void trial. If he is still unable to empty his bladder adequately, I think we will teach him CIC as well as his , which will be a more convenient way to urinate without having to have an indwelling catheter all the time and have bladder spasms. In the meantime, we will keep the catheter in and I told the patient we can start him on Levsin to help control his bladder spasms. He is planned to be discharged today. I have sent a prescription in for his Levsin to the [facility]. I will plan to see him in about 2 to 3 weeks for a visit with me and will see my nurse this week for a void trial and possibly learning CIC. He should be discharged with his catheter in place. I will sign off for now. Please re-consult if there are any further problems. Job ID: [id number]
[2019-08-03] MEDS: HYDROcodone/Acetaminophen 10/325 mg Tablet PO PRN (12:50)
--- NOTE | 2019-08-03 13:39 | PRG ---
DATE OF SERVICE: 08/03/2019 SUBJECTIVE: Patient was seen and examined at bedside and overnight events noted. Patient denies any shortness of breath or chest pain or palpitation. No history of nausea or vomiting or diarrhea or fever or chills or cramps. OBJECTIVE: GENERAL: This is a well-built male, in no apparent distress. VITAL SIGNS: Temperature 98.3. Heart rate 70. Respiratory rate 16. Blood pressure 108/59. HEENT: Atraumatic, normocephalic. Oral mucosa is moist. NECK: Supple. CARDIOVASCULAR: S1, S2 heard. Rate and rhythm regular. RESPIRATORY: Clear to auscultation. GASTROINTESTINAL: Abdomen is soft. MUSCULOSKELETAL: No tenderness. No edema. DERMATOLOGIC: No skin rash. NEUROLOGIC: Alert and awake and oriented x3. No focal neurologic deficits. Moving all the extremities. PSYCHIATRIC: Mood and affect normal. LABORATORY DATA: Potassium 4.4, BUN is 17, and creatinine is 0.8. ASSESSMENT AND PLAN: 1. Acute kidney injury on chronic kidney disease, stage 1, stable. 2. Edema, much better. 3. Fluid overload. Continue Lasix. 4. Alkalosis. 5. Tumor lysis syndrome, resolved. 6. Hypocalcemia. 7. Anemia of chronic disease. Edema seems to be much better. Okay with sending home with close monitoring of renal function. Job ID: [id number]
--- NOTE | 2019-08-03 17:26 | PRG ---
DATE OF SERVICE: 08/02/2019 ADDENDUM: This is an addendum to the note of Dr. Jamey Mcintosh. Mr. Guzman is still undergoing chemotherapy, but is otherwise ready for discharge today. It would probably be a good idea to keep him on p.r.n. Lasix use judiciously given that he has significant peripheral edema to the point of causing some skin weeping. He is to follow up with Oncology on Sunday. Job ID: [id number]
--- NOTE | 2019-08-03 17:57 | PRG ---
DATE OF SERVICE: 08/03/2019 ADDENDUM: This is an addendum to the note of Dr. Jamey Mcintosh. Mr. Guzman is sitting quietly in bed, in no distress. We will send him home on some fentanyl patches and oral [place] for breakthrough pain. He is ready for discharge. Job ID: [id number]
== END 2019-08-03 14:30 | disposition home or self-care (01) | DRG 823 ==
LOC: ERS 07:27 → T4-A 13:20 → OBSVTOIN 13:20 → ONC 07-24 12:11
PROVIDERS: ADMIT Emergency Medicine; ATTEND Emergency Medicine
PROC: 0W993ZZ Drainage of Right Pleural Cavity, Percutaneous Approach (ICD-10-PCS; principal; 2019-07-19)
PROC: 0WBH3ZX Excision of Retroperitoneum, Percutaneous Approach, Diagnostic (ICD-10-PCS; 2019-07-21)
PROC: 02HV33Z Insertion of Infusion Device into Superior Vena Cava, Percutaneous Approach (ICD-10-PCS; 2019-07-24)
PROC: B518ZZA Fluoroscopy of Superior Vena Cava, Guidance (ICD-10-PCS; 2019-07-24)
PROC: 0JH60WZ Insertion of Totally Implantable Vascular Access Device into Chest Subcutaneous Tissue and Fascia, Open Approach (ICD-10-PCS; 2019-07-24)
PROC: 07DR3ZX Extraction of Iliac Bone Marrow, Percutaneous Approach, Diagnostic (ICD-10-PCS; 2019-07-25)
PROC: 3E04305 Introduction of Other Antineoplastic into Central Vein, Percutaneous Approach (ICD-10-PCS; 2019-07-26)
DX: C83.33 Diffuse large B-cell lymphoma, intra-abdominal lymph nodes (principal); E88.3 Tumor lysis syndrome; N17.9 Acute kidney failure, unspecified; E23.0 Hypopituitarism; J90 Pleural effusion, not elsewhere classified; K56.609 Unspecified intestinal obstruction, unspecified as to partial versus complete obstruction; R18.8 Other ascites; E87.3 Alkalosis; G47.33 Obstructive sleep apnea (adult) (pediatric); D75.1 Secondary polycythemia; G47.00 Insomnia, unspecified; K80.20 Calculus of gallbladder without cholecystitis without obstruction; F41.9 Anxiety disorder, unspecified; F32.9 Major depressive disorder, single episode, unspecified; E78.00 Pure hypercholesterolemia, unspecified; E78.1 Pure hyperglyceridemia; Z96.642 Presence of left artificial hip joint; E66.01 Morbid (severe) obesity due to excess calories; J30.2 Other seasonal allergic rhinitis; N40.1 Benign prostatic hyperplasia with lower urinary tract symptoms; D63.0 Anemia in neoplastic disease; R33.8 Other retention of urine; E11.22 Type 2 diabetes mellitus with diabetic chronic kidney disease; N18.1 Chronic kidney disease, stage 1; I12.9 Hypertensive chronic kidney disease with stage 1 through stage 4 chronic kidney disease, or unspecified chronic kidney disease; E03.9 Hypothyroidism, unspecified; E78.5 Hyperlipidemia, unspecified; E88.09 Other disorders of plasma-protein metabolism, not elsewhere classified; Z88.8 Allergy status to other drugs, medicaments and biological substances; Z88.1 Allergy status to other antibiotic agents; Z79.890 Hormone replacement therapy; Z79.899 Other long term (current) drug therapy; Z99.89 Dependence on other enabling machines and devices; Z98.84 Bariatric surgery status; Z68.37 Body mass index [BMI] 37.0-37.9, adult; Z91.048 Other nonmedicinal substance allergy status; K59.00 Constipation, unspecified; R00.0 Tachycardia, unspecified; E87.5 Hyperkalemia; E83.51 Hypocalcemia; E83.39 Other disorders of phosphorus metabolism; E79.0 Hyperuricemia without signs of inflammatory arthritis and tophaceous disease; E87.70 Fluid overload, unspecified; T40.605A Adverse effect of unspecified narcotics, initial encounter
CPT/HCPCS: 20225; 36415; 36416; 49180; 71045; 71046; 71260; 74177; 77012; 80048; 80053; 81003; 81015; 82150; 82465; 82945; 83615; 83690; 83735; 83880; 84100; 84157; 84478; 84484; 84550; 85025; 85060; 85097; 85520; 85610; 85730; 87070; 87086; 87116; 87205; 87206; 88112; 88184; 88237; 88305; 88307; 88311; 88313; 88333; 88341; 88342; 89051; 93005; 93306; 94640; 94660; 96374; 96375; 96376; C1788; G0103; J1100; J1170; J1200; J1453; J1642; J1650; J1815; J1940; J1956; J2001; J2060; J2250; J2270; J2405; J2469; J2704; J3010; J3490; J7050; J7512; J7620; J9000; J9070; J9312; J9370; P9047; Q0162; Q0163; Q5108; Q9967; S0020

== ENCOUNTER 2019-09-26 10:47 | Outpatient (CLI) | payer OTHER ==
--- NOTE | 2019-09-26 12:30 | CT ---
CT abdomen and pelvis with IV and oral contrast HISTORY: Lymphoma. Restaging. COMPARISON: 07/18/2019. FINDINGS: Right pleural fluid and bibasilar atelectasis have decreased slightly. Minimal left pleural fluid and basilar atelectasis remain. Postoperative changes of the stomach again demonstrated. Intra-abdominal fluid has decreased. There has now been near complete decompression of the right retr operitoneum, with small amount of residual ill-defined stranding throughout the retroperitoneal fat. At its greatest distention, the right retroperitoneum is now 13.4 cm greatest width by 12.2 cm g reatest depth. Minimal anterior displacement of the right kidney due to the residual soft tissue density remaining posterior to it. Spleen measures up to 15.2 cm. Nonenlarged lymph nodes noted within the right lower quadrant mesentery. Urinary bladder is decompressed. Left hip prosthesis. Degenerative changes lumbar spine. IMPRESSION : Tremendous improvement. Minimal residual soft tissue density lesion within and mild residual expansio n of the right retroperitoneum. Interval decrease in still moderate sized right pleural effusion and basilar atelectasis. Spleen now enlarged at 15.2 cm.
== END 2019-09-26 10:48 | disposition home or self-care (01) ==
LOC: SCSCT 10:47
PROVIDERS: ATTEND Internal Medicine Hematology & Oncology
DX: C83.36 Diffuse large B-cell lymphoma, intrapelvic lymph nodes (principal); K68.9 Other disorders of retroperitoneum; J90 Pleural effusion, not elsewhere classified; J98.11 Atelectasis; R16.1 Splenomegaly, not elsewhere classified
CPT/HCPCS: 74177

== ENCOUNTER 2019-11-25 09:28 | Outpatient (CLI) | payer OTHER ==
--- NOTE | 2019-11-25 12:29 | PET ---
PET CT: HISTORY: A 54-year-old male with diffuse large B-cell lymphoma diagnosed on a biopsy of right retroperitoneal mass on 07/21/2019. The patient is currently undergoing chemotherapy. Exam requested to evaluate res ponse to treatment. TECHNIQUE: PET scanning with CT attenuation correction was performed from the base of the brain through the prox imal thighs following the intravenous administration of 11 mCi [id number] in the right desai nd. COMPARISON: None. CORRELATION: CT abdomen and pelvis of 09/26/2019. FINDINGS: No vidal hypermetabolism is seen in the neck, chest, axillae, abdomen, or pelvis. No hypermetabolic pulmonary nodules, liver, adrenal, or skeletal lesions are seen. A moderate-sized right pleural effusion is again seen. There is a soft tissue density in the right r etroperitoneal region without abnormal FDG localization. There is physiologic activity in the GI and tracts and the visualized portions of the brain. The CT scan used for attenuation correction demonstrates no evidence of left pleural effusion, perica rdial effusion, or ascites. IMPRESSION: 1. No evidence of viable lymphoma. 2. Moderate-sized right pleural effusion. POS: [facility]
== END 2019-11-25 09:29 | disposition home or self-care (01) ==
LOC: PET 09:28
PROVIDERS: ATTEND Internal Medicine Hematology & Oncology
DX: C83.36 Diffuse large B-cell lymphoma, intrapelvic lymph nodes (principal); J90 Pleural effusion, not elsewhere classified
CPT/HCPCS: 78815; A9552

== ENCOUNTER 2019-11-27 13:50 | Outpatient (CLI) | payer OTHER ==
--- NOTE | 2019-11-27 14:06 | RAD ---
RADIOGRAPH CHEST 2 VIEW: DATE: 11/27/2019 TIME: 2:00 PM HISTORY: Follow-up pleural effusion in 54-year-old male COMPARISON: 07/22/2019 FINDINGS: The left pleural effusion has resolved. The right pleural effusion has decreased in volume, and is now small. The lungs are now essentially c lear, except for calcified granuloma at left lateral midlung field. No cardiomegaly, mediastinal widening, or pneumothorax. Right IJ implantable vascular access port has been placed with distal tip at SVC. IMPRESSION: 1) interval decrease in volume of right pleural effusion, now small. 2.) Interval resolution of the previously demonstrated small left pleural effusion. 3) right-sided implantable vascular access port insertion
== END 2019-11-27 13:51 | disposition home or self-care (01) ==
LOC: BICRAD 13:50
PROVIDERS: ATTEND Nurse Practitioner Family
DX: J90 Pleural effusion, not elsewhere classified (principal); C83.36 Diffuse large B-cell lymphoma, intrapelvic lymph nodes; Z95.818 Presence of other cardiac implants and grafts
CPT/HCPCS: 71046

== ENCOUNTER 2020-03-17 20:12 | Emergency (ER) | payer OTHER ==
[~2020-03-17 20:12] MED LIST: Iopamidol-370 76% 500 ML 1 ML ONE
[2020-03-17 20:56] LABS: #Eosinphils 0.1 thou/uL (0.0-0.7); #Lymphocytes 0.5 thou/uL (1.20-3.40); #Monocytes 0.4 thou/uL (0.11-0.59); %Basophils 0.6 % (0.0-1.0); %Eosinophils 2.2 % (0.0-10.0); %Lymphocytes 9.9 % (21.0-51.0); %Monocytes 7.7 % (0.0-10.0); %Neutrophils 79.5 % (42.0-75.0); Mean Corpuscular HGB CONC 33.9 g/dL (32.0-36.0); Mean Corpuscular Volume 88.6 fL (78.0-98.0); Mean Platelet Volume 7.5 fL (7.4-10.4); Platelet Count 192 thou/uL (130-400); RBC Distribution Width 13.1 % (11.5-14.5); Red Blood Cell (RBC) Count 4.66 mill/uL (4.70-6.10); White Blood Cell (WBC) Count 5.1 thou/uL (4.8-10.8)
[2020-03-17 21:17] LABS: ALT (SGPT) 8 U/L (8-55); AST (SGOT) 22 U/L (5-34); Alkaline Phosphatase 93 U/L (40-110); Anion Gap 14 mmol/L (10-20); BUN (Urea Nitrogen) 19 mg/dL (8.4-25.7); Bilirubin, Total 0.3 mg/dL (0.2-1.2); Calc. Creatinine Clearance 0 mL/min (70-130); Calcium 8.9 mg/dL (7.8-10.44); Carbon Dioxide 22 mmol/L (22-29); Chloride 107 mmol/L (98-107); Estimated GFR-MDRD Greater than 90; Globulin 2.3 g/dL (2.4-3.5); Glucose 102 mg/dL (70-105); Lipase 11 U/L (8-78); Potassium 3.3 mmol/L (3.5-5.1); Protein, Total 6.3 g/dL (6.0-8.3); Sodium 140 mmol/L (136-145)
[2020-03-17] MEDS ORDERED: Ondansetron PF 4 MG/2 ML Vial ONE (21:23)
[2020-03-17] MEDS ORDERED: Morphine 4 MG/ML VIAL ONE ×2 (21:23→23:14)
[2020-03-17 22:06] LABS: Bilirubin Negative (Negative); Blood, Urine Negative (Negative); Clarity Clear (Clear); Glucose, Urine (Dipstick) Normal (Negative); Ketone, Urine Trace mg/dL (Negative); Leukocyte Negative Leu/uL (Negative); Nitrite Negative (Negative); Protein, Urine (Dipstick) 10 mg/dL (Neg-Trace); Specific Gravity, Urine 1.033 (1.002-1.036); Urobilinogen Normal mg/dL (Less than 2); pH, Urine 5.5 (5.0-9.0)
--- NOTE | 2020-03-17 23:08 | CT ---
EXAM: CT ABDOMEN AND PELVIS HISTORY: Suprapubic pain, starting mid morning COMPARISON: 09/26/2019. CORRELATION: PET report 11/25/2019. Procedure: Multiple contiguous axial images were obtained and a CT of the abdomen and pelvis with IV contrast. C oronal reformats were performed. FINDINGS: Lower Chest: Scarring and atelectasis in the left lobe. Small right-sided pleural effusion. Adjacent atelectasis. Vessels: Normal caliber aorta Heart: Normal heart size. No significant pericardial fluid Abdomen: Portal vein:Patent Gallbladder: No calcified gallstones. Normal caliber wall. Liver: within normal limits. Pancreas: 0.4 cm hypodensity in the tail of the pancreas (coronal image #77). Spleen: within normal limits. Adrenals: within normal limits. Kidneys: Symmetric enhancement of the kidneys. Bilaterally, no obstructive uropathy. There is asymmet priscilla right greater than left perinephric fat stranding. Peritoneum: No free air. There is fluid tracking along the right paracolic gutter, similar to the pre vious examination. Bowel: Limited evaluation due to the lack of oral contrast administration. No evidence of bowel obstr uction. Ileocecal junction is unremarkable. Normal caliber appendix. Scattered fecal material in a nondistended, nondilated colon. Diverticulosis, without evidence of diverticulitis. Mesentery and Retroperitoneum: No enlarged mesenteric or retroperitoneal lymph nodes. Abdominal Wall: within normal limits. Pelvis: Reproductive Organs: Reproductive organs are unremarkable. Pelvis: No mass, lymphadenopathy, free air or free fluid. Bladder: within normal limits. Bones: within normal limits. IMPRESSION: 1. Improved right-sided pleural effusion. 2. Decreased right retroperitoneal fluid. 3. Nonspecific hypodensity involving the tip of the pancreas, unchanged from the CT exam of 09/26/2019 . Transcribed Date/Time: 03/18/2020 5:19 PM
[2020-03-17] MEDS ORDERED: Ketorolac Tromethamine 30 MG/ML VIAL ONE (23:43)
== END 2020-03-17 23:56 | disposition home or self-care (01) ==
LOC: ERS 20:12
DX: R10.30 Lower abdominal pain, unspecified (principal); G47.30 Sleep apnea, unspecified; E78.2 Mixed hyperlipidemia; I10 Essential (primary) hypertension; F41.9 Anxiety disorder, unspecified; F32.9 Major depressive disorder, single episode, unspecified; F17.220 Nicotine dependence, chewing tobacco, uncomplicated; Z79.899 Other long term (current) drug therapy
CPT/HCPCS: 74177; 80053; 81003; 83690; 85025; 96374; 96375; 96376; J1885; J2270; J2405; Q9967

== ENCOUNTER 2023-11-08 09:42 | Outpatient (CLI) | payer BC | END 2023-11-08 09:43 | disposition home or self-care (01) | LOC: CT 09:42 | PROVIDERS: ATTEND Physician Assistant Medical | DX: K59.00 Constipation, unspecified (principal); K56.609 Unspecified intestinal obstruction, unspecified as to partial versus complete obstruction; Z98.84 Bariatric surgery status; Z85.72 Personal history of non-Hodgkin lymphomas | CPT/HCPCS: 74178 ==